=== PATIENT | male | born 1980 | race Caucasian/White ===

== ENCOUNTER 2020-10-02 09:44 | Inpatient (IN) | payer BC ==
[2020-10-02] MEDS ORDERED: ACETAMINOPHEN TAB 500 MG TAB PO STA (09:58)
--- NOTE | 2020-10-02 10:32 | ED ---
General Adult HPI - General Chief complaint: Fever Stated complaint: Fever,weakness Time Seen by Provider: 10/02/20 09:56 Source: patient Mode of arrival: wheelchair Limitations: physical limitation - History of Present Illness Initial comments: Dictation was produced using [employer] dictation software. please excuse any grammatical, word or spelling errors. This patient was cared for during a federal and state declared state of emergency secondary to Covid 19 Chief Complaint: 40-year-old malepast medical history presents to the emergency department for shortness of breath and fever History of Present Illness: 40-year-old male he states that he's been having 3-4 days of feeling weak, fever and shortness of breath. States that his recently recovered from bronchitis. Patient does not know if he's been exposed to anyone with Covid 19. Denies any medical history. Does not take any medications on a regular basis. He states that his Shortness of breath is minimal. Patient has no other complaints at this time. The ROS documented in this emergency department record has been reviewed and confirmed by me. Those systems with pertinent positive or negative responses have been documented in the HPI. All other systems are other negative and/or noncontributory. PHYSICAL EXAM: General Impression: Alert and oriented x3, not in acute distress HEENT: Normocephalic atraumatic, extra-ocular movements intact, pupils equal and reactive to light bilaterally, mucous membranes moist. Cardiovascular: Heart regular rate and rhythm Chest: Able to complete full sentences, no retractions, no tachypnea Abdomen: abdomen soft, non-tender, non-distended, no organomegaly Musculoskeletal: Pulses present and equal in all extremities, no peripheral edema Motor: no focal deficits noted Neurological: CN II-XII grossly intact, no focal motor or sensory deficits noted Skin: Intact with no visualized rashes Psych: Normal affect and mood ED course: 40-year-old male presents emergency department for fever, shortness of breath. Signs upon arrival shows temperature 1.1, heart rate of 111, oxygen saturation of 87% on room air. Clinical presentation concerning for Covid 19 Laboratory evaluation obtained. CBC, white count is unremarkable. D-dimer slightly elevated at 0.7. Psych is secondary to Covid 19 which he is positive for. No embolic panel shows mild acute kidney injury. His inflammatory markers are elevated. Chest x-ray shows by lateral infiltrates. Patient will be admitted for hypoxic respiratory failure secondary to Covid. He was given Decadron and Tylenol. She'll be admitted to [facility] hospitalist group. Case discussed with Dr. Menard that will be willing to accept patients care. EKG interpretation: Ventricular rate 106, sinus tachycardia,. Interval 134, QRS 86. No MA prolongation, no QTC prolongation, no ST or T-wave changes noted. EKG compared to 06/21/2016 showing no changes. Overall, this EKG is unremarkable - Related Data Home Medications Medication Instructions Recorded Confirmed No Known Home Medications 06/21/16 10/02/20 Allergies Allergy/AdvReac Type Severity Reaction Status Date / Time No Known Allergies Allergy Verified 10/02/20 10:31 Review of Systems ROS Statement: Those systems with pertinent positive or pertinent negative responses have been documented in the HPI. ROS Other: All systems not noted in ROS Statement are negative. Past Medical History Past Medical History: No Reported History History of Any Multi-Drug Resistant Organisms: None Reported Past Surgical History: Adenoidectomy, Tonsillectomy Past Psychological History: No Psychological Hx Reported Smoking Status: Former smoker Past Alcohol Use History: None Reported Past Drug Use History: None Reported General Exam Limitations: physical limitation Course Vital Signs 10/02/20 10/02/20 10/02/20 09:47 10:44 10:48 Temperature 103.1 F H Pulse Rate 111 H 105 H Respiratory 22 18 18 Rate Blood Pressure 117/75 132/81 O2 Sat by Pulse 87 L 92 L Oximetry 10/02/20 11:00 Temperature 102.5 F H Pulse Rate 105 H Respiratory 18 Rate Blood Pressure 124/64 O2 Sat by Pulse 92 L Oximetry Medical Decision Making - Lab Data Result diagrams: 10/02/20 10:44 10/02/20 10:44 Lab Results 10/02/20 10/02/20 10/02/20 Range/Units 10:44 10:44 10:44 WBC 5.6 (3.8-10.6) k/uL RBC 4.83 (4.30-5.90) m/uL Hgb 14.5 (13.0-17.5) gm/dL Hct 42.8 (39.0-53.0) % MCV 88.6 (80.0-100.0) fL MCH 29.9 (25.0-35.0) pg MCHC 33.8 (31.0-37.0) g/dL RDW 13.7 (11.5-15.5) % Plt Count 183 (150-450) k/uL MPV 7.0 Neutrophils % 78 % Lymphocytes % 16 % Monocytes % 4 % Eosinophils % 0 % Basophils % 0 % Neutrophils # 4.4 (1.3-7.7) k/uL Lymphocytes # 0.9 L (1.0-4.8) k/uL Monocytes # 0.3 (0-1.0) k/uL Eosinophils # 0.0 (0-0.7) k/uL Basophils # 0.0 (0-0.2) k/uL PT 10.7 (9.0-12.0) sec INR 1.0 (<1.2) APTT 24.6 (22.0-30.0) sec D-Dimer 0.70 H (<0.60) mg/L FEU Sodium 138 (137-145) mmol/L Potassium 3.7 (3.5-5.1) mmol/L Chloride 103 (98-107) mmol/L Carbon Dioxide 26 (22-30) mmol/L Anion Gap 9 mmol/L BUN 24 H (9-20) mg/dL Creatinine 1.78 H (0.66-1.25) mg/dL Est GFR (CKD-EPI)AfAm 54 (>60 ml/min/1.73 sqM) Est GFR (CKD-EPI)NonAf 47 (>60 ml/min/1.73 sqM) Glucose 140 H (74-99) mg/dL Plasma Lactic Acid Ankit (0.7-2.0) mmol/L Calcium 8.6 (8.4-10.2) mg/dL Magnesium 2.0 (1.6-2.3) mg/dL Total Bilirubin 0.5 (0.2-1.3) mg/dL AST 73 H (17-59) U/L ALT 41 (4-49) U/L Alkaline Phosphatase 103 (38-126) U/L Lactate Dehydrogenase 1420 H (313-618) U/L C-Reactive Protein 61.1 H (<10.0) mg/L Total Protein 7.0 (6.3-8.2) g/dL Albumin 4.2 (3.5-5.0) g/dL Coronavirus (PCR) (Not Detectd) 10/02/20 10/02/20 Range/Units 10:44 10:56 WBC (3.8-10.6) k/uL RBC (4.30-5.90) m/uL Hgb (13.0-17.5) gm/dL Hct (39.0-53.0) % MCV (80.0-100.0) fL MCH (25.0-35.0) pg MCHC (31.0-37.0) g/dL RDW (11.5-15.5) % Plt Count (150-450) k/uL MPV Neutrophils % % Lymphocytes % % Monocytes % % Eosinophils % % Basophils % % Neutrophils # (1.3-7.7) k/uL Lymphocytes # (1.0-4.8) k/uL Monocytes # (0-1.0) k/uL Eosinophils # (0-0.7) k/uL Basophils # (0-0.2) k/uL PT (9.0-12.0) sec INR (<1.2) APTT (22.0-30.0) sec D-Dimer (<0.60) mg/L FEU Sodium (137-145) mmol/L Potassium (3.5-5.1) mmol/L Chloride (98-107) mmol/L Carbon Dioxide (22-30) mmol/L Anion Gap mmol/L BUN (9-20) mg/dL Creatinine (0.66-1.25) mg/dL Est GFR (CKD-EPI)AfAm (>60 ml/min/1.73 sqM) Est GFR (CKD-EPI)NonAf (>60 ml/min/1.73 sqM) Glucose (74-99) mg/dL Plasma Lactic Acid Ankit 1.3 (0.7-2.0) mmol/L Calcium (8.4-10.2) mg/dL Magnesium (1.6-2.3) mg/dL Total Bilirubin (0.2-1.3) mg/dL AST (17-59) U/L ALT (4-49) U/L Alkaline Phosphatase (38-126) U/L Lactate Dehydrogenase (313-618) U/L C-Reactive Protein (<10.0) mg/L Total Protein (6.3-8.2) g/dL Albumin (3.5-5.0) g/dL Coronavirus (PCR) Detected A (Not Detectd) Disposition Clinical Impression: COVID-19 Disposition: ADMITTED IP TO THIS HOSP Condition: Fair Referrals: Kong Ring MD [Primary Care Provider] - 1-2 days Decision Time: 12:28
--- NOTE | 2020-10-02 10:37 | XR ---
EXAMINATION TYPE: XR chest 1V portable DATE OF EXAM: 10/02/2020 Comparison: 06/21/2016 Clinical History: 40-year-old male with shortness of breath, Suspected COVID-19 pneumonia Findings: The heart is borderline enlarged. Patchy right suprahilar opacity and increased diffuse interstitial patchy opacities. No sizable effusion. Impression: 1. Borderline heart size. 2. New bilateral interstitial infiltrates can be seen with COVID pneumonia.
[2020-10-02 10:59] LABS: Basophils % (A) 0 %; Eosinophils % (A) 0 %; HCT 42.8 % (39.0-53.0); HGB 14.5 gm/dL (13.0-17.5); Lymphocytes # (A) 0.9 k/uL (1.0-4.8); Lymphocytes % (A) 16 %; MCH 29.9 pg (25.0-35.0); MCHC 33.8 g/dL (31.0-37.0); MCV 88.6 fL (80.0-100.0); Monocytes # (A) 0.3 k/uL (0-1.0); Monocytes % (A) 4 %; Neutrophils # (A) 4.4 k/uL (1.3-7.7); Neutrophils % (A) 78 %; Platelet Count 183 k/uL (150-450); RBC 4.83 m/uL (4.30-5.90); RDW 13.7 % (11.5-15.5); WBC 5.6 k/uL (3.8-10.6)
[2020-10-02 11:13] LABS: Albumin 4.2 g/dL (3.5-5.0); C Reactive Protein 61.1 mg/L (<10.0); Calcium 8.6 mg/dL (8.4-10.2); Potassium 3.7 mmol/L (3.5-5.1); Total Bilirubin 0.5 mg/dL (0.2-1.3)
[2020-10-02 11:15] LABS: Partial Thromboplastin Time 24.6 sec (22.0-30.0); Prothrombin Time 10.7 sec (9.0-12.0)
[2020-10-02 11:19] LABS: D-Dimer 0.7 mg/L FEU (<0.60)
[2020-10-02] MEDS ORDERED: NALOXONE 0.4 MG/ML 1 ML VIAL IV PRN (12:05)
[2020-10-02] MEDS ORDERED: DEXAMETHASONE SOD PHOSPHATE 10 MG/ML 1 ML VIAL IV STA (12:06)
[2020-10-02] MEDS: SODIUM CHLORIDE 0.9% 1,000 ML IV SCH (12:20)
--- NOTE | 2020-10-02 14:01 | P.HPIM ---
History of Present Illness Pleasant 48-year-old male came in with complains of Bernadette's weakness fever he denied any shortness of breath patient but patient is hypoxic and requiring 4 L of oxygen patient denied any significant cough diarrhea. Patient is found to have Covid 19. Patient had a chest x-ray which is showing bilateral interstitial infiltrates. Review of Systems REVIEW OF SYSTEMS: CONSTITUTIONAL: As mentioned in HPI HEENT: No recent visual problems or hearing problems. Denied any sore throat. CARDIOVASCULAR: No chest pain, orthopnea, PND, no palpitations, no syncope. PULMONARY: No shortness of breath, no cough, no hemoptysis. GASTROINTESTINAL: No diarrhea, no nausea, no vomiting, no abdominal pain. NEUROLOGICAL: No headaches, no weakness, no numbness. HEMATOLOGICAL: Denies any bleeding or petechiae. GENITOURINARY: Denies any burning micturition, frequency, or urgency. MUSCULOSKELETAL/RHEUMATOLOGICAL: Denies any joint pain, swelling, or any muscle pain. ENDOCRINE: Denies any polyuria or polydipsia. The rest of the 14-point review of systems is negative. Past Medical History Past Medical History: No Reported History History of Any Multi-Drug Resistant Organisms: None Reported Past Surgical History: Adenoidectomy, Tonsillectomy Past Psychological History: No Psychological Hx Reported Smoking Status: Former smoker Past Alcohol Use History: None Reported Past Drug Use History: None Reported Medications and Allergies Home Medications Medication Instructions Recorded Confirmed Type No Known Home Medications 06/21/16 10/02/20 History Allergies Allergy/AdvReac Type Severity Reaction Status Date / Time No Known Allergies Allergy Verified 10/02/20 10:31 Physical Exam Vitals: Vital Signs Temp Pulse Resp BP Pulse Ox 10/02/20 13:00 100.4 F H 92 18 111/60 92 L 10/02/20 12:00 93 18 116/71 92 L 10/02/20 11:00 102.5 F H 105 H 18 124/64 92 L 10/02/20 10:48 18 10/02/20 10:44 105 H 18 132/81 92 L 10/02/20 09:47 103.1 F H 111 H 22 117/75 87 L Intake and Output 10/01/20 10/02/20 10/02/20 22:59 06:59 14:59 Other: Weight 136.078 kg PHYSICAL EXAMINATION: GENERAL: The patient is alert and oriented x3, not in any acute distress. Obese HEENT: Pupils are round and equally reacting to light. EOMI. No scleral icterus. No conjunctival pallor. Normocephalic, atraumatic. No pharyngeal erythema. No thyromegaly. CARDIOVASCULAR: S1 and S2 present. No murmurs, rubs, or gallops. PULMONARY: Chest is clear to auscultation, no wheezing or crackles. ABDOMEN: Soft, nontender, nondistended, normoactive bowel sounds. No palpable organomegaly. MUSCULOSKELETAL: No joint swelling or deformity. EXTREMITIES: No cyanosis, clubbing, or pedal edema. NEUROLOGICAL: Gross neurological examination did not reveal any focal deficits. SKIN: No rashes. Results CBC & Chem 7: 10/02/20 10:44 10/02/20 10:44 Labs: Abnormal Lab Results - Last 24 Hours (Table) 10/02/20 10/02/20 10/02/20 Range/Units 10:44 10:44 10:44 Lymphocytes # 0.9 L (1.0-4.8) k/uL D-Dimer 0.70 H (<0.60) mg/L FEU BUN 24 H (9-20) mg/dL Creatinine 1.78 H (0.66-1.25) mg/dL Glucose 140 H (74-99) mg/dL AST 73 H (17-59) U/L Lactate Dehydrogenase 1420 H (313-618) U/L C-Reactive Protein 61.1 H (<10.0) mg/L Coronavirus (PCR) (Not Detectd) 10/02/20 Range/Units 10:56 Lymphocytes # (1.0-4.8) k/uL D-Dimer (<0.60) mg/L FEU BUN (9-20) mg/dL Creatinine (0.66-1.25) mg/dL Glucose (74-99) mg/dL AST (17-59) U/L Lactate Dehydrogenase (313-618) U/L C-Reactive Protein (<10.0) mg/L Coronavirus (PCR) Detected A (Not Detectd) Assessment and Plan Plan: Covid 19 pneumonia: Was started on Decadron, multivitamins, IV fluids patient probably will benefit from Remdesivir. -Acute hypoxic respiratory failure secondary to assessment #1 -Acute renal failure creatinine 1.7 baseline is around 1.2. Patient will be started on IV fluids -GI prophylaxis with Pepcid - DVT prophylaxis with heparin as patient has renal dysfunction, patient's d- dimer is 0.7
[2020-10-02] MEDS: HEPARIN SODIUM,PORCINE/PF 5,000 UNIT/0.5 ML SYRINGE SQ SCH (14:45)
[2020-10-02] MEDS: ASCORBIC ACID 500 MG TAB PO SCH ×2 (14:45→22:31)
[2020-10-02 16:18] LABS: Ferritin 291.4 ng/mL (22.0-322.0)
[2020-10-02] MEDS ORDERED: REMDESIVIR 200 MG in SODIUM CHLORIDE 0.9% 250 ML IVPB ONE (19:00)
[2020-10-02] MEDS: FAMOTIDINE 20 MG TAB PO SCH (22:31)
[2020-10-03] MEDS: HEPARIN SODIUM,PORCINE/PF 5,000 UNIT/0.5 ML SYRINGE SQ SCH ×2 (01:39→09:36)
[2020-10-03] MEDS: ACETAMINOPHEN TAB 325 MG TAB PO PRN ×3 (03:57→18:26)
[2020-10-03] MEDS: FAMOTIDINE 20 MG TAB PO SCH ×2 (09:36→22:47)
[2020-10-03] MEDS: ASCORBIC ACID 500 MG TAB PO SCH ×2 (09:37→22:47)
[2020-10-03] MEDS: ZINC SULFATE 220 MG CAP PO SCH (09:37)
--- NOTE | 2020-10-03 09:48 | CONS ---
CONSULTATION DATE OF SERVICE: 10/02/2020 REASON FOR CONSULTATION: COVID-19 infection. HISTORY OF PRESENT ILLNESS: The patient is a 40-year-old male presenting to the ER with chief complaints of generalized weakness, fever, and shortness of breath. This patient's symptoms have been going on for about 4 days before presentation to the hospital. 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 He has been starting to get some sore throat, fever as high as 102 to 103 degrees Fahrenheit with associated chills, generalized body aches, shortness of breath on minimal exertion. He also has got cough moderate intensity but not bringing up any sputum. Did not feel nauseated, decreased oral intake. No abdominal pain and did have some diarrhea. With these symptoms, the patient was evaluated by the ER physician. On arrival to the ER, the patient did have a fever of 103 degrees Fahrenheit. The patient is also hypoxic with O2 sats of 87% on room air, currently 91% on 6 L nasal cannula. The patient did have a normal white count with lymphopenia. Elevated D-dimer is 0.70. Creatinine was 1.78. AST elevated 73. Procalcitonin 0.86. LDH is 1420. CRP 61.1. COVID test was positive. The patient did have a chest x-ray reported to bilateral interstitial infiltrate that can be seen with COVID pneumonia. The patient has been admitted to the hospital. Infectious Disease was consulted for further management. DIAGNOSTIC IMPRESSION AND PLAN: Patient admitted to the hospital with a fever, shortness of breath, cough in this patient who did have a fever of 103 degrees Fahrenheit on admission, hypoxemia with O2 sats of 86% on room air evidence of bilateral multifocal pneumonia secondary to COVID- 19 infection. With his symptoms of hypoxemia, does qualify him remdesivir therapy. PLAN: 1. The patient was started on remdesivir 200 mg x1 followed by 100 mg daily for 4 more doses. 2. Lovenox, dexamethasone, Zinc, . 3. Droplet isolation and respiratory support. 4. I will follow on clinical condition and investigations to further adjust medication if needed. Thank you for this consultation. Will follow this patient along with you. MMODL / IJN: [id number] /
--- NOTE | 2020-10-03 12:01 | XR ---
EXAMINATION TYPE: XR chest 1V portable DATE OF EXAM: 10/03/2020 Comparison: 10/02/2020 Clinical History: 40-year-old male shortness of breath, low 02 Findings: Low lung volumes. Heart borderline enlarged. Patchy bilateral airspace opacities have progressed from 10/02/2020. No pleural effusion. Impression: Hypoventilatory changes and progressive bilateral diffuse patchy airspace disease.
[2020-10-03 12:18] LABS: ABG Base Excess 0.3 mmol/L; ABG HCO3 24 mmol/L (21-25); ABG Oxygen Saturation 99.2 % (94-97); ABG PCO2 34 mmHg (35-45); ABG PH 7.46 (7.35-7.45); ABG PO2 128 mmHg (83-108); ABG TCO2 25 mmol/L (19-24); Allen Test Performed? Yes
[2020-10-03] MEDS ORDERED: LORazepam 2 MG/ML INJ IV STA (14:06)
[2020-10-03] MEDS ORDERED: DEXAMETHASONE SOD PHOSPHATE 10 MG/ML 1 ML VIAL IV STA (14:06)
[2020-10-03] MEDS: SODIUM CHLORIDE 0.9% 1,000 ML IV SCH (14:12)
[2020-10-03] MEDS: DEXAMETHASONE SOD PHOSPHATE 10 MG/ML 1 ML VIAL IV SCH (14:39)
[2020-10-03] MEDS ORDERED: ENOXAPARIN 40 MG/0.4 ML SYRINGE SQ SCH (14:45)
[2020-10-03] MEDS: CHOLECALCIFEROL 25 MCG (1000 IU) TABLET PO SCH (15:14)
[2020-10-03] MEDS ORDERED: TOCILIZUMAB 800 MG in SODIUM CHLORIDE 0.9% 60 ML IV ONE (15:15)
--- NOTE | 2020-10-03 16:54 | P.CNPUL ---
History of Present Illness Consult date: 10/03/20 Requesting physician: Amarjit Payton Reason for consult: dyspnea, cough, hypoxemia, pneumonia, abnormal CXR/CT Chief complaint: Shortness of breath. History of present illness: 40-year-old male, who has no other past medical history, who comes into the emergency room, with 3-4 days of feeling weak, fever, cough, shortness of breath, and just feeling very fatigued. His apparently recently recovered from "bronchitis". Apparently the patient tested positive for coronavirus. We saw the patient in the emergency department. It was at the request of one of the ER nurses. The patient was on BiPAP with settings of IPAP 16, EPAP 6, and 100%. The patient was getting saline at 100 mL an hour. The patient had been started on REM. Rather than continue that, we chose to give him TOCI. His D- dimer test was 0.82. His blood gases showed a pO2 of 128, pCO2 34, and a pH of 7.46. That was on 100%. His electrolytes look pretty normal. His BUN was 24, creatinine was 1.78. Pro-calcitonin level was 0.86. C-reactive protein was 65.9. The chest x-ray showed diffuse bilateral opacities. Review of Systems REVIEW OF SYSTEMS: CONSTITUTIONAL: Weakness, fatigue, fever. NEUROLOGIC: [ Negative.] HEENT: [ Negative.] CARDIAC: [Negative.] PULMONARY: Shortness of breath, cough, chest congestion. GI: [Negative.] : [Negative.] RHEUMATOLOGIC: [ Negative.] IMMUNOLOGIC: [ Negative.] ENDOCRINE: [Negative. ] DERMATOLOGIC: [Negative.] Past Medical History Past Medical History: No Reported History History of Any Multi-Drug Resistant Organisms: None Reported Past Surgical History: Adenoidectomy, Tonsillectomy Past Anesthesia/Blood Transfusion Reactions: No Reported Reaction Smoking Status: Never smoker - Past Family History Mother Additional Family Medical History / Comment(s): Obese Father Family Medical History: Myocardial Infarction ([place]) Medications and Allergies Home Medications Medication Instructions Recorded Confirmed Type No Known Home Medications 06/21/16 10/02/20 History Allergies Allergy/AdvReac Type Severity Reaction Status Date / Time No Known Allergies Allergy Verified 10/02/20 10:31 Physical Exam Osteopathic Statement: *. No significant issues noted on an osteopathic struc tural exam other than those noted in the History and Physical/Consult. Vitals: Vital Signs Temp Pulse Resp BP Pulse Ox 10/03/20 16:00 100.3 F H 112 H 31 H 129/87 88 L 10/03/20 15:00 110 H 31 H 154/82 88 L 10/03/20 14:00 108 H 41 H 143/82 88 L 10/03/20 13:43 100.3 F H 10/03/20 13:30 112 H 30 H 131/84 86 L 10/03/20 13:00 112 H 30 H 136/81 87 L 10/03/20 12:30 115 H 28 H 140/81 92 L 10/03/20 12:00 118 H 33 H 159/81 89 L 10/03/20 11:50 116 H 28 H 159/81 84 L 10/03/20 11:30 120 H 27 H 159/81 75 L 10/03/20 11:00 103.1 F H 113 H 23 159/81 75 L 10/03/20 10:00 116 H 25 H 150/86 87 L 10/03/20 09:00 109 H 29 H 146/89 87 L 10/03/20 08:19 101 H 26 H 146/89 94 L 10/03/20 08:13 98.9 F 103 H 28 H 146/89 94 L 10/03/20 08:12 83 L 10/03/20 06:39 99.2 F 103 H 20 138/90 86 L 10/03/20 05:05 102.3 F H 109 H 22 147/70 86 L 10/03/20 03:46 102.8 F H 108 H 22 147/87 89 L 10/03/20 03:00 79 L 10/03/20 01:30 100 18 85 L 10/02/20 21:39 91 L 10/02/20 20:53 85 L 10/02/20 20:32 99.3 F 98 22 124/99 88 L 10/02/20 17:00 86 18 125/78 93 L Intake and Output 10/03/20 10/03/20 10/03/20 06:59 14:59 22:59 Output Total 475 Balance -475 Output: Urine 475 Other: Weight 136.078 kg Quite tachypnea. Currently on BiPAP. Mild conversational dyspnea. Saturations 88%. HEENT examination is grossly unremarkable. Neck supple. Full range of motion. No adenopathy thyromegaly or neck vein distention. Cardiovascular examination reveals regular rhythm rate. S1-S2 normal. No S3 or S4. No discernible murmur noted. Heart rate 112. Heart sounds are distant. Lungs reveal diffuse coarse rhonchi. Bibasilar crackles are noted. Breath sounds equal bilaterally. Abdomen soft bowel sounds are heard. No masses or tenderness. Extremities are intact. No cyanosis clubbing or edema. Skin is without rash or lesion. Neurologic examination is brief but nonfocal. Results - Laboratory Findings CBC and BMP: 10/02/20 10:44 10/02/20 10:44 ABG ABG pH 7.46 (7.35-7.45) H 10/03/20 12:15 ABG pCO2 34 mmHg (35-45) L 10/03/20 12:15 ABG pO2 128 mmHg (83-108) H 10/03/20 12:15 ABG O2 Saturation 99.2 % (94-97) H 10/03/20 12:15 PT/INR, D-dimer PT 10.7 sec (9.0-12.0) 10/02/20 10:44 INR 1.0 (<1.2) 10/02/20 10:44 D-Dimer 0.82 mg/L FEU (<0.60) H 10/03/20 16:11 Abnormal lab findings: Abnormal Labs 10/02/20 10/02/20 10/02/20 10:44 10:44 10:44 Lymphocytes # 0.9 L D-Dimer 0.70 H ABG pH ABG pCO2 ABG pO2 ABG Total CO2 ABG O2 Saturation BUN 24 H Creatinine 1.78 H Glucose 140 H AST 73 H Lactate Dehydrogenase 1420 H C-Reactive Protein 61.1 H Procalcitonin Coronavirus (PCR) 10/02/20 10/02/20 10/03/20 10:44 10:56 12:15 Lymphocytes # D-Dimer ABG pH 7.46 H ABG pCO2 34 L ABG pO2 128 H ABG Total CO2 25 H ABG O2 Saturation 99.2 H BUN Creatinine Glucose AST Lactate Dehydrogenase C-Reactive Protein Procalcitonin 0.86 H Coronavirus (PCR) Detected A 10/03/20 10/03/20 16:11 16:11 Lymphocytes # D-Dimer 0.82 H ABG pH ABG pCO2 ABG pO2 ABG Total CO2 ABG O2 Saturation BUN Creatinine Glucose AST Lactate Dehydrogenase C-Reactive Protein 65.9 H Procalcitonin Coronavirus (PCR) - Diagnostic Findings Chest x-ray: image reviewed Assessment and Plan Assessment: Acute hypoxemic respiratory failure secondary to COVID 19 pneumonitis. Obesity. No significant past medical history. Plan: Plan dated 10/01/2020. The patient's REM was discontinued. We chose to give the patient TOCI. The patient should also get Decadron, Lovenox, vitamin C, vitamin D3, and zinc. The patient is currently in the emergency department. He may need to come up to the intensive care unit. Unfortunately, we do not have any ICU beds. Additional recommendations and suggestions are forthcoming. Prognosis is guarded. We also ordered 1 unit of convalescent plasma. Time with Patient: Greater than 30
[2020-10-03] MEDS ORDERED: REMDESIVIR 100 MG in SODIUM CHLORIDE 0.9% 250 ML IVPB SCH (18:00)
[2020-10-03] MEDS: LACTATED RINGERS 1,000 ML IV SCH (18:17)
--- NOTE | 2020-10-03 21:55 | P.PN ---
Progress Note - Text Progress Note Date: 10/03/20 History of Present Illness Pleasant 48-year-old male, whose PCP is Dr. Ring, came in with complains of weakness fever he denied any shortness of breath patient but patient is hypoxic and requiring 4 L of oxygen patient denied any significant cough diarrhea. Patient is found to have Covid 19. Patient had a chest x-ray which is showing bilateral interstitial infiltrates. Today-tired short of breath. Febrile. Hypoxic. Placed on BiPAP. Review of systems: Was done for constitutional, cardiovascular, GI, pulmonary. relevant finding as above Active Medications Acetaminophen (Acetaminophen Tab 325 Mg Tab) 650 mg PO Q6HR PRN PRN Reason: Mild Pain or Fever > 100.5 Last Admin: 10/03/20 18:26 Dose: 650 mg Documented by: Ascorbic Acid (Ascorbic Acid 500 Mg Tab) 500 mg PO BID [facility] Last Admin: 10/03/20 09:37 Dose: 500 mg Documented by: Cholecalciferol (Cholecalciferol 25 Mcg (1000 Iu) Tablet) 125 mcg PO DAILY [facility] Last Admin: 10/03/20 15:14 Dose: 125 mcg Documented by: Dexamethasone Sodium Phosphate (Dexamethasone Sod Phosphate 10 Mg/Ml 1 Ml Vial) 6 mg IV DAILY [facility] Last Admin: 10/03/20 14:39 Dose: Not Given Documented by: Enoxaparin Sodium (Enoxaparin 40 Mg/0.4 Ml Syringe) 40 mg SQ DAILY [facility] Last Admin: 10/03/20 15:17 Dose: 40 mg Documented by: Famotidine (Famotidine 20 Mg Tab) 20 mg PO BID [facility] Last Admin: 10/03/20 09:36 Dose: 20 mg Documented by: Lactated Ringer's (Lactated Ringers) 1,000 mls @ 125 mls/hr IV .Q8H [facility] Last Admin: 10/03/20 18:17 Dose: 125 mls/hr Documented by: Naloxone HCl (Naloxone 0.4 Mg/Ml 1 Ml Vial) 0.2 mg IV Q2M PRN PRN Reason: Opioid Reversal Zinc Sulfate (Zinc Sulfate 220 Mg Cap) 220 mg PO DAILY [facility] Last Admin: 10/03/20 09:37 Dose: 220 mg Documented by: On examination: VITAL SIGNS: 103.1, 120, 27, 159/81, 75% on high flow oxygen GENERAL APPEARANCE: BMI 41.8, laying in bed, short of breath with BiPAP . RESPIRATORY: Respiratory effort increased. NEUROLOGICAL: No facial asymmetry. Moving all 4 limbs. PSYCHIATRY: Alert and oriented x3. Mood and affect anxious. Rest of the exam as per pulmonary and nursing INVESTIGATIONS, reviewed in the clinical context: D-dimer 0.82. AB.46, pCO2 34, pO2 128 CRP 65.9 Chest x-ray film personally reviewed by me-bilateral confluent infiltrates Admission labs: Pro-calcitonin 0.86 Coronavirus [PCR]: Detected Creatinine 1.78 Assessment and Plan Covid 19 pneumonia: Not improving -on Decadron, multivitamins, Lovenox. Also on vitamin C, vitamin D, Pepcid, zinc Remdesivir, ACTEMRA given today Sepsis from COVID 19 pneumonia IV fluids. Follow clinically -Acute hypoxic respiratory failure secondary to COVID 19 pneumonia, worsening on high flow oxygen placed on BiPAP. 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 Continue with IV fluids. Follow labs. Check UA -Morbid obesity BMI 41.8 Follow weight loss diet as an outpatient and follow with PCP Care was discussed with the patient. Pulmonary and ID were consulted. Given the complexity and severity of patient's condition expect the patient to be in the hospital at least for 2 overnights
--- NOTE | 2020-10-03 23:54 | PN ---
PROGRESS NOTE DATE OF SERVICE: 10/03/2020. REASON FOR FOLLOW UP: COVID-19 pneumonia. INTERVAL HISTORY: The patient did go into respiratory distress requiring BiPAP. The patient has been spiking fever of 101-102 degrees Fahrenheit. The patient denies having any chest pain. He did have a cough, not bringing up any sputum. No vomiting or diarrhea has been reported. PHYSICAL EXAMINATION: Blood pressure 132/83 with a pulse of 90. Temperature 100.2. He is 95% on BiPAP. General description is a middle-aged male lying in bed in no distress. RESPIRATORY system: Unlabored breathing, decreased breath sounds in the base. No wheeze. HEART S1, S2. Regular rate and rhythm. ABDOMEN: Soft, no tenderness. LABS: Hemoglobin is 14.5, white count is 5.7, BUN of 24, creatinine 1.78. Did have elevated LDH and CRP. Blood culture has been negative. DIAGNOSTIC IMPRESSION AND PLAN: Patient with acute COVID-19 infection in this patient with acute respiratory failure. The patient now seems to have worsening of his clinical condition. The patient did receive a dose of Actemra. Remdesivir was discontinued even in my clinical opinion may have helped the patient if continued. The patient is currently on dexamethasone, Lovenox, zinc, ascorbic acid. Pulmonary is managing his COVID-19. Infectious Disease will sign off. Please call back with any questions arise in his infectious disease care. MMODL / IJN: [id number] /
[2020-10-04] MEDS: ENOXAPARIN 40 MG/0.4 ML SYRINGE SQ SCH ×3 (00:09→20:06)
[2020-10-04] MEDS: LACTATED RINGERS 1,000 ML IV SCH ×3 (01:59→20:06)
[2020-10-04 08:12] LABS: ABG Base Excess 3.2 mmol/L; ABG HCO3 28 mmol/L (21-25); ABG Oxygen Saturation 85.2 % (94-97); ABG PCO2 45 mmHg (35-45); ABG TCO2 29 mmol/L (19-24); Allen Test Performed? Yes
[2020-10-04 08:14] LABS: ABG PO2 50 mmHg (83-108)
--- NOTE | 2020-10-04 08:33 | XR ---
EXAMINATION TYPE: XR chest 1V DATE OF EXAM: 10/04/2020 COMPARISON: 10/03/2020 INDICATION: Short of breath TECHNIQUE: Single frontal view of the chest is obtained. FINDINGS: The heart size is normal. The pulmonary vasculature is normal. Diffuse patchy infiltrates are present bilaterally similar to prior exam. Correlate for atypical numb er IMPRESSION: 1. Stable diffuse patchy infiltrates present bilaterally
[2020-10-04 09:23] LABS: African American GFR (CKD) >90 (>60 ml/min/1.73 sqM); Anion Gap 8 mmol/L; Blood Urea Nitrogen 26 mg/dL (9-20); C Reactive Protein 81.8 mg/L (<10.0); Calcium 8.7 mg/dL (8.4-10.2); Carbon Dioxide 27 mmol/L (22-30); Chloride 108 mmol/L (98-107); Glucose 146 mg/dL (74-99); Non-African American GFR(CKD) 87 (>60 ml/min/1.73 sqM); Potassium 4.4 mmol/L (3.5-5.1); Sodium 143 mmol/L (137-145)
[2020-10-04] MEDS: DEXAMETHASONE SOD PHOSPHATE 10 MG/ML 1 ML VIAL IV SCH (09:27)
[2020-10-04] MEDS: FAMOTIDINE 20 MG TAB PO SCH ×2 (10:25→20:06)
[2020-10-04] MEDS: ASCORBIC ACID 500 MG TAB PO SCH ×2 (10:25→20:06)
[2020-10-04] MEDS: CHOLECALCIFEROL 25 MCG (1000 IU) TABLET PO SCH (10:25)
[2020-10-04] MEDS: ZINC SULFATE 220 MG CAP PO SCH (10:25)
[2020-10-04 11:58] LABS: Glucose,Whole Blood 151 mg/dL (75-99)
--- NOTE | 2020-10-04 12:15 | P.PN ---
Subjective Progress Note Date: 10/04/20 Principal diagnosis: Hypoxemic respiratory failure. 40-year-old male, who has no other past medical history, who comes into the emergency room, with 3-4 days of feeling weak, fever, cough, shortness of breath, and just feeling very fatigued. His apparently recently recovered from "bronchitis". Apparently the patient tested positive for coronavirus. We saw the patient in the emergency department. It was at the request of one of the ER nurses. The patient was on BiPAP with settings of IPAP 16, EPAP 6, and 100%. The patient was getting saline at 100 mL an hour. The patient had been started on REM. Rather than continue that, we chose to give him TOCI. His D-dimer test was 0.82. His blood gases showed a pO2 of 128, pCO2 34, and a pH of 7.46. That was on 100%. His electrolytes look pretty normal. His BUN was 24, creatinine was 1.78. Pro-calcitonin level was 0.86. C-reactive protein was 65.9. The chest x-ray showed diffuse bilateral opacities. Progress note dated 10/04/2020. The patient remains on BiPAP at 100%. His saturations are only in the low to mid 80s. For that reason, the patient will be transferred to the intensive care unit. He is getting saline at KVO. His BiPAP settings included an IPAP of 16, EPAP 6. The patient did receive TOCI. In addition, he received the COVID vitamins, Decadron, and Lovenox. Today's labs include a blood gas showing a pO2 of only 50, pCO2 45, and a pH is 7.40. That was on 100%. D-dimer today is 0. 83. Sodium 143, potassium 4.4, chlorides 108, CO2 27, anion gap 8, BUN 26, and creatinine 1.07. C-reactive protein is 81.8. Chest x-ray continues to show significant bilateral infiltrates. Objective - Vital Signs Vital signs: Vital Signs Temp 99.0 F 10/04/20 08:00 Pulse 90 10/04/20 08:00 Resp 20 10/04/20 10:05 BP 151/93 10/04/20 08:00 Pulse Ox 83 L 10/04/20 10:05 Intake & Output 04/11/1810/04/20 10/04/20 18:59 06:59 18:59 Intake Total 270 0 Output Total 50 200 Balance -50 70 0 Weight 136.078 kg 137 kg Intake: Oral 0 Blood Product 270 Ffp Convalescent Plasma 270 Cpd Unit [id number] Output: Urine 50 200 Other: Voiding Method Bedpan Urinal # Voids 1 - Exam Quite tachypnea. Currently on BiPAP. Mild conversational dyspnea. Saturations 83%. HEENT examination is grossly unremarkable. Neck supple. Full range of motion. No adenopathy thyromegaly or neck vein distention. Cardiovascular examination reveals regular rhythm rate. S1-S2 normal. No S3 or S4. No discernible murmur noted. Heart rate 99 bpm. Heart sounds are distant. Lungs reveal diffuse coarse rhonchi. Bibasilar crackles are noted. Breath sounds equal bilaterally. Abdomen soft bowel sounds are heard. No masses or tenderness. Extremities are intact. No cyanosis clubbing or edema. Skin is without rash or lesion. Neurologic examination is brief but nonfocal. - Labs CBC & Chem 7: 10/02/20 10:44 10/04/20 08:38 Labs: Abnormal Lab Results - Last 24 Hours (Table) 10/03/20 10/03/20 10/03/20 Range/Units 12:15 16:11 16:11 D-Dimer 0.82 H (<0.60) mg/L FEU ABG pH 7.46 H (7.35-7.45) ABG pCO2 34 L (35-45) mmHg ABG pO2 128 H (83-108) mmHg ABG HCO3 (21-25) mmol/L ABG Total CO2 25 H (19-24) mmol/L ABG O2 Saturation 99.2 H (94-97) % Chloride (98-107) mmol/L BUN (9-20) mg/dL Glucose (74-99) mg/dL POC Glucose (mg/dL) (75-99) mg/dL C-Reactive Protein 65.9 H (<10.0) mg/L 10/04/20 10/04/20 10/04/20 Range/Units 08:09 08:38 08:38 D-Dimer 0.83 H (<0.60) mg/L FEU ABG pH (7.35-7.45) ABG pCO2 (35-45) mmHg ABG pO2 50 L* (83-108) mmHg ABG HCO3 28 H (21-25) mmol/L ABG Total CO2 29 H (19-24) mmol/L ABG O2 Saturation 85.2 L (94-97) % Chloride 108 H (98-107) mmol/L BUN 26 H (9-20) mg/dL Glucose 146 H (74-99) mg/dL POC Glucose (mg/dL) (75-99) mg/dL C-Reactive Protein 81.8 H (<10.0) mg/L 10/04/20 Range/Units 11:55 D-Dimer (<0.60) mg/L FEU ABG pH (7.35-7.45) ABG pCO2 (35-45) mmHg ABG pO2 (83-108) mmHg ABG HCO3 (21-25) mmol/L ABG Total CO2 (19-24) mmol/L ABG O2 Saturation (94-97) % Chloride (98-107) mmol/L BUN (9-20) mg/dL Glucose (74-99) mg/dL POC Glucose (mg/dL) 151 H (75-99) mg/dL C-Reactive Protein (<10.0) mg/L Microbiology - Last 24 Hours (Table) 10/02/20 10:35 Blood Culture - Preliminary Blood No Growth after 24 hours 10/02/20 10:20 Blood Culture - Preliminary Blood No Growth after 24 hours Assessment and Plan Assessment: Acute hypoxemic respiratory failure secondary to COVID 19 pneumonitis. Obesity. No significant past medical history. Plan: Plan dated 10/01/2020. The patient's REM was discontinued. We chose to give the patient TOCI. The patient should also get Decadron, Lovenox, vitamin C, vitamin D3, and zinc. The patient is currently in the emergency department. He may need to come up to the intensive care unit. Unfortunately, we do not have any ICU beds. Additional recommendations and suggestions are forthcoming. Prognosis is guarded. We also ordered 1 unit of convalescent plasma. Plan dated 10/04/2020. Because of this increasing oxygen requirements, REM, was discontinued. We did give the patient TOCI. In addition, the patient will get Decadron, Lovenox, vitamin C, vitamin D3, and zinc. The patient was transferred to the intensive care unit for closer monitoring and observation. The patient may end up on the mechanical ventilator. We also ordered 1 unit of convalescent plasma. Additional recommendations and suggestions are forthcoming. Prognosis is very guarded. Time with Patient: Greater than 30
[2020-10-04 12:22] LABS: Glucose,Whole Blood 149 mg/dL (75-99)
[2020-10-04] MEDS: fentaNYL (PF) 50 MCG/ML 2 ML AMP IVP PRN (21:15)
--- NOTE | 2020-10-04 23:19 | P.PN ---
Progress Note - Text Progress Note Date: 10/04/20 History of Present Illness Pleasant 48-year-old male, whose PCP is Dr. Ring, came in with complains of weakness fever he denied any shortness of breath patient but patient is hypoxic and requiring 4 L of oxygen patient denied any significant cough diarrhea. Patient is found to have Covid 19. Patient had a chest x-ray which is showing bilateral interstitial infiltrates. Patient did get a dose of ACTEMRA. ID did start the patient on Remdesivir. Pulmonary did not feel the need for the same. Discontinued Today-patient remains quite short of breath. On BiPAP overnight. Tired. This morning patient being moved to the ICU. Review of systems: Was done for constitutional, cardiovascular, GI, pulmonary. relevant finding as above Active Medications Acetaminophen (Acetaminophen Tab 325 Mg Tab) 650 mg PO Q6HR PRN PRN Reason: Mild Pain or Fever > 100.5 Last Admin: 10/03/20 18:26 Dose: 650 mg Documented by: Ascorbic Acid (Ascorbic Acid 500 Mg Tab) 500 mg PO BID [facility] Last Admin: 10/04/20 20:06 Dose: 500 mg Documented by: Cholecalciferol (Cholecalciferol 25 Mcg (1000 Iu) Tablet) 125 mcg PO DAILY [facility] Last Admin: 10/04/20 10:25 Dose: Not Given Documented by: Dexamethasone Sodium Phosphate (Dexamethasone Sod Phosphate 10 Mg/Ml 1 Ml Vial) 6 mg IV DAILY [facility] Last Admin: 10/04/20 09:27 Dose: 6 mg Documented by: Enoxaparin Sodium (Enoxaparin 40 Mg/0.4 Ml Syringe) 40 mg SQ BID [facility] Last Admin: 10/04/20 20:06 Dose: 40 mg Documented by: Famotidine (Famotidine 20 Mg Tab) 20 mg PO BID [facility] Last Admin: 10/04/20 20:06 Dose: 20 mg Documented by: Fentanyl Citrate (Fentanyl (Pf) 50 Mcg/Ml 2 Ml Amp) 25 mcg IVP Q4H PRN PRN Reason: pain Last Admin: 10/04/20 21:15 Dose: 25 mcg Documented by: Lactated Ringer's (Lactated Ringers) 1,000 mls @ 20 mls/hr IV .Q24H [facility] Last Admin: 10/04/20 20:06 Dose: 20 mls/hr Documented by: Naloxone HCl (Naloxone 0.4 Mg/Ml 1 Ml Vial) 0.2 mg IV Q2M PRN PRN Reason: Opioid Reversal Zinc Sulfate (Zinc Sulfate 220 Mg Cap) 220 mg PO DAILY [facility] Last Admin: 10/04/20 10:25 Dose: Not Given Documented by: On examination: VITAL SIGNS: 100.1, 92, 27, 140 tube 100, 88% on 100% BiPAP GENERAL APPEARANCE: , laying in bed, short of breath with BiPAP . RESPIRATORY: Respiratory effort increased. NEUROLOGICAL: No facial asymmetry. Moving all 4 limbs. PSYCHIATRY: Alert and oriented x3. Mood and affect anxious. Rest of the exam as per pulmonary and nursing INVESTIGATIONS, reviewed in the clinical context: October 04: D-dimer 0.83 ABG: PO2 50 pCO2 45. Potassium 4.4 creatinine 1.07 CRP 81.8 D-dimer 0.82. AB.46, pCO2 34, pO2 128 CRP 65.9 Chest x-ray film personally reviewed by me-bilateral confluent infiltrates Admission labs: Pro-calcitonin 0.86 Coronavirus [PCR]: Detected Creatinine 1.78 Assessment and Plan Covid 19 pneumonia: Worsening -on Decadron, multivitamins, Lovenox.vitamin C, vitamin D, Pepcid, zinc (Remdesivir given 1 dose per ID. Discontinued by pulmonary.), ACTEMRA given Sepsis from COVID 19 pneumonia IV fluids. Follow clinically -Acute severe hypoxic respiratory failure secondary to COVID 19 pneumonia, worsening BiPAP. Patient being moved to the ICU today. -Acute renal failure creatinine 1.7 likely ATN.-Improving Continue with IV fluids. Creatinine 1.07 -Morbid obesity BMI 41.8 Follow weight loss diet as an outpatient and follow with PCP -Hyperglycemia secondary to steroids Follow Accu-Cheks Discussed with patient. moved to the ICU Follow with classification case manager
[2020-10-05] MEDS: fentaNYL (PF) 50 MCG/ML 2 ML AMP IVP PRN (01:52)
[2020-10-05 06:01] LABS: Basophils % (A) 0 %; Eosinophils # (A) 0.1 k/uL (0-0.7); Eosinophils % (A) 1 %; HCT 41.5 % (39.0-53.0); HGB 13.9 gm/dL (13.0-17.5); Lymphocytes # (A) 0.8 k/uL (1.0-4.8); Lymphocytes % (A) 12 %; MCH 30.5 pg (25.0-35.0); MCHC 33.6 g/dL (31.0-37.0); MCV 90.8 fL (80.0-100.0); Mean Platelet Volume 7.6; Monocytes # (A) 0.2 k/uL (0-1.0); Monocytes % (A) 4 %; Neutrophils # (A) 5.8 k/uL (1.3-7.7); Neutrophils % (A) 83 %; Platelet Count 254 k/uL (150-450); RBC 4.57 m/uL (4.30-5.90); RDW 13.6 % (11.5-15.5)
[2020-10-05 06:21] LABS: African American GFR (CKD) >90 (>60 ml/min/1.73 sqM); Anion Gap 7 mmol/L; Blood Urea Nitrogen 30 mg/dL (9-20); C Reactive Protein 53.1 mg/L (<10.0); Calcium 8.5 mg/dL (8.4-10.2); Carbon Dioxide 28 mmol/L (22-30); Chloride 107 mmol/L (98-107); Glucose 133 mg/dL (74-99); Non-African American GFR(CKD) 83 (>60 ml/min/1.73 sqM); Potassium 4.8 mmol/L (3.5-5.1); Sodium 142 mmol/L (137-145)
[2020-10-05 06:31] LABS: LDH 2858 U/L (313-618)
--- NOTE | 2020-10-05 07:45 | XR ---
Do disease in the EXAMINATION TYPE: XR chest 1V portable DATE OF EXAM: 10/05/2020 COMPARISON: The patient seems slightly HISTORY: Chest pain TECHNIQUE: Single frontal view of the chest is obtained. FINDINGS: Patchy basilar, perihilar and upper lobe and basilar infiltrates. No significant change seen. The cardiac silhouette size is within normal limits. The osseous structures are intact. IMPRESSION: 1. Patchy basilar, perihilar and upper lobe and basilar infiltrates. No significant change seen.
[2020-10-05] MEDS: ASCORBIC ACID 500 MG TAB PO SCH ×2 (08:55→21:07)
[2020-10-05] MEDS: CHOLECALCIFEROL 25 MCG (1000 IU) TABLET PO SCH (08:55)
[2020-10-05] MEDS: DEXAMETHASONE SOD PHOSPHATE 10 MG/ML 1 ML VIAL IV SCH (08:56)
[2020-10-05] MEDS: ZINC SULFATE 220 MG CAP PO SCH (08:56)
[2020-10-05] MEDS: ENOXAPARIN 40 MG/0.4 ML SYRINGE SQ SCH ×2 (08:56→20:59)
[2020-10-05] MEDS: FAMOTIDINE 20 MG TAB PO SCH ×2 (08:56→21:07)
[2020-10-05] MEDS ORDERED: LORazepam 2 MG/ML INJ IV PRN (09:50)
--- NOTE | 2020-10-05 13:22 | P.PN ---
Subjective Progress Note Date: 10/05/20 Principal diagnosis: Hypoxemic respiratory failure. 40-year-old male, who has no other past medical history, who comes into the emergency room, with 3-4 days of feeling weak, fever, cough, shortness of breath, and just feeling very fatigued. His apparently recently recovered from "bronchitis". Apparently the patient tested positive for coronavirus. We saw the patient in the emergency department. It was at the request of one of the ER nurses. The patient was on BiPAP with settings of IPAP 16, EPAP 6, and 100%. The patient was getting saline at 100 mL an hour. The patient had been started on REM. Rather than continue that, we chose to give him TOCI. His D-dimer test was 0.82. His blood gases showed a pO2 of 128, pCO2 34, and a pH of 7.46. That was on 100%. His electrolytes look pretty normal. His BUN was 24, creatinine was 1.78. Pro-calcitonin level was 0.86. C-reactive protein was 65.9. The chest x-ray showed diffuse bilateral opacities. Progress note dated 10/04/2020. The patient remains on BiPAP at 100%. His saturations are only in the low to mid 80s. For that reason, the patient will be transferred to the intensive care unit. He is getting saline at KVO. His BiPAP settings included an IPAP of 16, EPAP 6. The patient did receive TOCI. In addition, he received the COVID vitamins, Decadron, and Lovenox. Today's labs include a blood gas showing a pO2 of only 50, pCO2 45, and a pH is 7.40. That was on 100%. D-dimer today is 0. 83. Sodium 143, potassium 4.4, chlorides 108, CO2 27, anion gap 8, BUN 26, and creatinine 1.07. C-reactive protein is 81.8. Chest x-ray continues to show significant bilateral infiltrates. Progress note dated 10/05/2020. 40-year-old male with a history of acute hypoxemic respiratory failure secondary to COVID 19 pneumonitis. Currently, the patient remains on BiPAP with an IPAP of 16, EPAP of 8. FiO2 100%. Patient is getting lactated Ringer's at 20 mL an hour. We going to try him on some AIRVO today so that he can eat. White count is 7, hemoglobin 13.9, hematocrit is 41.5, and platelet count is normal. D- dimer is 0.67. Arterial blood gases yesterday showed a pO2 of 50, pCO2 45, pH is 7.40. Sodium 142, potassium 4.8, chlorides 107, CO2 28, anion gap 7, BUN 30, creatinine 1.10. LDH is 2858. C-reactive protein is 53.1. Chest x-ray shows bilateral patchy infiltrates, involving also areas of the lung, without change. Objective - Vital Signs Vital signs: Vital Signs Temp 99 F 10/05/20 04:00 Pulse 86 10/05/20 13:00 Resp 31 H 10/05/20 13:00 BP 129/76 10/05/20 13:00 Pulse Ox 87 L 10/05/20 13:00 Intake & Output 10/04/20 10/05/20 10/05/20 18:59 06:59 18:59 Intake Total 120 240 120 Output Total 460 705 300 Balance -340 -465 -180 Weight 138.4 kg Intake: IV 120 240 120 Lactated Ringers 1,000 ml 120 240 120 @ 20 mls/hr IV .Q24H [facility] Rx#:[id number] Oral 0 Output: Urine 460 705 300 Other: Voiding Method Indwelling Catheter Indwelling Catheter Indwelling Catheter - Exam Quite tachypneic. Currently on BiPAP. Mild conversational dyspnea. Saturations 89-90%.. HEENT examination is grossly unremarkable. Neck supple. Full range of motion. No adenopathy thyromegaly or neck vein distention. Cardiovascular examination reveals regular rhythm rate. S1-S2 normal. No S3 or S4. No discernible murmur noted. Heart rate 86 bpm. Heart sounds are distant. Lungs reveal diffuse coarse rhonchi. Bibasilar crackles are noted. Breath sounds equal bilaterally. Exam is unchanged. Abdomen soft bowel sounds are heard. No masses or tenderness. Extremities are intact. No cyanosis clubbing or edema. Skin is without rash or lesion. Neurologic examination is brief but nonfocal. - Labs CBC & Chem 7: 10/05/20 05:15 10/05/20 05:15 Labs: Abnormal Lab Results - Last 24 Hours (Table) 10/05/20 10/05/20 10/05/20 Range/Units 05:15 05:15 05:15 Lymphocytes # 0.8 L (1.0-4.8) k/uL D-Dimer 0.67 H (<0.60) mg/L FEU BUN 30 H (9-20) mg/dL Glucose 133 H (74-99) mg/dL Lactate Dehydrogenase 2858 H (313-618) U/L C-Reactive Protein 53.1 H (<10.0) mg/L Microbiology - Last 24 Hours (Table) 10/02/20 10:35 Blood Culture - Preliminary Blood No Growth after 72 hours 10/02/20 10:20 Blood Culture - Preliminary Blood No Growth after 72 hours Assessment and Plan Assessment: Acute hypoxemic respiratory failure secondary to COVID 19 pneumonitis. Obesity. No significant past medical history. Plan: Plan dated 10/01/2020. The patient's REM was discontinued. We chose to give the patient TOCI. The patient should also get Decadron, Lovenox, vitamin C, vitamin D3, and zinc. The patient is currently in the emergency department. He may need to come up to the intensive care unit. Unfortunately, we do not have any ICU beds. Additional recommendations and suggestions are forthcoming. Prognosis is guarded. We also ordered 1 unit of convalescent plasma. Plan dated 10/04/2020. Because of this increasing oxygen requirements, REM, was discontinued. We did give the patient TOCI. In addition, the patient will get Decadron, Lovenox, vitamin C, vitamin D3, and zinc. The patient was transferred to the intensive care unit for closer monitoring and observation. The patient may end up on the mechanical ventilator. We also ordered 1 unit of convalescent plasma. Additional recommendations and suggestions are forthcoming. Prognosis is very guarded. Plan dated 10/05/2020. The patient did receive TOCI. In addition, the patient is currently on Decadron, Lovenox, vitamin C, vitamin D3, and zinc. We transferred the patient to the intensive care unit for closer monitoring. In the end, he may require intubation and mechanical ventilation. Today we are going to attempt to use AIRVO, so that he might have something to eat. We will continue to follow. We did give him 1 unit of convalescent plasma. Prognosis is guarded. Additional recommendations and suggestions are forthcoming. Time with Patient: Greater than 30
--- NOTE | 2020-10-05 17:17 | P.PN ---
Progress Note - Text Progress Note Date: 10/05/20 History of Present Illness Pleasant 48-year-old male, whose PCP is Dr. Ring, came in with complains of weakness fever he denied any shortness of breath patient but patient is hypoxic and requiring 4 L of oxygen patient denied any significant cough diarrhea. Patient is found to have Covid 19. Patient had a chest x-ray which is showing bilateral interstitial infiltrates. Patient did get a dose of ACTEMRA. ID did start the patient on Remdesivir. Pulmonary did not feel the need for the same. Discontinued. Worsening short of breath. Placed on BiPAP October 04: being moved to the ICU. Today: In the ICU. Short of breath. On BiPAP. 16//100%. Tired. Sinus rhythm. Review of systems: Was done for constitutional, cardiovascular, GI, pulmonary. relevant finding as above Active Medications Acetaminophen (Acetaminophen Tab 325 Mg Tab) 650 mg PO Q6HR PRN PRN Reason: Mild Pain or Fever > 100.5 Last Admin: 10/03/20 18:26 Dose: 650 mg Documented by: Ascorbic Acid (Ascorbic Acid 500 Mg Tab) 500 mg PO BID [facility] Last Admin: 10/05/20 08:55 Dose: 500 mg Documented by: Cholecalciferol (Cholecalciferol 25 Mcg (1000 Iu) Tablet) 125 mcg PO DAILY [facility] Last Admin: 10/05/20 08:55 Dose: 125 mcg Documented by: Dexamethasone Sodium Phosphate (Dexamethasone Sod Phosphate 10 Mg/Ml 1 Ml Vial) 6 mg IV DAILY [facility] Last Admin: 10/05/20 08:56 Dose: 6 mg Documented by: Enoxaparin Sodium (Enoxaparin 40 Mg/0.4 Ml Syringe) 40 mg SQ BID [facility] Last Admin: 10/05/20 08:56 Dose: 40 mg Documented by: Famotidine (Famotidine 20 Mg Tab) 20 mg PO BID [facility] Last Admin: 10/05/20 08:56 Dose: 20 mg Documented by: Lactated Ringer's (Lactated Ringers) 1,000 mls @ 20 mls/hr IV .Q24H [facility] Last Admin: 10/04/20 20:06 Dose: 20 mls/hr Documented by: Lorazepam (Lorazepam 2 Mg/Ml Inj) 1 mg IV Q4HR PRN PRN Reason: Anxiety Last Admin: 10/05/20 09:56 Dose: 1 mg Documented by: Naloxone HCl (Naloxone 0.4 Mg/Ml 1 Ml Vial) 0.2 mg IV Q2M PRN PRN Reason: Opioid Reversal Zinc Sulfate (Zinc Sulfate 220 Mg Cap) 220 mg PO DAILY [facility] Last Admin: 10/05/20 08:56 Dose: 220 mg Documented by: On examination: VITAL SIGNS: Afebrile, 86, 31, 129/76, 87% on 100% BiPAP GENERAL APPEARANCE: , laying in bed, short of breath with BiPAP . RESPIRATORY: Respiratory effort increased. Accessory muscles a working NEUROLOGICAL: No facial asymmetry. Moving all 4 limbs. PSYCHIATRY: Alert and oriented x3. Mood and affect anxious. Rest of the exam as per pulmonary and nursing INVESTIGATIONS, reviewed in the clinical context: October 05: WBC 7 hemoglobin 13.9 d-dimer 0.67 CRP 53.1. Chest [id number] bibasilar. He had a little upper lobe and basilar infiltrates October 04: D-dimer 0.83 ABG: PO2 50 pCO2 45. Potassium 4.4 creatinine 1.07 CRP 81.8 D-dimer 0.82. AB.46, pCO2 34, pO2 128 CRP 65.9 Chest x-ray film personally reviewed by me-bilateral confluent infiltrates Admission labs: Pro-calcitonin 0.86 Coronavirus [PCR]: Detected Creatinine 1.78 Assessment and Plan Covid 19 pneumonia: Not improving -on Decadron, multivitamins, Lovenox.vitamin C, vitamin D, Pepcid, zinc (Remdesivir given 1 dose per ID. Discontinued by pulmonary.), ACTEMRA given Sepsis from COVID 19 pneumonia IV fluids. Follow clinically -Acute severe hypoxic respiratory failure secondary to COVID 19 pneumonia, not improving BiPAP. -100% -Acute renal failure creatinine 1.7 likely ATN.-Improving Continue with IV fluids. Creatinine 1.07 -Morbid obesity BMI 41.8 Follow weight loss diet as an outpatient and follow with PCP -Hyperglycemia secondary to steroids Follow Accu-Cheks Discussed with patient. Remains critically ill. Follow-with core feeder
[2020-10-05] MEDS: KETOROLAC 15 MG/ML 1 ML VIAL IVP PRN (18:30)
[2020-10-05] MEDS: LACTATED RINGERS 1,000 ML IV SCH (21:34)
[2020-10-06 04:59] LABS: Basophils % (A) 0 %; Eosinophils % (A) 0 %; HCT 42.5 % (39.0-53.0); HGB 14.2 gm/dL (13.0-17.5); Lymphocytes # (A) 0.8 k/uL (1.0-4.8); Lymphocytes % (A) 10 %; MCH 30.2 pg (25.0-35.0); MCHC 33.5 g/dL (31.0-37.0); MCV 90.1 fL (80.0-100.0); Mean Platelet Volume 7.5; Monocytes # (A) 0.3 k/uL (0-1.0); Monocytes % (A) 3 %; Neutrophils # (A) 6.7 k/uL (1.3-7.7); Neutrophils % (A) 85 %; Platelet Count 258 k/uL (150-450); RBC 4.71 m/uL (4.30-5.90); RDW 13.2 % (11.5-15.5); WBC 7.9 k/uL (3.8-10.6)
[2020-10-06 05:07] LABS: ALT 35 U/L (4-49); AST 73 U/L (17-59); African American GFR (CKD) >90 (>60 ml/min/1.73 sqM); Albumin 2.7 g/dL (3.5-5.0); Alkaline Phosphatase 68 U/L (38-126); Anion Gap 8 mmol/L; Blood Urea Nitrogen 28 mg/dL (9-20); C Reactive Protein 29.8 mg/L (<10.0); Calcium 8.2 mg/dL (8.4-10.2); Carbon Dioxide 26 mmol/L (22-30); Chloride 106 mmol/L (98-107); Glucose 90 mg/dL (74-99); Non-African American GFR(CKD) >90 (>60 ml/min/1.73 sqM); Potassium 4.3 mmol/L (3.5-5.1); Sodium 140 mmol/L (137-145); Total Bilirubin 0.6 mg/dL (0.2-1.3)
[2020-10-06] MEDS ORDERED: NOREPINEPHRINE 4 MG in SODIUM CHLORIDE 0.9% 250 ML IV SCH (07:45)
[2020-10-06] MEDS: ASCORBIC ACID 500 MG TAB PO SCH ×2 (09:06→20:23)
[2020-10-06] MEDS: CHOLECALCIFEROL 25 MCG (1000 IU) TABLET PO SCH (09:06)
[2020-10-06] MEDS: ZINC SULFATE 220 MG CAP PO SCH (09:07)
[2020-10-06] MEDS: FAMOTIDINE 20 MG TAB PO SCH ×2 (09:07→20:23)
[2020-10-06] MEDS: KETOROLAC 15 MG/ML 1 ML VIAL IVP PRN ×2 (09:07→21:16)
[2020-10-06] MEDS: DEXAMETHASONE SOD PHOSPHATE 10 MG/ML 1 ML VIAL IV SCH (09:07)
[2020-10-06] MEDS: ENOXAPARIN 40 MG/0.4 ML SYRINGE SQ SCH ×2 (09:07→20:23)
--- NOTE | 2020-10-06 11:10 | P.PN ---
Subjective Progress Note Date: 10/06/20 Principal diagnosis: Hypoxemic respiratory failure. 40-year-old male, who has no other past medical history, who comes into the emergency room, with 3-4 days of feeling weak, fever, cough, shortness of breath, and just feeling very fatigued. His apparently recently recovered from "bronchitis". Apparently the patient tested positive for coronavirus. We saw the patient in the emergency department. It was at the request of one of the ER nurses. The patient was on BiPAP with settings of IPAP 16, EPAP 6, and 100%. The patient was getting saline at 100 mL an hour. The patient had been started on REM. Rather than continue that, we chose to give him TOCI. His D-dimer test was 0.82. His blood gases showed a pO2 of 128, pCO2 34, and a pH of 7.46. That was on 100%. His electrolytes look pretty normal. His BUN was 24, creatinine was 1.78. Pro-calcitonin level was 0.86. C-reactive protein was 65.9. The chest x-ray showed diffuse bilateral opacities. Progress note dated 10/04/2020. The patient remains on BiPAP at 100%. His saturations are only in the low to mid 80s. For that reason, the patient will be transferred to the intensive care unit. He is getting saline at KVO. His BiPAP settings included an IPAP of 16, EPAP 6. The patient did receive TOCI. In addition, he received the COVID vitamins, Decadron, and Lovenox. Today's labs include a blood gas showing a pO2 of only 50, pCO2 45, and a pH is 7.40. That was on 100%. D-dimer today is 0. 83. Sodium 143, potassium 4.4, chlorides 108, CO2 27, anion gap 8, BUN 26, and creatinine 1.07. C-reactive protein is 81.8. Chest x-ray continues to show significant bilateral infiltrates. Progress note dated 10/05/2020. 40-year-old male with a history of acute hypoxemic respiratory failure secondary to COVID 19 pneumonitis. Currently, the patient remains on BiPAP with an IPAP of 16, EPAP of 8. FiO2 100%. Patient is getting lactated Ringer's at 20 mL an hour. We going to try him on some AIRVO today so that he can eat. White count is 7, hemoglobin 13.9, hematocrit is 41.5, and platelet count is normal. D- dimer is 0.67. Arterial blood gases yesterday showed a pO2 of 50, pCO2 45, pH is 7.40. Sodium 142, potassium 4.8, chlorides 107, CO2 28, anion gap 7, BUN 30, creatinine 1.10. LDH is 2858. C-reactive protein is 53.1. Chest x-ray shows bilateral patchy infiltrates, involving also areas of the lung, without change. Progress note dated 10/06/2020. We 1-year-old male, with history of acute hypoxemic respiratory failure, secondary to COVID 19 pneumonitis. The patient's currently on BiPAP with settings of IPAP 16, EPAP 8, INR 100%. His saturations are in the mid to high 80s. The patient is getting lactated Ringer's at 50 mL an hour. It was no chest x-ray today. Labs today include a white count 7.9, hemoglobin 14.2, hematocrit 42.5, and platelet count 258,000. D-dimer is 1.06. Sodium 140, potassium, chlorides 106, CO2 26, anion gap 8, BUN 28, and creatinine 0.95. C- reactive protein is down to 29.8 from 53.1. Objective - Vital Signs Vital signs: Vital Signs Temp 99.4 F 10/06/20 08:00 Pulse 76 10/06/20 09:00 Resp 30 H 10/06/20 09:00 BP 136/91 10/06/20 09:00 Pulse Ox 89 L 10/06/20 09:00 Intake & Output 10/05/20 10/06/20 10/06/20 18:59 06:59 18:59 Intake Total 240 720 150 Output Total 860 545 130 Balance -620 175 20 Weight 138.8 kg Intake: IV 240 240 150 Lactated Ringers 1,000 ml 240 240 150 @ 20 mls/hr IV .Q24H [facility] Rx#:[id number] Oral 480 Output: Urine 860 545 130 Other: Voiding Method Indwelling Catheter Indwelling Catheter Indwelling Catheter - Exam Quite tachypneic. Currently on BiPAP. Mild conversational dyspnea. Saturations 89-90%.. HEENT examination is grossly unremarkable. Neck supple. Full range of motion. No adenopathy thyromegaly or neck vein distention. Cardiovascular examination reveals regular rhythm rate. S1-S2 normal. No S3 or S4. No discernible murmur noted. Heart rate 76 bpm. Heart sounds are distant. Lungs reveal diffuse coarse rhonchi. Bibasilar crackles are noted. Breath sounds equal bilaterally. Exam is unchanged. Abdomen soft bowel sounds are heard. No masses or tenderness. Extremities are intact. No cyanosis clubbing or edema. Skin is without rash or lesion. Neurologic examination is brief but nonfocal. - Labs CBC & Chem 7: 10/06/20 03:56 10/06/20 03:56 Labs: Abnormal Lab Results - Last 24 Hours (Table) 10/06/20 10/06/20 10/06/20 Range/Units 03:56 03:56 03:56 Lymphocytes # 0.8 L (1.0-4.8) k/uL D-Dimer 1.06 H (<0.60) mg/L FEU BUN 28 H (9-20) mg/dL Calcium 8.2 L (8.4-10.2) mg/dL AST 73 H (17-59) U/L C-Reactive Protein 29.8 H (<10.0) mg/L Total Protein 5.0 L (6.3-8.2) g/dL Albumin 2.7 L (3.5-5.0) g/dL Microbiology - Last 24 Hours (Table) 10/02/20 10:35 Blood Culture - Preliminary Blood No Growth after 72 hours 10/02/20 10:20 Blood Culture - Preliminary Blood No Growth after 72 hours Assessment and Plan Assessment: Acute hypoxemic respiratory failure secondary to COVID 19 pneumonitis. Obesity. No significant past medical history. Plan: Plan dated 10/01/2020. The patient's REM was discontinued. We chose to give the patient TOCI. The patient should also get Decadron, Lovenox, vitamin C, vitamin D3, and zinc. The patient is currently in the emergency department. He may need to come up to the intensive care unit. Unfortunately, we do not have any ICU beds. Additional recommendations and suggestions are forthcoming. Prognosis is guarded. We also ordered 1 unit of convalescent plasma. Plan dated 10/04/2020. Because of this increasing oxygen requirements, REM, was discontinued. We did give the patient TOCI. In addition, the patient will get Decadron, Lovenox, vitamin C, vitamin D3, and zinc. The patient was transferred to the intensive care unit for closer monitoring and observation. The patient may end up on the mechanical ventilator. We also ordered 1 unit of convalescent plasma. Additional recommendations and suggestions are forthcoming. Prognosis is very guarded. Plan dated 10/05/2020. The patient did receive TOCI. In addition, the patient is currently on Dec adron, Lovenox, vitamin C, vitamin D3, and zinc. We transferred the patient to the intensive care unit for closer monitoring. In the end, he may require intubation and mechanical ventilation. Today we are going to attempt to use AIRVO, so that he might have something to eat. We will continue to follow. We did give him 1 unit of convalescent plasma. Prognosis is guarded. Additional recommendations and suggestions are forthcoming Plan dated 10/06/2020. Currently, the patient is doing about the same. He is currently on Decadron, Lovenox, vitamin C, vitamin D3, and zinc. The patient is trying to avoid intubation and mechanical ventilation. The patient did receive TOCI. The patient did not have a chest x-ray today. We will continue to watch the patient very carefully. He did get 1 unit of convalescent plasma. Prognosis is guarded. The patient in the end, may require intubation and mechanical ventilation.. Time with Patient: Greater than 30
[2020-10-06 12:53] LABS: Phosphorus 3.5 mg/dL (2.5-4.5)
[2020-10-06] MEDS: ALPRAZolam 0.25 MG TAB PO PRN ×2 (18:52→22:17)
[2020-10-06] MEDS: LACTATED RINGERS 1,000 ML IV SCH ×2 (20:25→20:30)
--- NOTE | 2020-10-06 21:21 | P.PN ---
Progress Note - Text Progress Note Date: 10/06/20 History of Present Illness Pleasant 48-year-old male, whose PCP is Dr. Ring, came in with complains of weakness fever he denied any shortness of breath patient but patient is hypoxic and requiring 4 L of oxygen patient denied any significant cough diarrhea. Patient is found to have Covid 19. Patient had a chest x-ray which is showing bilateral interstitial infiltrates. Patient did get a dose of ACTEMRA. ID did start the patient on Remdesivir. Pulmonary did not feel the need for the same. Discontinued. Worsening short of breath. Placed on BiPAP October 04: being moved to the ICU. Today: ICU. Short of breath. On BiPAP. 16//100%. Tired. Sinus rhythm. Awake Review of systems: Attempted for constitutional, cardiovascular, GI, pulmonary. relevant finding as above Active Medications Acetaminophen (Acetaminophen Tab 325 Mg Tab) 650 mg PO Q6HR PRN PRN Reason: Mild Pain or Fever > 100.5 Last Admin: 10/03/20 18:26 Dose: 650 mg Documented by: Alprazolam (Alprazolam 0.25 Mg Tab) 0.25 mg PO QID PRN PRN Reason: Anxiety Last Admin: 10/06/20 18:52 Dose: 0.25 mg Documented by: Ascorbic Acid (Ascorbic Acid 500 Mg Tab) 500 mg PO BID [facility] Last Admin: 10/06/20 20:23 Dose: 500 mg Documented by: Cholecalciferol (Cholecalciferol 25 Mcg (1000 Iu) Tablet) 125 mcg PO DAILY [facility] Last Admin: 10/06/20 09:06 Dose: 125 mcg Documented by: Dexamethasone Sodium Phosphate (Dexamethasone Sod Phosphate 10 Mg/Ml 1 Ml Vial) 6 mg IV DAILY [facility] Last Admin: 10/06/20 09:07 Dose: 6 mg Documented by: Enoxaparin Sodium (Enoxaparin 40 Mg/0.4 Ml Syringe) 40 mg SQ BID [facility] Last Admin: 10/06/20 20:23 Dose: 40 mg Documented by: Famotidine (Famotidine 20 Mg Tab) 20 mg PO BID [facility] Last Admin: 10/06/20 20:23 Dose: 20 mg Documented by: Lactated Ringer's (Lactated Ringers) 1,000 mls @ 20 mls/hr IV .Q24H [facility] Last Admin: 10/06/20 20:25 Dose: 20 mls/hr Documented by: Ketorolac Tromethamine (Ketorolac 15 Mg/Ml 1 Ml Vial) 15 mg IVP Q6HR PRN PRN Reason: Pain Stop: 10/08/20 18:04 Last Admin: 10/06/20 09:07 Dose: 15 mg Documented by: Naloxone HCl (Naloxone 0.4 Mg/Ml 1 Ml Vial) 0.2 mg IV Q2M PRN PRN Reason: Opioid Reversal Zinc Sulfate (Zinc Sulfate 220 Mg Cap) 220 mg PO DAILY [facility] Last Admin: 10/06/20 09:07 Dose: 220 mg Documented by: On examination: VITAL SIGNS: 99.5, 86, 24, 150/95, 88% on BiPAP 100% GENERAL APPEARANCE: , laying in bed, short of breath with BiPAP . Diet awake RESPIRATORY: Respiratory effort increased. Accessory muscles a working NEUROLOGICAL: No facial asymmetry. Moving all 4 limbs. PSYCHIATRY: Tired on since some questions. Mood and affect anxious. Rest of the exam as per pulmonary and nursing INVESTIGATIONS, reviewed in the clinical context: October 06: WBC 7.9 hemoglobin 14.2 platelets 258 d-dimer 1.06 potassium 4.3 creatinine 0.95 October 05: WBC 7 hemoglobin 13.9 d-dimer 0.67 CRP 53.1. Chest c-nog-lybfqo bibasilar. He had a little upper lobe and basilar infiltrates October 04: D-dimer 0.83 ABG: PO2 50 pCO2 45. Potassium 4.4 creatinine 1.07 CRP 81.8 D-dimer 0.82. AB.46, pCO2 34, pO2 128 CRP 65.9 Chest x-ray film personally reviewed by nv-bilateral confluent infiltrates Admission labs: Pro-calcitonin 0.86 Coronavirus [PCR]: Detected Creatinine 1.78 Assessment and Plan Covid 19 pneumonia: Not improving -on Decadron, multivitamins, Lovenox.vitamin C, vitamin D, Pepcid, zinc (Remdesivir given 1 dose per ID. Discontinued by pulmonary.), ACTEMRA given Sepsis from COVID 19 pneumonia IV fluids. Follow clinically -Acute severe hypoxic respiratory failure secondary to COVID 19 pneumonia, not improving BiPAP. -100% -Acute renal failure creatinine 1.7 likely ATN.-Corrected Continue with IV fluids. Creatinine 0.95 -Morbid obesity BMI 41.8 Follow weight loss diet as an outpatient and follow with PCP -Hyperglycemia secondary to steroids Follow Accu-Cheks -Hypoalbuminemia Acute phase reactant -Acute hypoxic metabolic encephalopathy Oxygen supplementation Discussed with patient. Remains critically ill. 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
[2020-10-07 04:13] LABS: D-Dimer 3.71 mg/L FEU (<0.60); Prothrombin Time 10.7 sec (9.0-12.0)
[2020-10-07 04:57] LABS: Ionized Calcium 4.8 mg/dL (4.5-5.3)
[2020-10-07] MEDS: KETOROLAC 15 MG/ML 1 ML VIAL IVP PRN (05:18)
[2020-10-07 05:44] LABS: African American GFR (CKD) >90 (>60 ml/min/1.73 sqM); Anion Gap 6 mmol/L; Blood Urea Nitrogen 32 mg/dL (9-20); Calcium 8.5 mg/dL (8.4-10.2); Carbon Dioxide 29 mmol/L (22-30); Chloride 108 mmol/L (98-107); Glucose 96 mg/dL (74-99); Magnesium 2.4 mg/dL (1.6-2.3); Non-African American GFR(CKD) 83 (>60 ml/min/1.73 sqM); Phosphorus 4.6 mg/dL (2.5-4.5); Potassium 4.1 mmol/L (3.5-5.1); Sodium 143 mmol/L (137-145)
[2020-10-07 05:49] LABS: LDH 3190 U/L (313-618)
[2020-10-07] MEDS: CHOLECALCIFEROL 25 MCG (1000 IU) TABLET PO SCH (09:25)
[2020-10-07] MEDS: DEXAMETHASONE SOD PHOSPHATE 10 MG/ML 1 ML VIAL IV SCH (09:26)
[2020-10-07] MEDS: ENOXAPARIN 40 MG/0.4 ML SYRINGE SQ SCH (09:26)
[2020-10-07] MEDS: ASCORBIC ACID 500 MG TAB PO SCH ×2 (09:26→21:00)
[2020-10-07] MEDS: FAMOTIDINE 20 MG TAB PO SCH ×2 (09:26→21:00)
[2020-10-07] MEDS: ZINC SULFATE 220 MG CAP PO SCH (09:26)
[2020-10-07] MEDS ORDERED: LIDOCAINE 1% INJ 10MG/ML (20 ML MDV) ONE (09:43)
--- NOTE | 2020-10-07 10:09 | XR ---
EXAMINATION TYPE: XR chest 1V portable DATE OF EXAM: 10/07/2020 Comparison: 10/05/2020 Clinical History: 40-year-old male covid/PNA Findings: Heart mildly enlarged. Diffuse interstitial and patchy opacities bilaterally. Aeration shows some imp rovement from prior. No pleural effusion. Impression: Improving aeration but with residual diffuse interstitial and patchy infiltrates.
[2020-10-07] MEDS ORDERED: LIDOCAINE 1% INJ 10MG/ML (20 ML MDV) SQ ONE (10:16)
--- NOTE | 2020-10-07 11:21 | XR ---
EXAMINATION TYPE: XR chest 1V portable DATE OF EXAM: 10/07/2020 Comparison: 10/07/2020, earlier today Clinical History: 40-year-old male PICC LINE Findings: Low lung volumes. Heart mildly enlarged. Diffuse interstitial changes. Some patchy density in the per iphery of the lower lung slightly increased. Right PICC tip at the lower SVC level. Impression: 1. Right PICC tip at the lower SVC level. 2. Mild cardiomegaly and continued diffuse interstitial opacities. 3. Developing patchy airspace disease versus pulmonary edema in the periphery of the lower lungs.
--- NOTE | 2020-10-07 11:41 | P.PN ---
Subjective Progress Note Date: 10/07/20 Principal diagnosis: Hypoxemic respiratory failure. 40-year-old male, who has no other past medical history, who comes into the emergency room, with 3-4 days of feeling weak, fever, cough, shortness of breath, and just feeling very fatigued. His apparently recently recovered from "bronchitis". Apparently the patient tested positive for coronavirus. We saw the patient in the emergency department. It was at the request of one of the ER nurses. The patient was on BiPAP with settings of IPAP 16, EPAP 6, and 100%. The patient was getting saline at 100 mL an hour. The patient had been started on REM. Rather than continue that, we chose to give him TOCI. His D-dimer test was 0.82. His blood gases showed a pO2 of 128, pCO2 34, and a pH of 7.46. That was on 100%. His electrolytes look pretty normal. His BUN was 24, creatinine was 1.78. Pro-calcitonin level was 0.86. C-reactive protein was 65.9. The chest x-ray showed diffuse bilateral opacities. Progress note dated 10/04/2020. The patient remains on BiPAP at 100%. His saturations are only in the low to mid 80s. For that reason, the patient will be transferred to the intensive care unit. He is getting saline at KVO. His BiPAP settings included an IPAP of 16, EPAP 6. The patient did receive TOCI. In addition, he received the COVID vitamins, Decadron, and Lovenox. Today's labs include a blood gas showing a pO2 of only 50, pCO2 45, and a pH is 7.40. That was on 100%. D-dimer today is 0. 83. Sodium 143, potassium 4.4, chlorides 108, CO2 27, anion gap 8, BUN 26, and creatinine 1.07. C-reactive protein is 81.8. Chest x-ray continues to show significant bilateral infiltrates. Progress note dated 10/05/2020. 40-year-old male with a history of acute hypoxemic respiratory failure secondary to COVID 19 pneumonitis. Currently, the patient remains on BiPAP with an IPAP of 16, EPAP of 8. FiO2 100%. Patient is getting lactated Ringer's at 20 mL an hour. We going to try him on some AIRVO today so that he can eat. White count is 7, hemoglobin 13.9, hematocrit is 41.5, and platelet count is normal. D- dimer is 0.67. Arterial blood gases yesterday showed a pO2 of 50, pCO2 45, pH is 7.40. Sodium 142, potassium 4.8, chlorides 107, CO2 28, anion gap 7, BUN 30, creatinine 1.10. LDH is 2858. C-reactive protein is 53.1. Chest x-ray shows bilateral patchy infiltrates, involving also areas of the lung, without change. Progress note dated 10/06/2020. We 1-year-old male, with history of acute hypoxemic respiratory failure, secondary to COVID 19 pneumonitis. The patient's currently on BiPAP with settings of IPAP 16, EPAP 8, INR 100%. His saturations are in the mid to high 80s. The patient is getting lactated Ringer's at 50 mL an hour. It was no chest x-ray today. Labs today include a white count 7.9, hemoglobin 14.2, hematocrit 42.5, and platelet count 258,000. D-dimer is 1.06. Sodium 140, potassium, chlorides 106, CO2 26, anion gap 8, BUN 28, and creatinine 0.95. C- reactive protein is down to 29.8 from 53.1. Progress note dated 10/07/2020. 40-year-old male with a history of acute hypoxemic respiratory failure secondary to COVID 19 pneumonitis. Currently, the patient is on BiPAP, at 16/8 and 100%. The patient is getting lactated Ringer's at 50 mL an hour. His saturations are only about 88%. The patient is trying to hold off from intubation and me chanical ventilation, as we've asked him multiple times. PT 10.7, INR 1, d- dimer 3.71, sodium 143, potassium 4.1, chlorides 108, CO2 29, anion gap 6, BUN 32, and creatinine 1.10. LDH is 3190. C-reactive protein is 19. Chest x-ray shows patchy airspace disease. Objective - Vital Signs Vital signs: Vital Signs Temp 99.0 F 10/07/20 08:00 Pulse 80 10/07/20 10:00 Resp 35 H 10/07/20 10:00 BP 146/87 04/09/21 10:00 Pulse Ox 85 L 10/07/20 10:00 Intake & Output 10/06/20 10/07/20 10/07/20 18:59 06:59 18:59 Intake Total 600 550 100 Output Total 660 705 165 Balance -60 -155 -65 Weight 138.8 kg 136.5 kg 136.5 kg Intake: IV 600 550 100 Lactated Ringers 1,000 ml 600 550 100 @ 50 mls/hr IV .Q20H [facility] Rx#:[id number] Output: Urine 660 705 165 Other: Voiding Method Indwelling Catheter Indwelling Catheter - Exam Quite tachypneic. Currently on BiPAP. Mild conversational dyspnea. Saturations 85-90%.. HEENT examination is grossly unremarkable. Neck supple. Full range of motion. No adenopathy thyromegaly or neck vein distention. Cardiovascular examination reveals regular rhythm rate. S1-S2 normal. No S3 or S4. No discernible murmur noted. Heart rate 80 bpm. Heart sounds are distant. Lungs reveal diffuse coarse rhonchi. Bibasilar crackles are noted. Breath sounds equal bilaterally. Exam is unchanged. Abdomen soft bowel sounds are heard. No masses or tenderness. Extremities are intact. No cyanosis clubbing or edema. Skin is without rash or lesion. Neurologic examination is brief but nonfocal. - Labs CBC & Chem 7: 10/06/20 03:56 10/07/20 03:45 Labs: Abnormal Lab Results - Last 24 Hours (Table) 10/06/20 10/07/20 10/07/20 Range/Units 03:56 03:45 03:45 D-Dimer 3.71 H (<0.60) mg/L FEU Chloride 108 H (98-107) mmol/L BUN 32 H (9-20) mg/dL Phosphorus 4.6 H (2.5-4.5) mg/dL Magnesium 2.4 H (1.6-2.3) mg/dL Lactate Dehydrogenase 3190 H (313-618) U/L C-Reactive Protein 19.0 H (<10.0) mg/L Triglycerides 329 H (<150) mg/dL Microbiology - Last 24 Hours (Table) 10/02/20 10:35 Blood Culture - Preliminary Blood No Growth after 96 hours 10/02/20 10:20 Blood Culture - Preliminary Blood No Growth after 96 hours Assessment and Plan Assessment: Acute hypoxemic respiratory failure secondary to COVID 19 pneumonitis. Obesity. No significant past medical history. Plan: Plan dated 10/01/2020. The patient's REM was discontinued. We chose to give the patient TOCI. The patient should also get Decadron, Lovenox, vitamin C, vitamin D3, and zinc. The patient is currently in the emergency department. He may need to come up to the intensive care unit. Unfortunately, we do not have any ICU beds. Additional re commendations and suggestions are forthcoming. Prognosis is guarded. We also ordered 1 unit of convalescent plasma. Plan dated 10/04/2020. Because of this increasing oxygen requirements, REM, was discontinued. We did give the patient TOCI. In addition, the patient will get Decadron, Lovenox, v itamin C, vitamin D3, and zinc. The patient was transferred to the intensive care unit for closer monitoring and observation. The patient may end up on the mechanical ventilator. We also ordered 1 unit of convalescent plasma. Additional recommendations and suggestions are forthcoming. Prognosis is very guarded. Plan dated 10/05/2020. The patient did receive TOCI. In addition, the patient is currently on Decadron, Lovenox, vitamin C, vitamin D3, and zinc. We transferred the patient to the intensive care unit for closer monitoring. In the end, he may require intubation and mechanical ventilation. Today we are going to attempt to use AIRVO, so that he might have something to eat. We will continue to follow. We did give him 1 unit of convalescent plasma. Prognosis is guarded. Additional recommendations and suggestions are forthcoming Plan dated 10/06/2020. Currently, the patient is doing about the same. He is currently on Decadron, Lovenox, vitamin C, vitamin D3, and zinc. The patient is trying to avoid intubation and mechanical ventilation. The patient did receive TOCI. The patient did not have a chest x-ray today. We will continue to watch the patient very carefully. He did get 1 unit of convalescent plasma. Prognosis is guarded. The patient in the end, may require intubation and mechanical ventilation.. Plan dated 10/07/2020. Currently, the patient's doing about the same. He remains on Decadron, Lovenox, vitamin C, vitamin D3, and zinc. The patient is hoping to avoid intubation and mechanical ventilation. The patient did receive TOCI and he did get convalescent plasma. His overall prognosis remains guarded. We will continue to follow the patient closely. In the end, the patient may end up on the mechanical ventilator. Again, he is hoping not to. Time with Patient: Greater than 30
--- NOTE | 2020-10-07 13:22 | IR ---
PICC LINE PLACEMENT: HISTORY: Infection requiring long-term antibiotic therapy PROCEDURE: Ultrasound guidance of PICC line placement. ADAPTIVE PHYSICAL EDUCATION SPECIALIST: Dr. Mendiola. COMPLICATIONS: None ANESTHESIA: 1. 1% Lidocaine locally. FINDINGS/TECHNIQUE: The procedure was explained to the patient. The risks, complications, benefits and alternatives were discussed and any questions were answered. Informed consent was obtained. The patient was placed supine on the fluoroscopic table and prepped and draped in the usual sterile fas ion. Utilizing a 21 gauge needle and sonographic guidance, access in the left basilic vein was achi eved and there is placement of a 0.018 guidewire. The vein is patent. A 5-F. sheath was placed over the guidewire. The guidewire and dilator were removed and a 5-F. Double lumen PICC line was placed through the sheath with the chest x-ray confirming the tip at the level of the SVC. The sheath was r emoved, the catheter was flushed and sutured into position. The patient was stable throughout the pr ocedure and remained stable upon discharge from the Department of Radiology. The vein puncture was patent under ultrasound. A mccormick scale image was obtained to document patency of the vein punctured. All elements of the maximal barrier technique were utilized. IMPRESSION: 1. Successful PICC line placement under ultrasound performed bedside within the ICU.
[2020-10-07] MEDS ORDERED: FAT EMULSION 20% 250 ML in EMPTY BAG 1 BAG IV SCH (15:00)
[2020-10-07] MEDS ORDERED: MVI, ADULT NO.4 WITH VIT K 10 ML, TRACE (CONC-1ML/DOSE) 1 ML in AMINO ACID 5%-D20W+LYTE... IV SCH ×3 (15:00)
[2020-10-07] MEDS: ALPRAZolam 0.25 MG TAB PO PRN (16:06)
--- NOTE | 2020-10-07 18:20 | P.PN ---
Progress Note - Text Progress Note Date: 10/07/20 History of Present Illness Pleasant 48-year-old male, whose PCP is Dr. Ring, came in with complains of weakness fever he denied any shortness of breath patient but patient is hypoxic and requiring 4 L of oxygen patient denied any significant cough diarrhea. Patient is found to have Covid 19. Patient had a chest x-ray which is showing bilateral interstitial infiltrates. Patient did get a dose of ACTEMRA. ID did start the patient on Remdesivir. Pulmonary did not feel the need for the same. Discontinued. Worsening short of breath. Placed on BiPAP October 04: being moved to the ICU. Today: ICU. Short of breath. On BiPAP. 16//100%. Sitting up reclining in bed. Tired. Communicating. Barely eating. Started on TPN and lipids Review of systems: Attempted for constitutional, cardiovascular, GI, pulmonary. relevant finding as above Active Medications Acetaminophen (Acetaminophen Tab 325 Mg Tab) 650 mg PO Q6HR PRN PRN Reason: Mild Pain or Fever > 100.5 Last Admin: 10/03/20 18:26 Dose: 650 mg Documented by: Alprazolam (Alprazolam 0.25 Mg Tab) 0.25 mg PO QID PRN PRN Reason: Anxiety Last Admin: 10/07/20 16:06 Dose: 0.25 mg Documented by: Ascorbic Acid (Ascorbic Acid 500 Mg Tab) 500 mg PO BID [facility] Last Admin: 10/07/20 09:26 Dose: 500 mg Documented by: Cholecalciferol (Cholecalciferol 25 Mcg (1000 Iu) Tablet) 125 mcg PO DAILY [facility] Last Admin: 10/07/20 09:25 Dose: 125 mcg Documented by: Dexamethasone Sodium Phosphate (Dexamethasone Sod Phosphate 10 Mg/Ml 1 Ml Vial) 6 mg IV DAILY [facility] Last Admin: 10/07/20 09:26 Dose: 6 mg Documented by: Enoxaparin Sodium (Enoxaparin 40 Mg/0.4 Ml Syringe) 40 mg SQ BID [facility] Last Admin: 10/07/20 09:26 Dose: 40 mg Documented by: Famotidine (Famotidine 20 Mg Tab) 20 mg PO BID [facility] Last Admin: 10/07/20 09:26 Dose: 20 mg Documented by: Lactated Ringer's (Lactated Ringers) 1,000 mls @ 50 mls/hr IV .Q20H [facility] Last Admin: 10/06/20 20:30 Dose: 50 mls/hr Documented by: Parenteral Vitamin Supplement 10 ml/ Zinc/Copper/Manganese/Selenium 1 ml/ Amino Ac/Electrol/Dextrose/Calcium 1,011 mls @ 30 mls/hr IV .Q24H [facility] Stop: 10/08/20 13:00 Last Admin: 10/07/20 15:20 Dose: 30 mls/hr Documented by: Parenteral Vitamin Supplement 10 ml/ Zinc/Copper/Manganese/Selenium 1 ml/ Amino Ac/Electrol/Dextrose/Calcium 1,011 mls @ 90 mls/hr IV .BY DURATION [facility] Amino Ac/Electrol/Dextrose/Calcium (Clinimix E 5%-20% Solution) 1,000 mls @ 90 mls/hr IV .BY DURATION [facility] Fat Emulsion Intravenous 250 (ml/ IV Solution) 250 mls @ 21 mls/hr IV [id number] [facility] Last Admin: 10/07/20 15:20 Dose: 21 mls/hr Documented by: Ketorolac Tromethamine (Ketorolac 15 Mg/Ml 1 Ml Vial) 15 mg IVP Q6HR PRN PRN Reason: Pain Stop: 10/08/20 18:04 Last Admin: 10/07/20 05:18 Dose: 15 mg Documented by: Naloxone HCl (Naloxone 0.4 Mg/Ml 1 Ml Vial) 0.2 mg IV Q2M PRN PRN Reason: Opioid Reversal Zinc Sulfate (Zinc Sulfate 220 Mg Cap) 220 mg PO DAILY [facility] Last Admin: 10/07/20 09:26 Dose: 220 mg Documented by: On examination: VITAL SIGNS: 85, 28, 143/87, 86% on BiPAP 100% GENERAL APPEARANCE: , Sitting up in bed, short of breath with BiPAP . Tired RESPIRATORY: Respiratory effort increased. Accessory muscles a working NEUROLOGICAL: No facial asymmetry. Moving all 4 limbs. PSYCHIATRY: Tired on since some questions. Mood and affect anxious. Rest of the exam as per pulmonary and nursing INVESTIGATIONS, reviewed in the clinical context: October 07: D-dimer 3.71 potassium 4.1 creatinine 1.10 October 06: WBC 7.9 hemoglobin 14.2 platelets 258 d-dimer 1.06 potassium 4.3 creatinine 0.95 October 05: WBC 7 hemoglobin 13.9 d-dimer 0.67 CRP 53.1. Chest z-xur-phxosl bibasi lar. He had a little upper lobe and basilar infiltrates October 04: D-dimer 0.83 ABG: PO2 50 pCO2 45. Potassium 4.4 creatinine 1.07 CRP 81.8 D-dimer 0.82. AB.46, pCO2 34, pO2 128 CRP 65.9 Chest x-ray film personally reviewed by me-bilateral confluent infiltrates Admission labs: Pro-calcitonin 0.86 Coronavirus [PCR]: Detected Creatinine 1.78 Assessment and Plan Covid 19 pneumonia: Not improving -on Decadron, multivitamins, Lovenox.vitamin C, vitamin D, Pepcid, zinc (Remdesivir given 1 dose per ID. Discontinued by pulmonary.), ACTEMRA given Sepsis from COVID 19 pneumonia IV fluids. Follow clinically -Acute severe hypoxic respiratory failure secondary to COVID 19 pneumonia, not improving BiPAP. -100% -Acute renal failure creatinine 1.7 likely ATN.-Corrected Continue with IV fluids. Creatinine 0.95 -Morbid obesity BMI 41.8 Follow weight loss diet as an outpatient and follow with PCP -Hyperglycemia secondary to steroids Follow Accu-Cheks -Hypoalbuminemia Acute phase reactant -Acute hypoxic metabolic encephalopathy-slow to respond Oxygen supplementation Given increasing d-dimer above 3. We'll switch to therapeutic dose of Lovenox. Given the prothrombotic nature of COVID 19 and increasing hypoxia on 100% BiPAP
[2020-10-07] MEDS: LACTATED RINGERS 1,000 ML IV SCH (19:36)
[2020-10-07] MEDS: ENOXAPARIN 120 MG/0.8 ML SYRINGE SQ SCH (21:00)
[2020-10-08] MEDS: KETOROLAC 15 MG/ML 1 ML VIAL IVP PRN (02:05)
[2020-10-08] MEDS: ALPRAZolam 0.25 MG TAB PO PRN (04:24)
[2020-10-08] MEDS: ACETAMINOPHEN TAB 325 MG TAB PO PRN (04:24)
[2020-10-08] MEDS ORDERED: ACETAMINOPHEN IV (For NPO) 1,000 MG in EMPTY BAG 1 BAG IVPB PRN (04:38)
[2020-10-08 05:18] LABS: ALT 121 U/L (4-49); AST 141 U/L (17-59); African American GFR (CKD) >90 (>60 ml/min/1.73 sqM); Albumin 3.2 g/dL (3.5-5.0); Alkaline Phosphatase 122 U/L (38-126); Anion Gap 4 mmol/L; Blood Urea Nitrogen 26 mg/dL (9-20); Calcium 8.3 mg/dL (8.4-10.2); Carbon Dioxide 27 mmol/L (22-30); Chloride 105 mmol/L (98-107); Glucose 129 mg/dL (74-99); Magnesium 2.3 mg/dL (1.6-2.3); Non-African American GFR(CKD) >90 (>60 ml/min/1.73 sqM); Phosphorus 3.9 mg/dL (2.5-4.5); Potassium 4.1 mmol/L (3.5-5.1); Sodium 136 mmol/L (137-145); Total Bilirubin 0.9 mg/dL (0.2-1.3); Total Protein 5.8 g/dL (6.3-8.2)
[2020-10-08] MEDS: FAMOTIDINE 20 MG TAB PO SCH ×2 (08:49→20:00)
[2020-10-08] MEDS: CHOLECALCIFEROL 25 MCG (1000 IU) TABLET PO SCH (08:49)
[2020-10-08] MEDS: DEXAMETHASONE SOD PHOSPHATE 10 MG/ML 1 ML VIAL IV SCH (08:49)
[2020-10-08] MEDS: ZINC SULFATE 220 MG CAP PO SCH (08:49)
[2020-10-08] MEDS: ASCORBIC ACID 500 MG TAB PO SCH ×2 (08:49→20:00)
[2020-10-08] MEDS: ENOXAPARIN 120 MG/0.8 ML SYRINGE SQ SCH ×2 (08:51→20:00)
--- NOTE | 2020-10-08 12:05 | P.PN ---
Subjective Progress Note Date: 10/08/20 Principal diagnosis: Hypoxemic respiratory failure. 40-year-old male, who has no other past medical history, who comes into the emergency room, with 3-4 days of feeling weak, fever, cough, shortness of breath, and just feeling very fatigued. His apparently recently recovered from "bronchitis". Apparently the patient tested positive for coronavirus. We saw the patient in the emergency department. It was at the request of one of the ER nurses. The patient was on BiPAP with settings of IPAP 16, EPAP 6, and 100%. The patient was getting saline at 100 mL an hour. The patient had been started on REM. Rather than continue that, we chose to give him TOCI. His D-dimer test was 0.82. His blood gases showed a pO2 of 128, pCO2 34, and a pH of 7.46. That was on 100%. His electrolytes look pretty normal. His BUN was 24, creatinine was 1.78. Pro-calcitonin level was 0.86. C-reactive protein was 65.9. The chest x-ray showed diffuse bilateral opacities. Progress note dated 10/04/2020. The patient remains on BiPAP at 100%. His saturations are only in the low to mid 80s. For that reason, the patient will be transferred to the intensive care unit. He is getting saline at KVO. His BiPAP settings included an IPAP of 16, EPAP 6. The patient did receive TOCI. In addition, he received the COVID vitamins, Decadron, and Lovenox. Today's labs include a blood gas showing a pO2 of only 50, pCO2 45, and a pH is 7.40. That was on 100%. D-dimer today is 0. 83. Sodium 143, potassium 4.4, chlorides 108, CO2 27, anion gap 8, BUN 26, and creatinine 1.07. C-reactive protein is 81.8. Chest x-ray continues to show significant bilateral infiltrates. Progress note dated 10/05/2020. 40-year-old male with a history of acute hypoxemic respiratory failure secondary to COVID 19 pneumonitis. Currently, the patient remains on BiPAP with an IPAP of 16, EPAP of 8. FiO2 100%. Patient is getting lactated Ringer's at 20 mL an hour. We going to try him on some AIRVO today so that he can eat. White count is 7, hemoglobin 13.9, hematocrit is 41.5, and platelet count is normal. D- dimer is 0.67. Arterial blood gases yesterday showed a pO2 of 50, pCO2 45, pH is 7.40. Sodium 142, potassium 4.8, chlorides 107, CO2 28, anion gap 7, BUN 30, creatinine 1.10. LDH is 2858. C-reactive protein is 53.1. Chest x-ray shows bilateral patchy infiltrates, involving also areas of the lung, without change. Progress note dated 10/06/2020. We 1-year-old male, with history of acute hypoxemic respiratory failure, secondary to COVID 19 pneumonitis. The patient's currently on BiPAP with settings of IPAP 16, EPAP 8, INR 100%. His saturations are in the mid to high 80s. The patient is getting lactated Ringer's at 50 mL an hour. It was no chest x-ray today. Labs today include a white count 7.9, hemoglobin 14.2, hematocrit 42.5, and platelet count 258,000. D-dimer is 1.06. Sodium 140, potassium, chlorides 106, CO2 26, anion gap 8, BUN 28, and creatinine 0.95. C- reactive protein is down to 29.8 from 53.1. Progress note dated 10/07/2020. 40-year-old male with a history of acute hypoxemic respiratory failure secondary to COVID 19 pneumonitis. Currently, the patient is on BiPAP, at 16/8 and 100%. The patient is getting lactated Ringer's at 50 mL an hour. His saturations are only about 88%. The patient is trying to hold off from intubation and me chanical ventilation, as we've asked him multiple times. PT 10.7, INR 1, d- dimer 3.71, sodium 143, potassium 4.1, chlorides 108, CO2 29, anion gap 6, BUN 32, and creatinine 1.10. LDH is 3190. C-reactive protein is 19. Chest x-ray shows patchy airspace disease. Progress note dated 10/08/2020. 40-year-old male with a history of acute hypoxemic respiratory failure. Currently, the patient remains on BiPAP at 16/8, and 100%. He is also getting TPN via a PICC line, and saline at 50 mL an hour. The patient will have a chest x-ray, done tomorrow morning, and a d-dimer as well. Currently, the patient is doing about the same. From today, sodium 136, potassium 4.1, chlorides 105, CO2 27, anion gap 4, BUN 26, and creatinine 0.92. AST was 141, ALT was 121. Triglycerides are 329. No chest x-ray was done today. We have offered the patient intubation and mechanical ventilation, but he would like to try to stay off the ventilator if possible. Objective - Vital Signs Vital signs: Vital Signs Temp 99.5 F 10/08/20 08:00 Pulse 79 10/08/20 10:00 Resp 22 10/08/20 10:00 BP 122/78 10/08/20 10:00 Pulse Ox 85 L 10/08/20 10:00 Intake & Output 10/07/20 10/08/20 10/08/20 18:59 06:59 18:59 Intake Total 600 600 210 Output Total 940 950 120 Balance -340 -350 90 Weight 136.5 kg Intake: IV 600 600 210 Lactated Ringers 1,000 ml 600 600 150 @ 50 mls/hr IV .Q20H [facility] Rx#:[id number] Mvi, Adult No.4 with Vit 60 K 10 ml Trace (Conc-1Ml/ Dose) 1 ml In Amino Acid 5%-D20w+Lytes*E* 1,000 ml @ 30 mls/hr IV .Q24H [facility] Rx#:[id number] Output: Urine 940 950 120 Other: Voiding Method Indwelling Catheter Indwelling Catheter - Exam Quite tachypneic. Currently on BiPAP. Mild conversational dyspnea. Saturations 85-90%.. HEENT examination is grossly unremarkable. Neck supple. Full range of motion. No adenopathy thyromegaly or neck vein distention. Cardiovascular examination reveals regular rhythm rate. S1-S2 normal. No S3 or S4. No discernible murmur noted. Heart rate 79 bpm. Heart sounds are distant. Lungs reveal diffuse coarse rhonchi. Bibasilar crackles are noted. Breath sounds equal bilaterally. Abdomen soft bowel sounds are heard. No masses or tenderness. Extremities are intact. No cyanosis clubbing or edema. Skin is without rash or lesion. Neurologic examination is brief but nonfocal. - Labs CBC & Chem 7: 10/06/20 03:56 10/08/20 04:37 Labs: Abnormal Lab Results - Last 24 Hours (Table) 10/08/20 Range/Units 04:37 Sodium 136 L (137-145) mmol/L BUN 26 H (9-20) mg/dL Glucose 129 H (74-99) mg/dL Calcium 8.3 L (8.4-10.2) mg/dL AST 141 H (17-59) U/L ALT 121 H (4-49) U/L Total Protein 5.8 L (6.3-8.2) g/dL Albumin 3.2 L (3.5-5.0) g/dL Microbiology - Last 24 Hours (Table) 10/02/20 10:35 Blood Culture - Preliminary Blood No Growth after 120 hours 10/02/20 10:20 Blood Culture - Preliminary Blood No Growth after 120 hours Assessment and Plan Assessment: Acute hypoxemic respiratory failure secondary to COVID 19 pneumonitis. Obesity. No significant past medical history. Plan: Plan dated 10/01/2020. The patient's REM was discontinued. We chose to give the patient TOCI. The patient should also get Decadron, Lovenox, vitamin C, vitamin D3, and zinc. The patient is currently in the emergency department. He may need to come up to the intensive care unit. Unfortunately, we do not have any ICU beds. Additional recommendations and suggestions are forthcoming. Prognosis is guarded. We also ordered 1 unit of convalescent plasma. Plan dated 10/04/2020. Because of this increasing oxygen requirements, REM, was discontinued. We did give the patient TOCI. In addition, the patient will get Decadron, Lovenox, vitamin C, vitamin D3, and zinc. The patient was transferred to the intensive care unit for closer monitoring and observation. The patient may end up on the mechanical ventilator. We also ordered 1 unit of convalescent plasma. Additional recommendations and suggestions are forthcoming. Prognosis is very guarded. Plan dated 10/05/2020. The patient did receive TOCI. In addition, the patient is currently on Decadron, Lovenox, vitamin C, vitamin D3, and zinc. We transferred the patient to the intensive care unit for closer monitoring. In the end, he may require intubation and mechanical ventilation. Today we are going to attempt to use AIRVO, so that he might have something to eat. We will continue to follow. We did give him 1 unit of convalescent plasma. Prognosis is guarded. Additional recommendations and suggestions are forthcoming Plan dated 10/06/2020. Currently, the patient is doing about the same. He is currently on Decadron, Lovenox, vitamin C, vitamin D3, and zinc. The patient is trying to avoid intubation and mechanical ventilation. The patient did receive TOCI. The patient did not have a chest x-ray today. We will continue to watch the patient very carefully. He did get 1 unit of convalescent plasma. Prognosis is guarded. The patient in the end, may require intubation and mechanical ventilation.. Plan dated 10/07/2020. Currently, the patient's doing about the same. He remains on Decadron, Lovenox, vitamin C, vitamin D3, and zinc. The patient is hoping to avoid intubation and mechanical ventilation. The patient did receive TOCI and he did get convalescent plasma. His overall prognosis remains guarded. We will continue to follow the patient closely. In the end, the patient may end up on the mechanical ventilator. Again, he is hoping not to. Plan dated 10/08/2020. The patient will have a chest x-ray done and a d-dimer done tomorrow. The patient remains on BiPAP, settings of IPAP 16, EPAP 8, and 100%. His saturations are running in the mid 80s or so. He is on TPN at 30 mL an hour, and saline at 50 mL an hour. Again, we did offer him intubation and mechanical ventilation, but he did not want it at this time. The patient did receive convalescent plasma, and TOCI. Prognosis is guarded. We will continue to follow the patient closely. Additional recommendations and suggestions are forthcoming. Time with Patient: Greater than 30
[2020-10-08] MEDS: LACTATED RINGERS 1,000 ML IV SCH (15:14)
[2020-10-08] MEDS: 1: MVI, ADULT NO.4 WITH VIT K 10 ML, TRACE (CONC-1ML/DOSE) 1 ML in AMINO ACID 5%-D20W+LY IV SCH ×3 (16:24)
--- NOTE | 2020-10-08 21:38 | P.PN ---
Progress Note - Text Progress Note Date: 10/08/20 History of Present Illness Pleasant 48-year-old male, whose PCP is Dr. Ring, came in with complains of weakness fever he denied any shortness of breath patient but patient is hypoxic and requiring 4 L of oxygen patient denied any significant cough diarrhea. Patient is found to have Covid 19. Patient had a chest x-ray which is showing bilateral interstitial infiltrates. Patient did get a dose of ACTEMRA. ID did start the patient on Remdesivir. Pulmonary did not feel the need for the same. Discontinued. Worsening short of breath. Placed on BiPAP October 04: being moved to the ICU. Today: ICU. Short of breath. On BiPAP. 16//100%. Sitting up reclining in bed. Tired. Communicating. Barely eating. TPN and lipids. Telemetry-sinus rhythm Review of systems: Attempted for constitutional, cardiovascular, GI, pulmonary. relevant finding as above Active Medications Acetaminophen (Acetaminophen Tab 325 Mg Tab) 650 mg PO Q6HR PRN PRN Reason: Mild Pain or Fever > 100.5 Last Admin: 10/03/20 18:26 Dose: 650 mg Documented by: Alprazolam (Alprazolam 0.25 Mg Tab) 0.25 mg PO QID PRN PRN Reason: Anxiety Last Admin: 10/07/20 16:06 Dose: 0.25 mg Documented by: Ascorbic Acid (Ascorbic Acid 500 Mg Tab) 500 mg PO BID [facility] Last Admin: 10/08/20 20:00 Dose: 500 mg Documented by: Cholecalciferol (Cholecalciferol 25 Mcg (1000 Iu) Tablet) 125 mcg PO DAILY [facility] Last Admin: 10/08/20 08:49 Dose: 125 mcg Documented by: Dexamethasone Sodium Phosphate (Dexamethasone Sod Phosphate 10 Mg/Ml 1 Ml Vial) 6 mg IV DAILY [facility] Last Admin: 10/08/20 08:49 Dose: 6 mg Documented by: Enoxaparin Sodium (Enoxaparin 120 Mg/0.8 Ml Syringe) 120 mg SQ Q12HR [facility] Last Admin: 10/08/20 20:00 Dose: 120 mg Documented by: Famotidine (Famotidine 20 Mg Tab) 20 mg PO BID [facility] Last Admin: 10/08/20 20:00 Dose: 20 mg Documented by: Lactated Ringer's (Lactated Ringers) 1,000 mls @ 50 mls/hr IV .Q20H [facility] Last Admin: 10/08/20 15:14 Dose: 50 mls/hr Documented by: Parenteral Vitamin Supplement 10 ml/ Zinc/Copper/Manganese/Selenium 1 ml/ Amino Ac/Electrol/Dextrose/Calcium 1,011 mls @ 90 mls/hr IV .BY DURATION [facility] Last Admin: 10/08/20 16:24 Dose: 90 mls/hr Documented by: Amino Ac/Electrol/Dextrose/Calcium (Clinimix E 5%-20% Solution) 1,000 mls @ 90 mls/hr IV .BY DURATION [facility] Fat Emulsion Intravenous 250 (ml/ IV Solution) 250 mls @ 21 mls/hr IV [id number]@0900 [facility] Last Admin: 10/07/20 15:20 Dose: 21 mls/hr Documented by: Acetaminophen 1,000 mg/ IV (Solution) 100 mls @ 400 mls/hr IVPB Q6HR PRN PRN Reason: Fever and/ or Pain Stop: 10/09/20 00:14 Last Admin: 10/08/20 05:00 Dose: 400 mls/hr Documented by: Dexmedetomidine HCl 400 mcg/ (IV Solution) 100 mls @ 0 mls/hr IV .Q0M [facility]; Protocol Stop: 10/09/20 21:00 Naloxone HCl (Naloxone 0.4 Mg/Ml 1 Ml Vial) 0.2 mg IV Q2M PRN PRN Reason: Opioid Reversal Zinc Sulfate (Zinc Sulfate 220 Mg Cap) 220 mg PO DAILY [facility] Last Admin: 10/08/20 08:49 Dose: 220 mg Documented by: On examination: VITAL SIGNS: 98.8, 87, 31, 130 76, 83% on 100% BiPAP GENERAL APPEARANCE: , Sitting up in bed, short of breath with BiPAP . Tired RESPIRATORY: Respiratory effort increased. Accessory muscles a working NEUROLOGICAL: No facial asymmetry. Moving all 4 limbs following commands. PSYCHIATRY:. Mood and affect anxious. Rest of the exam as per pulmonary and nursing INVESTIGATIONS, reviewed in the clinical context: October 08: Potassium 4.1 October 07: D-dimer 3.71 potassium 4.1 creatinine 1.10 October 06: WBC 7.9 hemoglobin 14.2 platelets 258 d-dimer 1.06 potassium 4.3 creatinine 0.95 October 05: WBC 7 hemoglobin 13.9 d-dimer 0.67 CRP 53.1. Chest d-lub-zijjpu bibasilar. He had a little upper lobe and basilar infiltrates October 04: D-dimer 0.83 ABG: PO2 50 pCO2 45. Potassium 4.4 creatinine 1.07 CRP 81.8 D-dimer 0.82. AB.46, pCO2 34, pO2 128 CRP 65.9 Chest x-ray film personally reviewed by me-bilateral confluent infiltrates Admission labs: Pro-calcitonin 0.86 Coronavirus [PCR]: Detected Creatinine 1.78 Assessment and Plan Covid 19 pneumonia: Not improving -on Decadron, multivitamins, Lovenox.vitamin C, vitamin D, Pepcid, zinc (Remdesivir given 1 dose per ID. Discontinued by pulmonary.), ACTEMRA given Sepsis from COVID 19 pneumonia IV fluids. Follow clinically -Acute severe hypoxic respiratory failure secondary to COVID 19 pneumonia, not improving BiPAP. -100% -Acute renal failure creatinine 1.7 likely ATN.-Corrected Continue with IV fluids. Creatinine 0.95 -Morbid obesity BMI 41.8 Follow weight loss diet as an outpatient and follow with PCP -Hyperglycemia secondary to steroids Follow Accu-Cheks -Hypoalbuminemia Acute phase reactant -Acute hypoxic metabolic encephalopathy-slow to respond Oxygen supplementation Prognosis guarded. 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
[2020-10-08] MEDS: DEXMEDETOMIDINE/0.9% NACL(PMX) 400 MCG in EMPTY BAG 1 BAG IV SCH (21:51)
[2020-10-09] MEDS ORDERED: ACETAMINOPHEN IV (For NPO) 1,000 MG in EMPTY BAG 1 BAG IVPB PRN (00:17)
[2020-10-09] MEDS: 1: MVI, ADULT NO.4 WITH VIT K 10 ML, TRACE (CONC-1ML/DOSE) 1 ML in AMINO ACID 5%-D20W+LY IV SCH ×6 (03:41→14:21)
[2020-10-09] MEDS: LACTATED RINGERS 1,000 ML IV SCH (03:43)
[2020-10-09] MEDS: DEXMEDETOMIDINE/0.9% NACL(PMX) 400 MCG in EMPTY BAG 1 BAG IV SCH ×2 (04:11→09:02)
[2020-10-09 04:52] LABS: Basophils # (A) 0.1 k/uL (0-0.2); Basophils % (A) 0 %; Eosinophils # (A) 0.3 k/uL (0-0.7); Eosinophils % (A) 2 %; Lymphocytes # (A) 0.9 k/uL (1.0-4.8); Lymphocytes % (A) 8 %; MCH 29.1 pg (25.0-35.0); Mean Platelet Volume 7.3; Monocytes # (A) 0.3 k/uL (0-1.0); Monocytes % (A) 2 %; Neutrophils # (A) 10.3 k/uL (1.3-7.7); Neutrophils % (A) 87 %; Platelet Count 192 k/uL (150-450); RBC 5.17 m/uL (4.30-5.90); RDW 13.8 % (11.5-15.5); WBC 11.9 k/uL (3.8-10.6)
[2020-10-09 05:11] LABS: African American GFR (CKD) >90 (>60 ml/min/1.73 sqM); Anion Gap 7 mmol/L; Blood Urea Nitrogen 25 mg/dL (9-20); C Reactive Protein 12.4 mg/L (<10.0); Calcium 8.3 mg/dL (8.4-10.2); Carbon Dioxide 25 mmol/L (22-30); Chloride 105 mmol/L (98-107); Glucose 190 mg/dL (74-99); Magnesium 2.3 mg/dL (1.6-2.3); Non-African American GFR(CKD) >90 (>60 ml/min/1.73 sqM); Phosphorus 3.8 mg/dL (2.5-4.5); Potassium 4.4 mmol/L (3.5-5.1); Sodium 137 mmol/L (137-145)
[2020-10-09] MEDS: ASCORBIC ACID 500 MG TAB PO SCH ×2 (09:09→20:04)
[2020-10-09] MEDS: FAMOTIDINE 20 MG TAB PO SCH ×2 (09:09→20:04)
[2020-10-09] MEDS: CHOLECALCIFEROL 25 MCG (1000 IU) TABLET PO SCH (09:09)
[2020-10-09] MEDS: ZINC SULFATE 220 MG CAP PO SCH (09:10)
--- NOTE | 2020-10-09 10:34 | XR ---
EXAMINATION TYPE: XR chest 1V portable DATE OF EXAM: 10/09/2020 COMPARISON: 10/07/2020 INDICATION: Covid pneumonia TECHNIQUE: Single frontal view of the chest is obtained. FINDINGS: The heart size is normal. The pulmonary vasculature is normal. Diffuse infiltrate is present throughout the bilateral lung dyer. Findings are worsening over the i nterval. PIC line enters on the right with the tip in the superior vena cava region. IMPRESSION: 1. Worsening bilateral lung infiltrates
[2020-10-09] MEDS ORDERED: propofoL 100 ML IV ONE (10:45)
[2020-10-09] MEDS ORDERED: MORPHINE SULFATE 2 MG/ML SYRINGE ONE (10:48)
[2020-10-09] MEDS ORDERED: ROCURONIUM 10 MG/ML (5 ML VIAL) IV ONE (11:00)
[2020-10-09] MEDS ORDERED: PROPOFOL 10 MG/ML 20 ML VIAL IV ONE (11:00)
[2020-10-09] MEDS ORDERED: SUCCINYLCHOLINE CHLORIDE VIAL 200 MG/10 ML VIAL IV ONE (11:00)
[2020-10-09] MEDS ORDERED: NOREPINEPHRIN 4 MG-0.9% NS PMX 4 MG/250 ML ML IV ONE ×2 (11:19→16:48)
[2020-10-09 11:36] LABS: ABG Base Excess -8.6 mmol/L; ABG HCO3 21 mmol/L (21-25); ABG Oxygen Saturation 27.1 % (94-97); ABG PCO2 67 mmHg (35-45); ABG TCO2 23 mmol/L (19-24)
[2020-10-09 11:37] LABS: ABG PH 7.11 (7.35-7.45); ABG PO2 27 mmHg (83-108)
[2020-10-09] MEDS: CISATRACURIUM 200 MG in SODIUM CHLORIDE 0.9% 180 ML IV SCH ×2 (12:00→18:30)
--- NOTE | 2020-10-09 12:14 | PCN ---
PROCEDURE NOTE PROCEDURE PERFORMED: Right radial arterial line. PREOP DIAGNOSIS: Frequent blood draws and blood gas monitoring. POSTOP DIAGNOSIS: Frequent blood draws and blood gas monitoring. OPERATORS: Dr. Rodriguez Valdivia. ARTERIAL LINE PLACEMENT: Indications: Hemodynamic monitoring. A time-out was completed verifying correct patient, procedure, site, positioning, and implant(s) or special equipment if applicable. Isael's test was performed to ensure adequate perfusion. The patient's right wrist was prepped and draped in sterile fashion. 1% Lidocaine was used to anesthetize the area. An 18G Arrow arterial line was introduced into the right radial artery. The catheter was threaded over the guide wire and the needle was removed with appropriate pulsatile blood return. Blood loss was minimal. The catheter was then sutured in place to the skin and a sterile dressing applied. Perfusion to the extremity distal to the point of catheter insertion was checked and found to be adequate. The patient tolerated the procedure well and there were no complications. Was informed consent and universal time-out. We used the right radial artery. There was no immediate complication. The catheter was sutured in place. Sterile dressing was applied by the nurse. The patient tolerated the procedure well. MMODL / IJN: [id number] /
--- NOTE | 2020-10-09 12:17 | PCN ---
PROCEDURE NOTE PROCEDURE: Left subclavian triple-lumen catheter. PREOP DIAGNOSIS: Administration of fluids and pressors. POSTOP DIAGNOSIS: Administration of fluids and pressors. OPERATORS: Dr. Frias and Dr. Valdivia. TRIPLE LUMEN CATHETER PLACEMENT: Indication: Hemodynamic monitoring/Intravenous access. A time-out was completed verifying correct patient, procedure, site, positioning, and implant(s) or special equipment if applicable. The patient was placed in a dependent position appropriate for triple lumen catheter placement based on the vein to be cannulated. The patient's left shoulder was prepped and draped in sterile fashion. 1% Lidocaine was used to anesthetize the surrounding skin area. A triple lumen 9F Cordis catheter was introduced into the left subclavian vein using Seldinger technique. The catheter was threaded smoothly over the guide wire and appropriate blood return was obtained. Each lumen of the catheter was evacuated of air and flushed with sterile saline. The catheter was then sutured in place to the skin and a sterile dressing applied. Perfusion to the extremity distal to the point of catheter insertion was checked and found to be adequate. There was informed consent and universal timeout. There was no immediate complication. There was good blood return from all 3 ports. The catheter was sutured in place. A sterile dressing was applied by the nurse. The x-ray was ordered. The tip of the catheter was noted to be in the right atrium. MMODL / IJN: [id number] /
--- NOTE | 2020-10-09 12:21 | XR ---
EXAMINATION TYPE: XR chest 1V portable DATE OF EXAM: 10/09/2020 COMPARISON: 10/09/2020 INDICATION: Line and tube placement TECHNIQUE: Single frontal view of the chest is obtained. FINDINGS: The heart size is normal. The pulmonary vasculature is indistinct. There is diffuse groundglass opacities in the bilateral lung dyer. Air bronchograms are present. Fi ndings are worsening over the interval. There is placement of an endotracheal tuber with tip 2.5 cm above the twin. Nasogastric transverse thorax. Left central venous catheter tip is in the superior vena cava region. No pneumothorax is evid ent. Right-sided PICC line with the tip in superior vena cava region is stable. IMPRESSION: 1. Worsening bilateral lung opacities. 2. Multiple lines and catheters discussed above.
[2020-10-09 13:14] LABS: ABG HCO3 23 mmol/L (21-25); ABG Oxygen Saturation 71.5 % (94-97); ABG PCO2 69 mmHg (35-45); ABG TCO2 25 mmol/L (19-24)
[2020-10-09 13:15] LABS: ABG PH 7.13 (7.35-7.45)
--- NOTE | 2020-10-09 13:15 | P.PN ---
Subjective Progress Note Date: 10/09/20 Principal diagnosis: Hypoxemic respiratory failure. 40-year-old male, who has no other past medical history, who comes into the emergency room, with 3-4 days of feeling weak, fever, cough, shortness of breath, and just feeling very fatigued. His apparently recently recovered from "bronchitis". Apparently the patient tested positive for coronavirus. We saw the patient in the emergency department. It was at the request of one of the ER nurses. The patient was on BiPAP with settings of IPAP 16, EPAP 6, and 100%. The patient was getting saline at 100 mL an hour. The patient had been started on REM. Rather than continue that, we chose to give him TOCI. His D-dimer test was 0.82. His blood gases showed a pO2 of 128, pCO2 34, and a pH of 7.46. That was on 100%. His electrolytes look pretty normal. His BUN was 24, creatinine was 1.78. Pro-calcitonin level was 0.86. C-reactive protein was 65.9. The chest x-ray showed diffuse bilateral opacities. Progress note dated 10/04/2020. The patient remains on BiPAP at 100%. His saturations are only in the low to mid 80s. For that reason, the patient will be transferred to the intensive care unit. He is getting saline at KVO. His BiPAP settings included an IPAP of 16, EPAP 6. The patient did receive TOCI. In addition, he received the COVID vitamins, Decadron, and Lovenox. Today's labs include a blood gas showing a pO2 of only 50, pCO2 45, and a pH is 7.40. That was on 100%. D-dimer today is 0. 83. Sodium 143, potassium 4.4, chlorides 108, CO2 27, anion gap 8, BUN 26, and creatinine 1.07. C-reactive protein is 81.8. Chest x-ray continues to show significant bilateral infiltrates. Progress note dated 10/05/2020. 40-year-old male with a history of acute hypoxemic respiratory failure secondary to COVID 19 pneumonitis. Currently, the patient remains on BiPAP with an IPAP of 16, EPAP of 8. FiO2 100%. Patient is getting lactated Ringer's at 20 mL an hour. We going to try him on some AIRVO today so that he can eat. White count is 7, hemoglobin 13.9, hematocrit is 41.5, and platelet count is normal. D- dimer is 0.67. Arterial blood gases yesterday showed a pO2 of 50, pCO2 45, pH is 7.40. Sodium 142, potassium 4.8, chlorides 107, CO2 28, anion gap 7, BUN 30, creatinine 1.10. LDH is 2858. C-reactive protein is 53.1. Chest x-ray shows bilateral patchy infiltrates, involving also areas of the lung, without change. Progress note dated 10/06/2020. We 1-year-old male, with history of acute hypoxemic respiratory failure, secondary to COVID 19 pneumonitis. The patient's currently on BiPAP with settings of IPAP 16, EPAP 8, INR 100%. His saturations are in the mid to high 80s. The patient is getting lactated Ringer's at 50 mL an hour. It was no chest x-ray today. Labs today include a white count 7.9, hemoglobin 14.2, hematocrit 42.5, and platelet count 258,000. D-dimer is 1.06. Sodium 140, potassium, chlorides 106, CO2 26, anion gap 8, BUN 28, and creatinine 0.95. C- reactive protein is down to 29.8 from 53.1. Progress note dated 10/07/2020. 40-year-old male with a history of acute hypoxemic respiratory failure secondary to COVID 19 pneumonitis. Currently, the patient is on BiPAP, at 16/8 and 100%. The patient is getting lactated Ringer's at 50 mL an hour. His saturations are only about 88%. The patient is trying to hold off from intubation and me chanical ventilation, as we've asked him multiple times. PT 10.7, INR 1, d- dimer 3.71, sodium 143, potassium 4.1, chlorides 108, CO2 29, anion gap 6, BUN 32, and creatinine 1.10. LDH is 3190. C-reactive protein is 19. Chest x-ray shows patchy airspace disease. Progress note dated 10/08/2020. 40-year-old male with a history of acute hypoxemic respiratory failure. Currently, the patient remains on BiPAP at 16/8, and 100%. He is also getting TPN via a PICC line, and saline at 50 mL an hour. The patient will have a chest x-ray, done tomorrow morning, and a d-dimer as well. Currently, the patient is doing about the same. From today, sodium 136, potassium 4.1, chlorides 105, CO2 27, anion gap 4, BUN 26, and creatinine 0.92. AST was 141, ALT was 121. Triglycerides are 329. No chest x-ray was done today. We have offered the patient intubation and mechanical ventilation, but he would like to try to stay off the ventilator if possible. Progress note dated 10/09/2020. 40-year-old male, with history of acute hypoxemic respiratory failure, secondary to COVID 19. We saw the patient this morning, he was on BiPAP, 16/8, and 100%. Mostly, his saturations are just in the low to mid 80s. He was also receiving lactated Ringer's at 50 mL an hour, TPN at 90 mL an hour with lipids, and dexmedetomidine at 0.7 mcg/kg/h. I went into the room to speak to the patient. It was clear to me, that he had enough, he was very short of breath, and did agree to intubation and mechanical ventilation. I did call and speak to his , and brother. They had a number of questions, and I answered all of them for them as best as I could. Anesthesia was called and he was intubated and placed on mechanical ventilator. In addition, we placed a central line, and an arterial line in this patient. The patient was placed on 100% oxygen, PEEP was increased to 20, rate was 30, and tidal volume was 450. Gases are pending. White count is 11.9, hemoglobin 15, hematocrit 47.0, and platelet count 192,000. A dime or was 15.2. PO2 was 27, pCO2 was 67, and pH 7.11. Changes were made. Sodium 137, potassium 4.4, chlorides 105, CO2 25, anion gap 7, BUN 25, and creatinine 0.88. C-reactive protein is 12.4. Chest x-ray reveals diffuse bilateral infiltrates. Endotracheal tube is about half centimeters above the tracheal twin. I will have them pull it back 1 cm. Objective - Vital Signs Vital signs: Vital Signs Temp 99.1 F 10/09/20 04:00 Pulse 66 10/09/20 05:00 Resp 35 H 10/09/20 05:00 BP 127/88 10/09/20 05:00 Pulse Ox 79 L 10/09/20 07:41 Intake & Output 10/08/20 10/09/20 10/09/20 18:59 06:59 18:59 Intake Total 1110 1799.400 190.113 Output Total 595 505 30 Balance 515 1294.400 160.113 Weight 134.4 kg Intake: IV 1110 1680 140 Lactated Ringers 1,000 ml 600 600 50 @ 50 mls/hr IV .Q20H [facility] Rx#:[id number] Mvi, Adult No.4 with Vit 240 K 10 ml Trace (Conc-1Ml/ Dose) 1 ml In Amino Acid 5%-D20w+Lytes*E* 1,000 ml @ 30 mls/hr IV .Q24H [facility] Rx#:[id number] Mvi, Adult No.4 with Vit 270 1080 90 K 10 ml Trace (Conc-1Ml/ Dose) 1 ml In Amino Acid 5%-D20w+Lytes*E* 1,000 ml @ 90 mls/hr IV .BY DURATION [facility] Rx#: [id number] Intake, IV Titration 119.400 50.113 Amount Dexmedetomidine/0.9% NaCl 119.400 50.113 (Pmx) 400 mcg In Empty Bag 1 bag @ Titrate IV . Q0M [facility] Rx#:[id number] Output: Urine 595 505 30 Other: Voiding Method Indwelling Catheter Indwelling Catheter - Exam Quite tachypneic. Currently on BiPAP. Mild conversational dyspnea. Sa turations mid to low 80s. The patient was seen and evaluated, prior to him being intubated. HEENT examination is grossly unremarkable. Neck supple. Full range of motion. No adenopathy thyromegaly or neck vein distention. Cardiovascular examination reveals regular rhythm rate. S1-S2 normal. No S3 or S4. No discernible murmur noted. Heart rate 66 bpm. Heart sounds are distant. Lungs reveal diffuse coarse rhonchi. Bibasilar crackles are noted. Breath sounds equal bilaterally. Abdomen soft bowel sounds are heard. No masses or tenderness. Extremities are intact. No cyanosis clubbing or edema. Skin is without rash or lesion. Neurologic examination is brief but nonfocal. - Labs CBC & Chem 7: 10/09/20 04:30 10/09/20 04:30 Labs: Abnormal Lab Results - Last 24 Hours (Table) 10/09/20 10/09/20 10/09/20 Range/Units 04:30 04:30 04:30 WBC 11.9 H (3.8-10.6) k/uL Neutrophils # 10.3 H (1.3-7.7) k/uL Lymphocytes # 0.9 L (1.0-4.8) k/uL D-Dimer 15.20 H (<0.60) mg/L FEU ABG pH (7.35-7.45) ABG pCO2 (35-45) mmHg ABG pO2 (83-108) mmHg ABG O2 Saturation (94-97) % BUN 25 H (9-20) mg/dL Glucose 190 H (74-99) mg/dL Calcium 8.3 L (8.4-10.2) mg/dL C-Reactive Protein 12.4 H (<10.0) mg/L 10/09/20 Range/Units 11:33 WBC (3.8-10.6) k/uL Neutrophils # (1.3-7.7) k/uL Lymphocytes # (1.0-4.8) k/uL D-Dimer (<0.60) mg/L FEU ABG pH 7.11 L* (7.35-7.45) ABG pCO2 67 H (35-45) mmHg ABG pO2 27 L* (83-108) mmHg ABG O2 Saturation 27.1 L (94-97) % BUN (9-20) mg/dL Glucose (74-99) mg/dL Calcium (8.4-10.2) mg/dL C-Reactive Protein (<10.0) mg/L Microbiology - Last 24 Hours (Table) 10/02/20 10:35 Blood Culture - Final Blood No Growth after 144 hours 10/02/20 10:20 Blood Culture - Final Blood No Growth after 144 hours Assessment and Plan Assessment: Acute hypoxemic respiratory failure secondary to COVID 19 pneumonitis, status post intubation and mechanical ventilation on 10/09/2020. Obesity. No significant past medical history. Plan: Plan dated 10/01/2020. The patient's REM was discontinued. We chose to give the patient TOCI. The patient should also get Decadron, Lovenox, vitamin C, vitamin D3, and zinc. The patient is currently in the emergency department. He may need to come up to the intensive care unit. Unfortunately, we do not have any ICU beds. Additional recommendations and suggestions are forthcoming. Prognosis is guarded. We also ordered 1 unit of convalescent plasma. Plan dated 10/04/2020. Because of this increasing oxygen requirements, REM, was discontinued. We did give the patient TOCI. In addition, the patient will get Decadron, Lovenox, vitamin C, vitamin D3, and zinc. The patient was transferred to the intensive care unit for closer monitoring and observation. The patient may end up on the mechanical ventilator. We also ordered 1 unit of convalescent plasma. Additional recommendations and suggestions are forthcoming. Prognosis is very guarded. Plan dated 10/05/2020. The patient did receive TOCI. In addition, the patient is currently on Decadron, Lovenox, vitamin C, vitamin D3, and zinc. We transferred the patient to the intensive care unit for closer monitoring. In the end, he may require intubation and mechanical ventilation. Today we are going to attempt to use AIRVO, so that he might have something to eat. We will continue to follow. We did give him 1 unit of convalescent plasma. Prognosis is guarded. Additional recommendations and suggestions are forthcoming Plan dated 10/06/2020. Currently, the patient is doing about the same. He is currently on Decadron, Lovenox, vitamin C, vitamin D3, and zinc. The patient is trying to avoid intubation and mechanical ventilation. The patient did receive TOCI. The patient did not have a chest x-ray today. We will continue to watch the patient very carefully. He did get 1 unit of convalescent plasma. Prognosis is guarded. The patient in the end, may require intubation and mechanical ventilation.. Plan dated 10/07/2020. Currently, the patient's doing about the same. He remains on Decadron, Lovenox, vitamin C, vitamin D3, and zinc. The patient is hoping to avoid intubation and mechanical ventilation. The patient did receive TOCI and he did get convalescent plasma. His overall prognosis remains guarded. We will continue to follow the patient closely. In the end, the patient may end up on the mechanical ventilator. Again, he is hoping not to. Plan dated 10/08/2020. The patient will have a chest x-ray done and a d-dimer done tomorrow. The patient remains on BiPAP, settings of IPAP 16, EPAP 8, and 100%. His saturations are running in the mid 80s or so. He is on TPN at 30 mL an hour, and saline at 50 mL an hour. Again, we did offer him intubation and mechanical ventilation, but he did not want it at this time. The patient did receive convalescent plasma, and TOCI. Prognosis is guarded. We will continue to follow the patient closely. Additional recommendations and suggestions are forthcoming. Plan dated 10/09/2020. The patient was intubated and mechanically ventilated on October 09. I had a long conversation with him, as well as his , and brother. Previously, he was on BiPAP. His saturations were not improving. He was starting to fatigue. We will DC the TPN and start him on enteral nutrition. In addition, the patient's labs and x-rays and medications are all reviewed. Prognosis is guarded. We will attempt to prone him today. Additional recommendations and suggestions are forthcoming. The patient did receive convalescent plasma, and TOCI. A central line was placed as was an arterial line. Time with Patient: Greater than 30
[2020-10-09 13:16] LABS: ABG PO2 52 mmHg (83-108)
[2020-10-09] MEDS: fentaNYL (PF) 1,000 MCG in SODIUM CHLORIDE 0.9% 80 ML IV SCH ×3 (14:00→20:49)
[2020-10-09] MEDS: ENOXAPARIN 120 MG/0.8 ML SYRINGE SQ SCH (14:52)
[2020-10-09] MEDS: DEXAMETHASONE SOD PHOSPHATE 10 MG/ML 1 ML VIAL IV SCH (14:52)
[2020-10-09] MEDS: ARTIFICIAL TEARS OINTMENT 3.5 GM TUBE BOTH EYES SCH ×4 (15:00→23:12)
[2020-10-09 15:30] LABS: ABG Base Excess -4.2 mmol/L; ABG HCO3 24 mmol/L (21-25); ABG Oxygen Saturation 86.8 % (94-97); ABG PCO2 63 mmHg (35-45); ABG PO2 66 mmHg (83-108); ABG TCO2 26 mmol/L (19-24)
[2020-10-09 15:33] LABS: ABG PH 7.19 (7.35-7.45)
[2020-10-09] MEDS: methylPREDNISolone SOD SUCCI 125 MG/2 ML VIAL IV SCH ×2 (17:53→23:10)
--- NOTE | 2020-10-09 18:05 | P.PN ---
Progress Note - Text Progress Note Date: 10/09/20 Presenting complaint Short of breath History of Present Illness Pleasant 48-year-old male, whose PCP is Dr. Ring, came in with complains of weakness fever he denied any shortness of breath patient but patient is hypoxic and requiring 4 L of oxygen patient denied any significant cough diarrhea. Patient is found to have Covid 19. Patient had a chest x-ray which is showing bilateral interstitial infiltrates. Patient did get a dose of ACTEMRA. ID did start the patient on Remdesivir. Pulmonary did not feel the need for the same. Discontinued. Worsening short of breath. Placed on BiPAP October 04: being moved to the ICU. Today: A year intubated. Currently on propofol, Nimbex, fentanyl. Ventilator: FiO2 100 and a PEEP of 20. Telemetry: Sinus rhythm. Patient is in prone position Review of systems: Patient intubated Active Medications Acetaminophen (Acetaminophen Tab 325 Mg Tab) 650 mg PO Q6HR PRN PRN Reason: Mild Pain or Fever > 100.5 Last Admin: 10/03/20 18:26 Dose: 650 mg Documented by: Ascorbic Acid (Ascorbic Acid 500 Mg Tab) 500 mg PO BID [facility] Last Admin: 10/09/20 09:09 Dose: Not Given Documented by: Chlorhexidine Gluconate (Chlorhexidine Gluconate 15 Ml Cup) 15 ml MUCOUS MEM BID [facility] Cholecalciferol (Cholecalciferol 25 Mcg (1000 Iu) Tablet) 125 mcg PO DAILY [facility] Last Admin: 10/09/20 09:09 Dose: Not Given Documented by: Enoxaparin Sodium (Enoxaparin 60 Mg/0.6 Ml Syringe) 60 mg SQ Q12HR [facility] Famotidine (Famotidine 20 Mg Tab) 20 mg PO BID [facility] Last Admin: 10/09/20 09:09 Dose: Not Given Documented by: Lactated Ringer's (Lactated Ringers) 1,000 mls @ 50 mls/hr IV .Q20H [facility] Last Admin: 10/09/20 03:43 Dose: 50 mls/hr Documented by: Parenteral Vitamin Supplement 10 ml/ Zinc/Copper/Manganese/Selenium 1 ml/ Amino Ac/Electrol/Dextrose/Calcium 1,011 mls @ 90 mls/hr IV .BY DURATION [facility] Last Admin: 10/09/20 14:21 Dose: Not Given Documented by: Amino Ac/Electrol/Dextrose/Calcium (Clinimix E 5%-20% Solution) 1,000 mls @ 90 mls/hr IV .BY DURATION [facility] Last Admin: 10/09/20 03:41 Dose: 90 mls/hr Documented by: Cisatracurium Besylate 200 mg/ (Sodium Chloride) 200 mls @ 8.064 mls/hr IV .Q24H [facility]; Protocol Last Admin: 10/09/20 12:00 Dose: 1 mcg/kg/min, 8.064 mls/hr Documented by: Propofol 1,000 mg/ IV Solution 100 mls @ 0 mls/hr IV .Q0M [facility]; Protocol Last Admin: 10/09/20 17:03 Dose: 75 mcg/kg/min, 60.48 mls/hr Documented by: Fentanyl Citrate 1,000 mcg/ (Sodium Chloride) 100 mls @ 0 mls/hr IV .Q0M [facility]; Protocol Last Admin: 10/09/20 17:50 Dose: 0.2 mcg/hr, 0.02 mls/hr Documented by: Methylprednisolone Sodium Succinate (Methylprednisolone Sod Succi 125 Mg/2 Ml Vial) 60 mg IV Q6HR [facility] Last Admin: 10/09/20 17:53 Dose: 60 mg Documented by: Multi-Ingred Cream/Lotion/Oil/Oint (Artificial Tears Ointment 3.5 Gm Tube) 1 applic BOTH EYES Q4HR [facility] Last Admin: 10/09/20 17:53 Dose: 1 applic Documented by: Naloxone HCl (Naloxone 0.4 Mg/Ml 1 Ml Vial) 0.2 mg IV Q2M PRN PRN Reason: Opioid Reversal Zinc Sulfate (Zinc Sulfate 220 Mg Cap) 220 mg PO DAILY [facility] Last Admin: 10/09/20 09:10 Dose: Not Given Documented by: On examination: VITAL SIGNS: 99.6, 120, 36, 74/57, 86% on the ventilator GENERAL APPEARANCE: , Prone position, intubated RESPIRATORY: Respiratory effort increased. Accessory muscles are working Rest of the exam as per pulmonary and nursing INVESTIGATIONS, reviewed in the clinical context: October 09: WBC 11.9 hemoglobin 15 platelets 192 d-dimer 15.2 potassium 4.4 creatinine 0.88 CRP 12.4 pro-calcitonin 0.2 to October 08: Potassium 4.1 October 07: D-dimer 3.71 potassium 4.1 creatinine 1.10 October 06: WBC 7.9 hemoglobin 14.2 platelets 258 d-dimer 1.06 potassium 4.3 creatinine 0.95 October 05: WBC 7 hemoglobin 13.9 d-dimer 0.67 CRP 53.1. Chest z-bif-bganez bibasilar. He had a little upper lobe and basilar infiltrates October 04: D-dimer 0.83 ABG: PO2 50 pCO2 45. Potassium 4.4 creatinine 1.07 CRP 81.8 D-dimer 0.82. AB.46, pCO2 34, pO2 128 CRP 65.9 Chest x-ray film personally reviewed by me-bilateral confluent infiltrates Admission labs: Pro-calcitonin 0.86 Coronavirus [PCR]: Detected Creatinine 1.78 Assessment and Plan Covid 19 pneumonia: Not improving -on Decadron, multivitamins, Lovenox.vitamin C, vitamin D, Pepcid, zinc (Remdesivir given 1 dose per ID. Discontinued by pulmonary.), ACTEMRA given Sepsis from COVID 19 pneumonia IV fluids. Follow clinically -Acute severe hypoxic respiratory failure secondary to COVID 19 pneumonia, - worsening BiPAP. -100%. Patient intubated today on October 09 -Acute renal failure creatinine 1.7 likely ATN.-Corrected Continue with IV fluids. Creatinine 0.95 -Morbid obesity BMI 41.8 Follow weight loss diet as an outpatient and follow with PCP -Hyperglycemia secondary to steroids Follow Accu-Cheks -Hypoalbuminemia Acute phase reactant -Acute hypoxic metabolic encephalopathy-slow to respond Oxygen supplementation Patient critically ill. 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
[2020-10-09] MEDS: NOREPINEPHRINE 32 MG in SODIUM CHLORIDE 0.9% 218 ML IV SCH (18:28)
[2020-10-09] MEDS: CHLORHEXIDINE GLUCONATE 15 ML CUP MUCOUS MEM SCH (20:04)
[2020-10-09] MEDS: ENOXAPARIN 60 MG/0.6 ML SYRINGE SQ SCH (20:05)
[2020-10-09] MEDS ORDERED: SODIUM CHLORIDE 0.9% 1,000 ML IV ONE (20:25)
[2020-10-09] MEDS ORDERED: FUROSEMIDE 10 MG/ML 4 ML VIAL IV STA (21:03)
[2020-10-09] MEDS: fentaNYL (PF) 2,500 MCG in SODIUM CHLORIDE 0.9% 200 ML IV SCH (23:59)
[2020-10-10] MEDS ORDERED: FUROSEMIDE 10 MG/ML 4 ML VIAL IV STA (01:25)
[2020-10-10] MEDS: ACETAMINOPHEN TAB 325 MG TAB PO PRN (02:02)
--- NOTE | 2020-10-10 02:25 | XR ---
EXAM: XR Chest, 1 View CLINICAL HISTORY: ITS.REASON XR Reason: hypoxia TECHNIQUE: Frontal view of the chest. COMPARISON: 07/11/2020 IMPRESSION: ET tube terminates 8 cm from the twin. NG tube terminates in the proximal stomach. Bilateral central lines unchanged. Persistent opacities but improved aeration of the lungs.
[2020-10-10] MEDS: ARTIFICIAL TEARS OINTMENT 3.5 GM TUBE BOTH EYES SCH ×6 (04:56→23:45)
[2020-10-10 05:03] LABS: Basophils # (A) 0.2 k/uL (0-0.2); Basophils % (A) 1 %; Eosinophils # (A) 0.1 k/uL (0-0.7); Eosinophils % (A) 0 %; HCT 52.3 % (39.0-53.0); HGB 16.7 gm/dL (13.0-17.5); Hypochromasia Marked; Lymphocytes # (A) 1.4 k/uL (1.0-4.8); Lymphocytes % (A) 5 %; MCH 30.9 pg (25.0-35.0); MCHC 31.9 g/dL (31.0-37.0); Monocytes # (A) 0.7 k/uL (0-1.0); Monocytes % (A) 2 %; Neutrophils # (A) 27.8 k/uL (1.3-7.7); Neutrophils % (A) 92 %; Platelet Count 130 k/uL (150-450); RBC 5.38 m/uL (4.30-5.90); RDW 13.9 % (11.5-15.5); WBC 30.4 k/uL (3.8-10.6)
[2020-10-10 05:04] LABS: MCV 97.1 fL (80.0-100.0)
--- NOTE | 2020-10-10 05:57 | P.PN ---
Subjective Progress Note Date: 10/10/20 On 10/10/2020, I am seeing this 40-year-old male patient is currently being treated in the intensive care unit for Covid 19 related pneumonia respiratory failure. The patient is currently intubated on a mechanical ventilator. The patient was intubated on 10/09/2020. He is morbidly obese with a BMI 41.3. Note that the patient was given Decadron, Lovenox, vitamin C, vitamin D, zinc and the patient was also given a dose of tocilizumab regarding his respiratory failure. Note that earlier to intubation, the patient was given BiPAP for respiratory support. He was unable to tolerate any diet and the patient was given TPN for nutritional support and he was also on Precedex and throat is restlessness and agitation. Subsequently, the patient decompensated. The patient was accordingly intubated and placed on a mechanical ventilator. Currently is on propofol which is running at 75 mics per kilogram per minute, the patient is also paralyzed with Nimbex at 2 mcg/kg per minute. The patient is also prone due to severe hypoxemia. The patient is also on an assist-control mode of ventilation at the rate of 36 with a tidal volume of 500 and PEEP is at 24 and an FiO2 of 100%. Chest x-ray from today was noted. Blood gases was noted. Chest x-ray showing diffuse bilaterally pulmonary infiltrates. ET tube is in a good location. The blood gases post intubation showed vascular acidosis and permissive hypercapnia with low tidal volume ventilation. The patient's pro calcitonin level was 0.22. The patient's LDH level was 3190 with a CRP level of 12.4. Triple-lumen catheter and arterial line was also established. The blood gases from yesterday showed a pH of 7.19 with a pCO2 of 63 and pO2 of 66 and this was done and 100% FiO2, his current pulse ox is in the order of 82% and a follow-up blood gases will be needed. The chest x-ray is showing bilateral pulmonary infiltrates perihilar and lower lobes. ET tube is sitting kind the trachea is to be advanced. The patient has a PICC line in the right upper extremity and the triple-lumen catheter in the left IJ. As far as his white c ount, it's up to 30.4 with a hemoglobin of 16, thefluid balance has been +1.8 L over the past 24 hours. The patient remains on Lovenox 60 mg every 12 hours, the patient is also on IV Solu-Medrol at 60 mg every 6 hours. TPN has been off for now. The patient is receiving lactated Ringer's at the rate of 50 mL an hour. Objective - Vital Signs Vital signs: Vital Signs Temp 102.2 F H 10/10/20 04:00 Pulse 126 H 10/10/20 05:00 Resp 24 10/10/20 05:00 BP 68/49 10/09/20 11:00 Pulse Ox 90 L 10/10/20 05:00 Intake & Output 10/09/20 10/09/20 10/10/20 06:59 18:59 06:59 Intake Total 4236.787 0280.575 2115.868 Output Total 505 504 90 Balance 2303.460 8916.575 2025.868 Weight 134.4 kg Intake: IV 1680 1344 1554 .9 pressure bag 24 54 Lactated Ringers 1,000 ml 600 600 500 @ 50 mls/hr IV .Q20H [facility] Rx#:[id number] Mvi, Adult No.4 with Vit 1080 720 K 10 ml Trace (Conc-1Ml/ Dose) 1 ml In Amino Acid 5%-D20w+Lytes*E* 1,000 ml @ 90 mls/hr IV .BY DURATION [facility] Rx#: [id number] Sodium Chloride 0.9% 1, 1000 000 ml @ 999 mls/hr IV . Q1H1M ONE Rx#:[id number] Intake, IV Titration 106.470 3792.575 561.868 Amount Cisatracurium 200 mg In 52.416 22.714 Sodium Chloride 0.9% 180 ml @ 1 MCG/KG/MIN 8.064 mls/hr IV .Q24H [facility] Rx#: [id number] Dexmedetomidine/0.9% NaCl 119.400 50.113 (Pmx) 400 mcg In Empty Bag 1 bag @ Titrate IV . Q0M [facility] Rx#:[id number] Norepinephrine 32 mg In 25.253 Sodium Chloride 0.9% 218 ml @ 0.05 MCG/KG/MIN 3.15 mls/hr IV .Q24H [facility] Rx#: [id number] Sodium Chloride 0.9% 1, 2000 000 ml @ 100 mls/hr IV . Q10H [facility] Rx#:[id number] fentaNYL (PF) 1,000 mcg 0.038 43.549 In Sodium Chloride 0.9% 80 ml @ Per Protocol IV . Q0M [facility] Rx#:[id number] propofoL 1,000 mg In 201.008 470.352 Empty Bag 1 bag @ Titrate IV .Q0M [facility] Rx#: [id number] Output: Urine 505 504 90 Other: Voiding Method Indwelling Catheter Indwelling Catheter Indwelling Catheter ABP, PAP, CO, CI - Last Documented Arterial Blood Pressure 105/70 - Exam Gen. appearance the patient is sedated, comfortable intubated on mechanical ventilator. Orogastric and orotracheal tube are both in place. Patient is currently in a prone body positioning. The patient is on a mechanical ventilator, sedated and paralyzed. HEENT examination is grossly unremarkable. Neck supple. Full range of motion. No adenopathy thyromegaly or neck vein distention. Cardiovascular examination reveals regular rhythm rate. S1-S2 normal. No S3 or S4. No discernible murmur noted. Heart rate 66 bpm. Heart sounds are distant. Lungs reveal diffuse coarse rhonchi. Bibasilar crackles are noted. Breath sounds equal bilaterally. Abdomen soft bowel sounds are heard. No masses or tenderness. Extremities are intact. No cyanosis clubbing or edema. Skin is without rash or lesion. Neurologic examination is brief but nonfocal. The patient is currently sedated, the patient is also paralyzed. - Labs CBC & Chem 7: 10/10/20 04:35 10/09/20 04:30 Labs: Abnormal Lab Results - Last 24 Hours (Table) 10/09/20 10/09/20 10/09/20 Range/Units 04:38 11:33 13:12 WBC (3.8-10.6) k/uL Plt Count (150-450) k/uL Neutrophils # (1.3-7.7) k/uL ABG pH 7.11 L* 7.13 L* (7.35-7.45) ABG pCO2 67 H 69 H (35-45) mmHg ABG pO2 27 L* 52 L* (83-108) mmHg ABG Total CO2 25 H (19-24) mmol/L ABG O2 Saturation 27.1 L 71.5 L (94-97) % Procalcitonin 0.22 H (0.02-0.09) ng/mL 10/09/20 10/10/20 Range/Units 15:28 04:35 WBC 30.4 H (3.8-10.6) k/uL Plt Count 130 L (150-450) k/uL Neutrophils # 27.8 H (1.3-7.7) k/uL ABG pH 7.19 L* (7.35-7.45) ABG pCO2 63 H (35-45) mmHg ABG pO2 66 L (83-108) mmHg ABG Total CO2 26 H (19-24) mmol/L ABG O2 Saturation 86.8 L (94-97) % Procalcitonin (0.02-0.09) ng/mL Assessment and Plan Plan: 1 Acute hypoxemic respiratory failure secondary to COVID 19 pneumonitis, status post intubation and mechanical ventilation on 10/09/2020. The patient was i nitially on high flow oxygen, transitioned to BiPAP and subsequently the patient had to be intubated and placed on a mechanical ventilator. The patient is currently on IV Solu-Medrol . Patient is also on Lovenox. Inflammatory markers are quite elevated and the chest x-ray showing diffuse but the pulmonary infiltrates. The P/F ratio low. The patient has has respiratory acidosis with low tidal volume ventilation and permissive hypercapnia. The patient is currently sedated and paralyzed and the patient is also prone because of severe hypoxemia that involved post intubation. Events post intubation was noted. The patient became profoundly hypoxic and he had some hemodynamic instability wit hout cardiac arrest. Currently prone on a mechanical ventilator, sedated and paralyzed. The peak air pressures around 40 with a static pressure of 42. This is while being in a supine body position. We'll do this 70 ventilator changes and without the tidal volume once ABGs available. 2 Obesity BMI of , BMI of 41 3 elevated inflammatory markers secondary to above-mentioned infection with an e levated d-dimer at 15.2 yesterday Plan: Continue ventilator support obtain a blood gas in the necessity ventilator changes will be done The patient hasn't prone for at least 16 hours. We will which and back supine and monitor his blood gases and chest x-ray The patient is currently sedated with propofol and will continue sedation for now, The patient is also paralyzed and will continue dialysis for now Chest x-ray was noted and it showed diffuse but the pulmonary infiltrates consistent with pneumonia/ARDS Continue steroidsAnd the patient is on IV Solu-Medrol Patient has completed Tocilizumab and a unit of high dose convalescent plasma We'll initiate enteral feeding for nutritional support and stop TPN, And after feeding will be started once the patient is back and a supine body position Continue multivitamin supplements Condition is critical we'll continue to follow make further recommendations based on her progress. Critically care evaluation more than 30 minutes. Time with Patient: Greater than 30
[2020-10-10 06:04] LABS: Calcium 7.8 mg/dL (8.4-10.2); Magnesium 2.2 mg/dL (1.6-2.3); Total Protein 6.3 g/dL (6.3-8.2)
[2020-10-10 06:05] LABS: Albumin 3.5 g/dL (3.5-5.0); Total Bilirubin 1.8 mg/dL (0.2-1.3)
[2020-10-10 06:06] LABS: ABG Base Excess -12.6 mmol/L; ABG HCO3 18 mmol/L (21-25); ABG Oxygen Saturation 94.1 % (94-97); ABG PCO2 63 mmHg (35-45); ABG PO2 86 mmHg (83-108); ABG TCO2 20 mmol/L (19-24); Allen Test Performed? Yes
[2020-10-10 06:08] LABS: Phosphorus 9.2 mg/dL (2.5-4.5)
[2020-10-10 06:10] LABS: Potassium 8.3 mmol/L (3.5-5.1)
[2020-10-10] MEDS ORDERED: SODIUM BICARB 8.4% 50 ML SYR (1 MEQ/ML) IV STA ×3 (06:22→16:36)
[2020-10-10] MEDS ORDERED: DEXTROSE 50% SYRINGE 50 ML IVP STA (06:23)
[2020-10-10] MEDS ORDERED: INSULIN REGULAR 100 UNIT/ML VIAL IV ONE (06:23)
[2020-10-10] MEDS ORDERED: SODIUM BICARB 8.4% 50 ML SYR (1 MEQ/ML) ONE (06:26)
[2020-10-10] MEDS: 1: MVI, ADULT NO.4 WITH VIT K 10 ML, TRACE (CONC-1ML/DOSE) 1 ML in AMINO ACID 5%-D20W+LY IV SCH ×3 (06:28)
[2020-10-10 06:32] LABS: ABG PH 7.06 (7.35-7.45)
[2020-10-10] MEDS: CISATRACURIUM 200 MG in SODIUM CHLORIDE 0.9% 180 ML IV SCH ×2 (06:36→14:16)
[2020-10-10] MEDS: LACTATED RINGERS 1,000 ML IV SCH ×2 (06:40→21:18)
[2020-10-10] MEDS: methylPREDNISolone SOD SUCCI 125 MG/2 ML VIAL IV SCH ×4 (06:51→23:06)
--- NOTE | 2020-10-10 07:51 | XR ---
EXAMINATION TYPE: XR chest 1V portable DATE OF EXAM: 10/10/2020 CLINICAL HISTORY: Difficulty breathing progress study. COVID positive. TECHNIQUE: Single AP portable upright view of the chest is obtained. COMPARISON: Chest x-ray from earlier today and older studies. FINDINGS: Stable endotracheal and orogastric tubes. Stable left subclavian central venous catheter. Persistent bilateral multifocal increased opacities. Cardiac silhouette size stable and within normal limits. Osseous structures are intact. IMPRESSION: Persistent bilateral multifocal opacities consistent with covid-19 infection. No signific ant change from most recent x-ray.
[2020-10-10] MEDS: DEXTROSE 5% IN WATER 1,000 ML with SODIUM BICARB (1 MEQ/ML) 150 ML IV SCH ×2 (08:00→19:08)
[2020-10-10] MEDS: fentaNYL (PF) 2,500 MCG in SODIUM CHLORIDE 0.9% 200 ML IV SCH ×2 (08:01→17:30)
[2020-10-10] MEDS: FAMOTIDINE 20 MG TAB PO SCH (08:10)
[2020-10-10] MEDS: CHOLECALCIFEROL 25 MCG (1000 IU) TABLET PO SCH (08:10)
[2020-10-10] MEDS: CHLORHEXIDINE GLUCONATE 15 ML CUP MUCOUS MEM SCH ×2 (08:10→21:38)
[2020-10-10] MEDS: ZINC SULFATE 220 MG CAP PO SCH (08:10)
[2020-10-10] MEDS: ASCORBIC ACID 500 MG TAB PO SCH ×2 (08:10→21:38)
[2020-10-10 08:29] LABS: ABG Base Excess -9.8 mmol/L; ABG HCO3 21 mmol/L (21-25); ABG Oxygen Saturation 93.2 % (94-97); ABG PO2 83 mmHg (83-108); ABG TCO2 23 mmol/L (19-24); Allen Test Performed? Yes
[2020-10-10 08:32] LABS: ABG PCO2 73 mmHg (35-45); ABG PH 7.06 (7.35-7.45)
[2020-10-10] MEDS ORDERED: INSULIN REGULAR BOLUS (FROM DRIP BAG) IV PRN (09:23)
[2020-10-10] MEDS ORDERED: CALCIUM GLUCONATE 1 GM in SODIUM CHLORIDE 0.9% 100 ML IVPB ONE ×3 (09:25→22:00)
[2020-10-10] MEDS: ENOXAPARIN 60 MG/0.6 ML SYRINGE SQ SCH (10:13)
[2020-10-10] MEDS: INSULIN REGULAR 100 UNIT in SODIUM CHLORIDE 0.9% 100 ML IV SCH ×2 (10:14→18:13)
[2020-10-10 10:25] LABS: Glucose,Whole Blood 359 mg/dL (75-99)
[2020-10-10] MEDS: NOREPINEPHRINE 32 MG in SODIUM CHLORIDE 0.9% 218 ML IV SCH ×3 (10:31→21:18)
[2020-10-10 10:51] LABS: Glucose,Whole Blood 370 mg/dL (75-99)
[2020-10-10 11:12] LABS: ABG Base Excess -5.1 mmol/L; ABG HCO3 24 mmol/L (21-25); ABG Oxygen Saturation 90.7 % (94-97); ABG PO2 69 mmHg (83-108); ABG TCO2 27 mmol/L (19-24); Allen Test Performed? Yes
[2020-10-10 11:15] LABS: ABG PCO2 75 mmHg (35-45); ABG PH 7.12 (7.35-7.45)
[2020-10-10] MEDS ORDERED: SODIUM POLYSTYRENE SULFONATE 15 GM/60 ML BOTTLE PO STA (11:16)
[2020-10-10 11:47] VITALS: BMI 41.3
[2020-10-10 12:23] LABS: Glucose,Whole Blood 300 mg/dL (75-99)
[2020-10-10] MEDS ORDERED: propofoL 100 ML IV ONE (13:18)
[2020-10-10 14:19] LABS: Glucose,Whole Blood 275 mg/dL (75-99)
[2020-10-10 14:40] LABS: Potassium 7.3 mmol/L (3.5-5.1)
[2020-10-10 15:41] LABS: Glucose,Whole Blood 296 mg/dL (75-99)
[2020-10-10] MEDS ORDERED: VANCOMYCIN IV PER PHARMACY 1 EACH MISC MISCELLANE PRN (16:14)
[2020-10-10] MEDS ORDERED: FUROSEMIDE 10 MG/ML 10 ML VIAL IV STA (16:36)
[2020-10-10] MEDS: SODIUM CHLORIDE 0.9% 150 ML with VASOPRESSIN 60 UNIT IV SCH ×2 (16:43)
[2020-10-10] MEDS ORDERED: VANCOMYCIN 2,000 MG in SODIUM CHLORIDE 0.9% 500 ML 500 ML IVPB ONE (16:45)
[2020-10-10] MEDS: ACETAMINOPHEN IV (For NPO) 1,000 MG in EMPTY BAG 1 BAG IVPB PRN ×2 (16:45→22:21)
[2020-10-10] MEDS ORDERED: PIPERACILLIN-TAZOBACTAM 3.375 GM in SODIUM CHLORIDE 0.9% 100 ML IVPB SCH (17:00)
--- NOTE | 2020-10-10 17:01 | ECHOF ---
Referral Reason:hemodynamic instability MEASUREMENTS -------- HEIGHT: 180.3 cm WEIGHT: 134.3 kg BP: 65/42 IVSd: 1.4 cm (0.6 - 1.1) LVIDd: 3.0 cm (3.9 - 5.3) LVPWd: 1.5 cm (0.6 - 1.1) EDV(Teich): 36 ml RVIDd: 4.3 cm (< 3.3) AV Vmax: 1.44 m/s AV maxP.24 mmHg TR Vmax: 3.05 m/s TR maxP.26 mmHg RAP: 5.00 mmHg RVSP: 42.26 mmHg FINDINGS -------- Resting tachycardia (HR>100bpm). This was a technically difficult study with suboptimal views. Pt. on a vent. Unable to coment on EF very TDS and tachycardia. The right ventricle is severely enlarged. 5.0mg of Lumason was utilized for enhancement of images The aortic valve was not well visualized. The mitral valve was not well visualized. Moderate tricuspid regurgitation present. There is moderate pulmonary hypertension. The right jose tricular systolic pressure, as measured by Doppler, is 42.26mmHg. The pulmonic valve was not well visualized. There is no pericardial effusion. CONCLUSIONS -------- 1. Unable to coment on EF very TDS and tachycardia. 2. The right ventricle is severely enlarged. 3. Moderate tricuspid regurgitation present. 4. There is moderate pulmonary hypertension. 5. The right ventricular systolic pressure, as measured by Doppler, is 42.26mmHg. [employer] REFINISHER: Jessica Shay RDCS
[2020-10-10 17:25] LABS: Glucose,Whole Blood 273 mg/dL (75-99)
[2020-10-10 17:46] LABS: Glucose,Whole Blood 314 mg/dL (75-99)
[2020-10-10] MEDS ORDERED: LIDOCAINE 1% INJ 10MG/ML (20 ML MDV) ONE (20:00)
--- NOTE | 2020-10-10 20:32 | PCN ---
PROCEDURE NOTE PREOPERATIVE DIAGNOSIS: Acute on chronic renal failure, positive COVID, on ventilator. PROCEDURE PERFORMED: Ultrasound-guided dialysis catheter placement via anterior approach. PROCEDURE DESCRIPTION: Right side of the neck and chest was prepped and draped in usual sterile manner. Ultrasound-guided micropuncture was introduced in the right jugular vein. Micropuncture guidewire was passed and 4-[place] dilator advanced. Then we passed a regular guidewire, and dilator was advanced, and dialysis catheter was advanced on top of the guidewire, flushed with heparin saline and secured with 3-0 nylon. Dressing was applied. Patient tolerated the procedure well. MMODL / IJN: [id number] /
--- NOTE | 2020-10-10 20:34 | XR ---
EXAMINATION TYPE: XR chest 1V portable DATE OF EXAM: 10/10/2020 COMPARISON: Today HISTORY: Catheter placement. TECHNIQUE: Single view FINDINGS: There is left subclavian catheter with tip in the superior vena cava. There is right jugula r catheter with the tip in superior vena cava. There is right subclavian catheter with tip in the sup erior vena cava. There is nasogastric tube with the tip over the gastric fundus. There is coarse pulm onary interstitial infiltrates. Heart size is normal. IMPRESSION: Bilateral pulmonary interstitial infiltrates appears slightly worse than exam this altagracia arreguin. Endotracheal tube is not seen.
[2020-10-10] MEDS: IVERMECTIN 3 MG TABLET PO SCH (21:03)
[2020-10-10] MEDS: SODIUM BICARB 8.4% 50 ML SYR (1 MEQ/ML) ONE (21:28)
[2020-10-10] MEDS: PIPERACILLIN-TAZOBACTAM 3.375 GM in SODIUM CHLORIDE 0.9% 100 ML IVPB SCH (21:37)
--- NOTE | 2020-10-10 21:49 | P.PN ---
Progress Note - Text Progress Note Date: 10/10/20 Presenting complaint Short of breath History of Present Illness Pleasant 48-year-old male, whose PCP is Dr. Ring, came in with complains of weakness fever he denied any shortness of breath patient but patient is hypoxic and requiring 4 L of oxygen patient denied any significant cough diarrhea. Patient is found to have Covid 19. Patient had a chest x-ray which is showing bilateral interstitial infiltrates. Patient did get a dose of ACTEMRA. ID did start the patient on Remdesivir. Pulmonary did not feel the need for the same. Discontinued. Worsening short of breath. Placed on BiPAP October 04: being moved to the ICU. Patient intubated on October 09 Today: ICU: Not doing well. Ventilator: FiO2 100% and PEEP of 24. Drips included propofol, Nimbex, fentanyl, norepinephrine, insulin. High fevers Review of systems: Patient intubated Active Medications Acetaminophen (Acetaminophen Tab 325 Mg Tab) 650 mg PO Q6HR PRN PRN Reason: Mild Pain or Fever > 100.5 Last Admin: 10/10/20 02:02 Dose: 650 mg Documented by: Ascorbic Acid (Ascorbic Acid 500 Mg Tab) 500 mg PO BID [facility] Last Admin: 10/10/20 21:38 Dose: 500 mg Documented by: Chlorhexidine Gluconate (Chlorhexidine Gluconate 15 Ml Cup) 15 ml MUCOUS MEM BID [facility] Last Admin: 10/10/20 21:38 Dose: 15 ml Documented by: Cholecalciferol (Cholecalciferol 25 Mcg (1000 Iu) Tablet) 125 mcg PO DAILY [facility] Last Admin: 10/10/20 08:10 Dose: 125 mcg Documented by: Enoxaparin Sodium (Enoxaparin 80 Mg/0.8 Ml Syringe) 70 mg SQ Q24HR [facility] Famotidine (Famotidine 20 Mg Tab) 20 mg PO DAILY [facility] Lactated Ringer's (Lactated Ringers) 1,000 mls @ 50 mls/hr IV .Q20H [facility] Last Admin: 10/10/20 21:18 Dose: 50 mls/hr Documented by: Cisatracurium Besylate 200 mg/ (Sodium Chloride) 200 mls @ 8.064 mls/hr IV .Q24H [facility]; Protocol Last Admin: 10/10/20 14:16 Dose: 2 mcg/kg/min, 16.128 mls/hr Documented by: Propofol 1,000 mg/ IV Solution 100 mls @ 0 mls/hr IV .Q0M [facility]; Protocol Last Admin: 10/10/20 17:31 Dose: 75 mcg/kg/min, 60.48 mls/hr Documented by: Norepinephrine Bitartrate 32 (mg/ Sodium Chloride) 250 mls @ 3.15 mls/hr IV .Q24H [facility]; Protocol Last Admin: 10/10/20 21:18 Dose: 0.9 mcg/kg/min, 56.7 mls/hr Documented by: Fentanyl Citrate 2,500 mcg/ (Sodium Chloride) 250 mls @ 0 mls/hr IV .Q0M [facility]; Protocol Last Admin: 10/10/20 17:30 Dose: 240 mcg/hr, 24 mls/hr Documented by: Sodium Bicarbonate 150 ml/ (Dextrose/Water) 1,150 mls @ 100 mls/hr IV .[id number] [facility] Last Admin: 10/10/20 19:08 Dose: 100 mls/hr Documented by: Insulin Human Regular 100 unit (/ Sodium Chloride) 101 mls @ 0 mls/hr IV .Q0M [facility]; Protocol Last Admin: 10/10/20 18:13 Dose: 13 ml/hr, 13 mls/hr Documented by: Acetaminophen 1,000 mg/ IV (Solution) 100 mls @ 400 mls/hr IVPB Q6HR PRN PRN Reason: Fever Stop: 10/11/20 12:14 Last Admin: 10/10/20 16:45 Dose: 400 mls/hr Documented by: Vasopressin 60 unit/ Sodium (Chloride) 153 mls @ 4.59 mls/hr IV .Q24H [facility] Last Admin: 10/10/20 16:43 Dose: 4.59 mls/hr Documented by: Vancomycin HCl 2,000 mg/ (Sodium Chloride) 500 mls @ 167 mls/hr IVPB ONCE ONE Stop: 10/11/20 14:59 Piperacillin Sod/Tazobactam (Sod 3.375 gm/ Sodium Chloride) 100 mls @ 25 mls/hr IVPB Q8H [facility] Last Admin: 10/10/20 21:37 Dose: 25 mls/hr Documented by: Ivermectin (Ivermectin 3 Mg Tablet) 27 mg PO DAILY [facility] Stop: 10/14/20 09:01 Last Admin: 10/10/20 21:03 Dose: 27 mg Documented by: Methylprednisolone Sodium Succinate (Methylprednisolone Sod Succi 125 Mg/2 Ml Vial) 60 mg IV Q6HR [facility] Last Admin: 10/10/20 18:40 Dose: 60 mg Documented by: Miscellaneous Information ([facility] each MISCELLANE DIRECTED PRN; Protocol PRN Reason: Per Protocol Multi-Ingred Cream/Lotion/Oil/Oint (Artificial Tears Ointment 3.5 Gm Tube) 1 applic BOTH EYES Q4HR [facility] Last Admin: 10/10/20 21:35 Dose: 1 applic Documented by: Naloxone HCl (Naloxone 0.4 Mg/Ml 1 Ml Vial) 0.2 mg IV Q2M PRN PRN Reason: Opioid Reversal Zinc Sulfate (Zinc Sulfate 220 Mg Cap) 220 mg PO DAILY [facility] Last Admin: 10/10/20 08:10 Dose: 220 mg Documented by: On examination: VITAL SIGNS: 13.1, 141, 36, 100/64, 88% on the ventilator GENERAL APPEARANCE: , Laying in bed intubated RESPIRATORY: Respiratory effort increased. Accessory muscles are working Rest of the exam as per pulmonary and nursing INVESTIGATIONS, reviewed in the clinical context: October 10: WBC 30.4 hemoglobin 16.7 platelets 1:30 ABG pH 7.06 pCO2 63 pO2 86 potassium 8.3 bun 41 and creatinine 3.68 October 09: WBC 11.9 hemoglobin 15 platelets 192 d-dimer 15.2 potassium 4.4 creatinine 0.88 CRP 12.4 pro-calcitonin 0.2 to October 08: Potassium 4.1 October 07: D-dimer 3.71 potassium 4.1 creatinine 1.10 October 06: WBC 7.9 hemoglobin 14.2 platelets 258 d-dimer 1.06 potassium 4.3 creatinine 0.95 October 05: WBC 7 hemoglobin 13.9 d-dimer 0.67 CRP 53.1. Chest v-xti-alupoh bibasilar. He had a little upper lobe and basilar infiltrates October 04: D-dimer 0.83 ABG: PO2 50 pCO2 45. Potassium 4.4 creatinine 1.07 CRP 81.8 D-dimer 0.82. AB.46, pCO2 34, pO2 128 CRP 65.9 Chest x-ray film personally reviewed by ct-bilateral confluent infiltrates Admission labs: Pro-calcitonin 0.86 Coronavirus [PCR]: Detected Creatinine 1.78 Assessment and Plan Covid 19 pneumonia: Worsening -on Decadron, multivitamins, Lovenox.vitamin C, vitamin D, Pepcid, zinc (Remdesivir given 1 dose per ID. Discontinued by pulmonary.), ACTEMRA given Sepsis from COVID 19 pneumonia-worsening IV fluids. Follow clinically -Acute severe hypoxic respiratory failure secondary to COVID 19 pneumonia, - worsening BiPAP. -100%. Patient intubated today on October 09 -Acute renal failure creatinine 1.7 likely ATN.-Worsening Continue with IV fluids. Creatinine-3.68 -Severe hyperkalemia secondary to acute kidney injury For urgent hemodialysis -Morbid obesity BMI 41.8 Follow weight loss diet as an outpatient and follow with PCP -Hyperglycemia secondary to steroids Follow Accu-Cheks -Hypoalbuminemia Acute phase reactant -Acute hypoxic metabolic encephalopathy-slow to respond Oxygen supplementation Patient remains critically ill. Dr. Fields was consulted for dialysis catheter.. Prognosis is poor. Nephrology consulted. Patient will need urgent hemodialysis
[2020-10-10 21:53] LABS: Glucose,Whole Blood 255 mg/dL (75-99)
[2020-10-10 23:26] LABS: Glucose,Whole Blood 208 mg/dL (75-99)
[2020-10-11] MEDS: SODIUM BICARB 8.4% 50 ML SYR (1 MEQ/ML) ONE (00:35)
[2020-10-11] MEDS: NOREPINEPHRINE 32 MG in SODIUM CHLORIDE 0.9% 218 ML IV SCH ×7 (00:54→22:25)
[2020-10-11 01:04] LABS: Glucose,Whole Blood 165 mg/dL (75-99)
[2020-10-11 03:06] LABS: Glucose,Whole Blood 117 mg/dL (75-99)
[2020-10-11] MEDS: PIPERACILLIN-TAZOBACTAM 3.375 GM in SODIUM CHLORIDE 0.9% 100 ML IVPB SCH (04:17)
[2020-10-11 04:58] LABS: Glucose,Whole Blood 128 mg/dL (75-99)
[2020-10-11] MEDS: ARTIFICIAL TEARS OINTMENT 3.5 GM TUBE BOTH EYES SCH ×6 (05:06→23:43)
[2020-10-11] MEDS: methylPREDNISolone SOD SUCCI 125 MG/2 ML VIAL IV SCH ×4 (05:10→23:43)
[2020-10-11 05:26] LABS: Potassium 5.2 mmol/L (3.5-5.1)
[2020-10-11 05:26] LABS: ABG Base Excess -4.8 mmol/L; ABG HCO3 24 mmol/L (21-25); ABG Oxygen Saturation 96.5 % (94-97); ABG PCO2 65 mmHg (35-45); ABG PO2 105 mmHg (83-108); ABG TCO2 26 mmol/L (19-24)
[2020-10-11 05:28] LABS: ABG PH 7.17 (7.35-7.45)
[2020-10-11 05:41] LABS: C Reactive Protein 39.9 mg/L (<10.0)
[2020-10-11 05:47] LABS: Creatine Kinase 2246 U/L (55-170)
--- NOTE | 2020-10-11 05:49 | P.PN ---
Subjective Progress Note Date: 10/11/20 On 10/10/2020, I am seeing this 40-year-old male patient is currently being treated in the intensive care unit for Covid 19 related pneumonia respiratory failure. The patient is currently intubated on a mechanical ventilator. The patient was intubated on 10/09/2020. He is morbidly obese with a BMI 41.3. Note that the patient was given Decadron, Lovenox, vitamin C, vitamin D, zinc and the patient was also given a dose of tocilizumab regarding his respiratory failure. Note that earlier to intubation, the patient was given BiPAP for respiratory support. He was unable to tolerate any diet and the patient was given TPN for nutritional support and he was also on Precedex and throat is restlessness and agitation. Subsequently, the patient decompensated. The patient was accordingly intubated and placed on a mechanical ventilator. Currently is on propofol which is running at 75 mics per kilogram per minute, the patient is also paralyzed with Nimbex at 2 mcg/kg per minute. The patient is also prone due to severe hypoxemia. The patient is also on an assist-control mode of ventilation at the rate of 36 with a tidal volume of 500 and PEEP is at 24 and an FiO2 of 100%. Chest x-ray from today was noted. Blood gases was noted. Chest x-ray showing diffuse bilaterally pulmonary infiltrates. ET tube is in a good location. The blood gases post intubation showed vascular acidosis and permissive hypercapnia with low tidal volume ventilation. The patient's pro calcitonin level was 0.22. The patient's LDH level was 3190 with a CRP level of 12.4. Triple-lumen catheter and arterial line was also established. The blood gases from yesterday showed a pH of 7.19 with a pCO2 of 63 and pO2 of 66 and this was done and 100% FiO2, his current pulse ox is in the order of 82% and a follow-up blood gases will be needed. The chest x-ray is showing bilateral pulmonary infiltrates perihilar and lower lobes. ET tube is sitting kind the trachea is to be advanced. The patient has a PICC line in the right upper extremity and the triple-lumen catheter in the left IJ. As far as his white c ount, it's up to 30.4 with a hemoglobin of 16, thefluid balance has been +1.8 L over the past 24 hours. The patient remains on Lovenox 60 mg every 12 hours, the patient is also on IV Solu-Medrol at 60 mg every 6 hours. TPN has been off for now. The patient is receiving lactated Ringer's at the rate of 50 mL an hour. 10/11/2020 the patient is being seen for a follow-up. This is a 40-year-old male patient with Covid 19 related pneumonia respiratory failure. The patient's condition has significant decompensated since intubation and mechanical ventilation. The patient has subsequently become hypotensive requiring high doses of pressors and the patient also ended up in acute renal failure, and oriented and in severe hemodynamic collapse post respiratory failure. In summary, the patient is morning remains on a mechanical ventilator. The patient is sedated with propofol which is running at 50 mics for respiratory kilogram per minute and the patient is also on Nimbex at 2 mcg/kg per minute. The patient remains on a mechanical ventilator. This morning, he is an assist- control mode with a tidal volume of 36 and FiO2 of 20% with a tidal volume of 500 and respiratory rate of 36. Blood gases from today shows a pH of 7.17 with a pCO2 of 65 and pO2 of 105. The chest x-ray from today is still pending. Nevertheless, her chest x-ray from yesterday showed diffuse bilateral pulmonary infiltrates consistent with Covid 19 related pneumonia. In terms of his overall hemodynamics, the patient has required significant amount of pressors. Post intubation, the patient placed on pressors and he continued to be quite hypotensive and currently is on a combination of norepinephrine infusion running at 1 mcg/kg per minute and his vasopressin is running at 0.05 units per hour. He had issues with hyperkalemia and the potassium level was at 7.3 and the patient also developed acute kidney injury. Based on this issue, nephrology was consulted and based on his underlying acidosis and hyperkalemia and renal failure, we attempted dialysis. Breasts catheter was inserted in his right IJ. Within 30 minutes into his dialysis, the patient was unable to tolerate because of hypotension and massive hemodynamic instability. Based on that, the dialysis was discontinued. He has not produced any urine output since. In terms of his vitals, the patient was having mics of fever throughout the night yesterday and currently he is afebrile. His cultures are negative. Blood cultures were sent and the patient was covered with empiric antibiotics including a combination of Zosyn and he was also given a dose of vancomycin. He remains on a bicarb infusion at the rate of 100 mL an hour. Most recent potassium level is down to 4.2. His cardiac rhythm is sinus. His white cell count was on the rise from yesterday. Awaiting labs from today. The peak airway pressures around 41. Static pressure is 37. He remains on volume cycle assist-control mode. Condition is extremely critical. is at the bedside. The family has been cold and as the patient had significant episodes of hypotension yesterday. His CODE STATUS is DO NOT RESUSCITATE. Objective - Vital Signs Vital signs: Vital Signs Temp 98.7 F 10/11/20 04:30 Pulse 135 H 10/11/20 05:00 Resp 36 H 10/11/20 05:00 BP 85/48 10/10/20 21:24 Pulse Ox 87 L 10/11/20 05:00 Intake & Output 10/10/20 10/10/20 10/11/20 06:59 18:59 06:59 Intake Total 2555.990 3750.186 2416.017 Output Total 95 10 10 Balance 2460.990 3740.186 2406.017 Weight 134.4 kg Intake: IV 1610 2455 1738 .9 pressure bag 60 45 33 Calcium Gluconate 1 gm In 100 Sodium Chloride 0.9% 100 ml @ 100 mls/hr IVPB ONCE ONE Rx#:[id number] Calcium Gluconate 1 gm In 100 100 Sodium Chloride 0.9% 100 ml @ 100 mls/hr IVPB ONCE ONE Rx#:[id number] Dextrose 5% in Water 1, 1100 1100 000 ml @ 100 mls/hr IV . [id number] [facility] with Sodium Bicarb (1 Meq/ml) 150 ml Rx#:[id number] Lactated Ringers 1,000 ml 550 600 500 @ 50 mls/hr IV .Q20H [facility] Rx#:[id number] Sodium Chloride 0.9% 1, 1000 000 ml @ 999 mls/hr IV . Q1H1M ONE Rx#:[id number] Sodium Chloride 0.9% 150 10 5 ml @ 0.03 UNITS/MIN 4.59 mls/hr IV .Q24H [facility] with Vasopressin 60 unit Rx#: [id number] Vancomycin 2,000 mg In 500 Sodium Chloride 0.9% 500 ml 500 ml @ 167 mls/hr IVPB ONCE ONE Rx#: [id number] Intake, IV Titration 754.150 6926.186 678.017 Amount Cisatracurium 200 mg In 172.436 123.648 Sodium Chloride 0.9% 180 ml @ 1 MCG/KG/MIN 8.064 mls/hr IV .Q24H [facility] Rx#: [id number] Insulin Regular 100 unit 79.733 88.950 In Sodium Chloride 0.9% 100 ml @ Per Protocol IV .Q0M [facility] Rx#:[id number] Norepinephrine 32 mg In 159.653 317.121 388.395 Sodium Chloride 0.9% 218 ml @ 0.05 MCG/KG/MIN 3.15 mls/hr IV .Q24H [facility] Rx#: [id number] fentaNYL (PF) 1,000 mcg 43.549 In Sodium Chloride 0.9% 80 ml @ Per Protocol IV . Q0M [facility] Rx#:[id number] fentaNYL (PF) 2,500 mcg 476.3 In Sodium Chloride 0.9% 200 ml @ Per Protocol IV .Q0M [facility] Rx#:[id number] propofoL 1,000 mg In 570.352 248.384 200.672 Empty Bag 1 bag @ Titrate IV .Q0M [facility] Rx#: [id number] Tube Feeding 50 Output: Urine 95 10 10 Other: Voiding Method Indwelling Catheter Indwelling Catheter Indwelling Catheter ABP, PAP, CO, CI - Last Documented Arterial Blood Pressure 78/58 - Exam Gen. appearance the patient is sedated, comfortable intubated on mechanical ventilator. Orogastric and orotracheal tube are both in place. Patient is currently in a supine body positioning. The patient is on a mechanical ventilator, sedated and paralyzed. HEENT examination is grossly unremarkable. Neck supple. Full range of motion. No adenopathy thyromegaly or neck vein distention. Cardiovascular examination reveals regular rhythm rate. S1-S2 normal. No S3 or S4. No discernible murmur noted. Heart rate 66 bpm. Heart sounds are distant. Lungs reveal diffuse coarse rhonchi. Bibasilar crackles are noted. Breath sounds equal bilaterally. Abdominal exam revealed normal bowel sounds. The abdomen was soft, non-tender, and without masses, organomegaly, or appreciable enlargement of the abdominal aorta. Extremities are intact. No cyanosis clubbing and the patient's edema in all 4 extremities. Skin is without rash or lesion. Neurologic examination is brief but nonfocal. The patient is currently sedated, the patient is also paralyzed. - Labs CBC & Chem 7: 10/10/20 04:35 10/11/20 01:00 Labs: Abnormal Lab Results - Last 24 Hours (Table) 10/10/20 10/10/20 10/10/20 Range/Units 04:35 06:12 08:22 ABG pH 7.06 L* 7.06 L* (7.35-7.45) ABG pCO2 63 H 73 H* (35-45) mmHg ABG pO2 (83-108) mmHg ABG HCO3 18 L (21-25) mmol/L ABG Total CO2 (19-24) mmol/L ABG O2 Saturation 93.2 L (94-97) % Sodium 136 L (137-145) mmol/L Potassium 8.3 H* (3.5-5.1) mmol/L Carbon Dioxide 11 L (22-30) mmol/L BUN 41 H (9-20) mg/dL Creatinine 3.68 H (0.66-1.25) mg/dL Glucose 316 H (74-99) mg/dL POC Glucose (mg/dL) (75-99) mg/dL Calcium 7.8 L (8.4-10.2) mg/dL Phosphorus 9.2 H* (2.5-4.5) mg/dL Total Bilirubin 1.8 H (0.2-1.3) mg/dL AST 161 H (17-59) U/L ALT 167 H (4-49) U/L Alkaline Phosphatase 212 H (38-126) U/L 10/10/20 10/10/20 10/10/20 Range/Units 08:45 10:18 10:47 ABG pH (7.35-7.45) ABG pCO2 (35-45) mmHg ABG pO2 (83-108) mmHg ABG HCO3 (21-25) mmol/L ABG Total CO2 (19-24) mmol/L ABG O2 Saturation (94-97) % Sodium (137-145) mmol/L Potassium 8.0 H* (3.5-5.1) mmol/L Carbon Dioxide (22-30) mmol/L BUN (9-20) mg/dL Creatinine (0.66-1.25) mg/dL Glucose (74-99) mg/dL POC Glucose (mg/dL) 359 H 370 H (75-99) mg/dL Calcium (8.4-10.2) mg/dL Phosphorus (2.5-4.5) mg/dL Total Bilirubin (0.2-1.3) mg/dL AST (17-59) U/L ALT (4-49) U/L Alkaline Phosphatase (38-126) U/L 10/10/20 10/10/20 10/10/20 Range/Units 11:06 12:12 14:08 ABG pH 7.12 L* (7.35-7.45) ABG pCO2 75 H* (35-45) mmHg ABG pO2 69 L (83-108) mmHg ABG HCO3 (21-25) mmol/L ABG Total CO2 27 H (19-24) mmol/L ABG O2 Saturation 90.7 L (94-97) % Sodium (137-145) mmol/L Potassium (3.5-5.1) mmol/L Carbon Dioxide (22-30) mmol/L BUN (9-20) mg/dL Creatinine (0.66-1.25) mg/dL Glucose (74-99) mg/dL POC Glucose (mg/dL) 300 H 275 H (75-99) mg/dL Calcium (8.4-10.2) mg/dL Phosphorus (2.5-4.5) mg/dL Total Bilirubin (0.2-1.3) mg/dL AST (17-59) U/L ALT (4-49) U/L Alkaline Phosphatase (38-126) U/L 10/10/20 10/10/20 10/10/20 Range/Units 14:15 14:15 15:39 ABG pH (7.35-7.45) ABG pCO2 (35-45) mmHg ABG pO2 (83-108) mmHg ABG HCO3 (21-25) mmol/L ABG Total CO2 (19-24) mmol/L ABG O2 Saturation (94-97) % Sodium (137-145) mmol/L Potassium 7.3 H* (3.5-5.1) mmol/L Carbon Dioxide (22-30) mmol/L BUN 50 H (9-20) mg/dL Creatinine 4.75 H (0.66-1.25) mg/dL Glucose 293 H (74-99) mg/dL POC Glucose (mg/dL) 296 H (75-99) mg/dL Calcium 7.0 L (8.4-10.2) mg/dL Phosphorus 9.3 H* (2.5-4.5) mg/dL Total Bilirubin (0.2-1.3) mg/dL AST (17-59) U/L ALT (4-49) U/L Alkaline Phosphatase (38-126) U/L 10/10/20 10/10/20 10/10/20 Range/Units 17:14 17:44 19:00 ABG pH (7.35-7.45) ABG pCO2 (35-45) mmHg ABG pO2 (83-108) mmHg ABG HCO3 (21-25) mmol/L ABG Total CO2 (19-24) mmol/L ABG O2 Saturation (94-97) % Sodium (137-145) mmol/L Potassium 6.9 H* (3.5-5.1) mmol/L Carbon Dioxide (22-30) mmol/L BUN (9-20) mg/dL Creatinine (0.66-1.25) mg/dL Glucose (74-99) mg/dL POC Glucose (mg/dL) 273 H 314 H (75-99) mg/dL Calcium (8.4-10.2) mg/dL Phosphorus (2.5-4.5) mg/dL Total Bilirubin (0.2-1.3) mg/dL AST (17-59) U/L ALT (4-49) U/L Alkaline Phosphatase (38-126) U/L 10/10/20 10/10/20 10/11/20 Range/Units 21:52 23:23 01:03 ABG pH (7.35-7.45) ABG pCO2 (35-45) mmHg ABG pO2 (83-108) mmHg ABG HCO3 (21-25) mmol/L ABG Total CO2 (19-24) mmol/L ABG O2 Saturation (94-97) % Sodium (137-145) mmol/L Potassium (3.5-5.1) mmol/L Carbon Dioxide (22-30) mmol/L BUN (9-20) mg/dL Creatinine (0.66-1.25) mg/dL Glucose (74-99) mg/dL POC Glucose (mg/dL) 255 H 208 H 165 H (75-99) mg/dL Calcium (8.4-10.2) mg/dL Phosphorus (2.5-4.5) mg/dL Total Bilirubin (0.2-1.3) mg/dL AST (17-59) U/L ALT (4-49) U/L Alkaline Phosphatase (38-126) U/L 10/11/20 10/11/20 10/11/20 Range/Units 03:05 04:56 05:22 ABG pH 7.17 L* (7.35-7.45) ABG pCO2 65 H (35-45) mmHg ABG pO2 (83-108) mmHg ABG HCO3 (21-25) mmol/L ABG Total CO2 26 H (19-24) mmol/L ABG O2 Saturation (94-97) % Sodium (137-145) mmol/L Potassium (3.5-5.1) mmol/L Carbon Dioxide (22-30) mmol/L BUN (9-20) mg/dL Creatinine (0.66-1.25) mg/dL Glucose (74-99) mg/dL POC Glucose (mg/dL) 117 H 128 H (75-99) mg/dL Calcium (8.4-10.2) mg/dL Phosphorus (2.5-4.5) mg/dL Total Bilirubin (0.2-1.3) mg/dL AST (17-59) U/L ALT (4-49) U/L Alkaline Phosphatase (38-126) U/L Assessment and Plan Plan: 1 Acute hypoxemic respiratory failure secondary to COVID 19 pneumonitis, status post intubation and mechanical ventilation on 10/09/2020. The patient was initially on high flow oxygen, transitioned to BiPAP and subsequently the patient had to be intubated and placed on a mechanical ventilator. The patient is currently on IV Solu-Medrol . Patient is also on Lovenox. Inflammatory markers are quite elevated and the chest x-ray showing diffuse but the pulmonary infiltrates. The P/F ratio low. The patient has has respiratory acidosis with low tidal volume ventilation and permissive hypercapnia. The patient is currently sedated and paralyzed and the patient is also prone because of severe hypoxemia that involved post intubation. Events post intubation was noted. The patient became profoundly hypoxic and he had some hemodynamic instability without cardiac arrest. Currently prone on a mechanical ventilator, sedated and paralyzed. The peak air pressures around 40 with a static pressure of 42. This is while being in a supine body position. W On 10/11/2020, the patient is being seen for a follow-up. The patient is currently in a supine body position. He remains on assist control mode of ventilation, volume cycle. Chest x-ray showing diffuse but the pulmonary infiltrates. Blood gas was noted. There has been some improvement in his acid base status as the patient is receiving bicarb infusion. PO2 from this morning is 105 and this was done and it PEEP of 24 and FiO2 of 100%. We may be able to wean his FiO2 down 2 Obesity BMI of , BMI of 41 3 elevated inflammatory markers secondary to above 4 shock with massive hypotension, consider underlying sepsis. A stat echocardiogram was done yesterday and it was somewhat limited as the patient's ejection fraction could not be adequately estimated. There was moderate degree of pulmonary hypertension based on echocardiogram with a PA pressure of 42. His RV was dilated. The patient is co-also covered with broad-spectrum antibiotics and the patient is currently on examination Zosyn and vancomycin. He is on high-dose pressors including norepinephrine infusion and the patient is also on physiologic dose of vasopressin 5 acute kidney injury, dialysis catheter has been inserted, unable to tolerate dialysis because of hypotension and hemodynamic instability, the patient a producing any urine output 6 acute hyperkalemia, improved 7 episodic fever secondary to above 8 acute leukocytosis 9 Thrombocytopenia 10 acute rhabdomyolysis Plan: Continue ventilator support, wean down the FiO2 as tolerated to 10% and attempt to maintain a saturation above 90% Keep the patient supine The patient is currently sedated with propofol and will continue sedation for now, The patient is also paralyzed Chest x-ray was noted and it showed diffuse but the pulmonary infiltrates consistent with pneumonia/ARDS Continue steroids, IV Solu-Medrol Patient has completed Tocilizumab and a unit of high dose convalescent plasma Monitor acid-base status. Potassium level is improved. Continue the bicarb infusion for now Nephrology is on the case and the patient may be given another attempt of hemodialysis Gradually wean off the pressors if possible. Echocardiogram was done and unable to obtain adequate left ventricular ejection fraction read Continue IV Solu-Medrol Continue Zosyn and vancomycin Monitor white cell count Monitor renal function and electrolytes We'll initiate enteral feeding for nutritional support and stop TPN, And after feeding will be started once the patient is back and a supine body position Continue multivitamin supplements Condition is critical we'll continue to follow make further recommendations based on her progress. DNR/DNI status per family. We'll continue medical treatment for now Condition is critical and this evaluation was on a more than 30 minutes.
[2020-10-11 05:50] LABS: Calcium 6.4 mg/dL (8.4-10.2)
[2020-10-11] MEDS ORDERED: CALCIUM GLUCONATE 1 GM in SODIUM CHLORIDE 0.9% 100 ML IVPB ONE (06:00)
[2020-10-11 06:03] LABS: HGB 16.1 gm/dL (13.0-17.5); MCH 34.1 pg (25.0-35.0); MCHC 36.7 g/dL (31.0-37.0); Mean Platelet Volume 9.6; Platelet Count 66 k/uL (150-450); RBC 4.73 m/uL (4.30-5.90); RDW 14.7 % (11.5-15.5)
[2020-10-11] MEDS: DEXTROSE 5% IN WATER 1,000 ML with SODIUM BICARB (1 MEQ/ML) 150 ML IV SCH ×2 (06:23→17:19)
[2020-10-11 06:29] LABS: LDH >21500 U/L (313-618)
[2020-10-11 06:53] LABS: Glucose,Whole Blood 145 mg/dL (75-99)
[2020-10-11 06:54] LABS: MCV 92.9 fL (80.0-100.0)
[2020-10-11 08:58] LABS: D-Dimer 32.45 mg/L FEU (<0.60)
[2020-10-11] MEDS ORDERED: FAMOTIDINE 20 MG TAB PO SCH (09:00)
[2020-10-11] MEDS ORDERED: ENOXAPARIN 80 MG/0.8 ML SYRINGE SQ SCH (09:00)
[2020-10-11 09:07] LABS: Glucose,Whole Blood 123 mg/dL (75-99)
--- NOTE | 2020-10-11 09:11 | XR ---
EXAMINATION TYPE: XR chest 1V portable DATE OF EXAM: 10/11/2020 Comparison: 10/10/2020 Clinical History: 40-year-old male Tube placement Findings: NG tube courses below the diaphragm. Question visualization of an ET tube tip at the level of the tho racic inlet. Left subclavian CVC tip at the mid SVC. Right-sided hemodialysis catheter tip at the low er SVC. Right PICC tip at the upper SVC. Heart normal size. Diffuse interstitial opacities persist. W orsening consolidation at the right greater than left lower lungs. Impression: 1. Query presence of ET tube. If an ET tube is present, the tip may be high at the thoracic inlet lev el. It should be advanced further. 2. Worsening lower lung airspace disease, right greater than left.
[2020-10-11] MEDS: fentaNYL (PF) 2,500 MCG in SODIUM CHLORIDE 0.9% 200 ML IV SCH (10:01)
[2020-10-11] MEDS: SODIUM CHLORIDE 0.9% 150 ML with VASOPRESSIN 60 UNIT IV SCH ×2 (10:03)
[2020-10-11] MEDS: CHOLECALCIFEROL 25 MCG (1000 IU) TABLET PO SCH (10:07)
[2020-10-11] MEDS: CHLORHEXIDINE GLUCONATE 15 ML CUP MUCOUS MEM SCH ×2 (10:07→23:14)
[2020-10-11] MEDS: ASCORBIC ACID 500 MG TAB PO SCH ×2 (10:07→22:45)
[2020-10-11] MEDS: IVERMECTIN 3 MG TABLET PO SCH (10:08)
[2020-10-11] MEDS: ZINC SULFATE 220 MG CAP PO SCH (10:08)
--- NOTE | 2020-10-11 10:40 | P.NPCON ---
History of Present Illness - Reason for Consult acute renal failure, hyperkalemia - History of Present Illness Reason for consultation: Acute kidney injury and hyperkalemia History of present illness: Patient is a 40-year-old male seen in renal consultation for acute kidney injury and hyperkalemia. Patient presented to the hospital on 10/02/2020 due to generalized weakness, fever and shortness of breath. He did test positive for cold in 19 on admission. Patient became progressively short of breath and was requiring BiPAP. He was subsequently intubated for worsening respiratory distress. Patient's baseline creatinine is near 1 and is up to 6.85 today. Yesterday the patient's potassium got as high as 8.3 which was medically treated multiple times. Patient is currently on maximum dose of Levophed as well as vasopressin. He is also on an insulin drip. Renal replacement therapy in the form of SLED was attempted yesterday and the patient could not tolerated. His blood pressure dropped down in the systolic 50s to 60s in the treatment had to be terminated within 15 minutes. I saw him during SLED this morning and again his hemodynamics worsened in the treatment had to be terminated. Potassium level this morning was 5.2. He remains oliguric. He is maintained on bicarb drip. Vital signs: Blood pressure in the systolic 90s despite high-dose vasopressor support. Tachycardic. General: The patient appeared well nourished and normally developed. HEENT: Intubated. LUNGS: Breath sounds decreased. HEART: Tachycardic. ABDOMEN: Soft, obese. EXTREMITITES: No edema. Past Medical History Past Medical History: No Reported History History of Any Multi-Drug Resistant Organisms: None Reported Past Surgical History: Adenoidectomy, Tonsillectomy Past Anesthesia/Blood Transfusion Reactions: No Reported Reaction Smoking Status: Never smoker - Past Family History Mother Additional Family Medical History / Comment(s): Obese Father Family Medical History: Myocardial Infarction ([place]) Medications and Allergies Home Medications Medication Instructions Recorded Confirmed Type No Known Home Medications 06/21/16 10/02/20 History Allergies Allergy/AdvReac Type Severity Reaction Status Date / Time No Known Allergies Allergy Verified 10/02/20 10:31 Physical Exam Vitals: Vital Signs Temp Pulse Pulse Resp BP Pulse Ox 10/11/20 09:31 97.0 F L 125 H 35 H 117/83 10/11/20 09:00 129 H 36 H 94 L 10/11/20 08:45 133 H 36 H 93 L 10/11/20 08:30 133 H 36 H 92 L 10/11/20 08:15 117 H 36 H 89 L 10/11/20 08:00 96.5 F L 131 H 36 H 91 L 10/11/20 07:45 131 H 36 H 92 L 10/11/20 07:30 130 H 36 H 94 L 10/11/20 07:15 131 H 36 H 94 L 10/11/20 07:00 129 H 36 H 95 10/11/20 06:45 133 H 36 H 94 L 10/11/20 06:30 134 H 36 H 87 L 10/11/20 06:15 134 H 36 H 87 L 10/11/20 06:00 126 H 36 H 88 L 10/11/20 05:45 134 H 36 H 88 L 10/11/20 05:30 135 H 36 H 89 L 10/11/20 05:15 135 H 36 H 88 L 10/11/20 05:00 135 H 36 H 87 L 10/11/20 04:45 135 H 36 H 88 L 10/11/20 04:30 98.7 F 135 H 29 H 87 L 10/11/20 04:15 135 H 36 H 87 L 10/11/20 04:00 135 H 36 H 87 L 10/11/20 03:45 137 H 29 H 87 L 10/11/20 03:30 137 H 36 H 86 L 10/11/20 03:15 137 H 36 H 86 L 10/11/20 03:00 137 H 36 H 85 L 10/11/20 02:45 137 H 23 85 L 10/11/20 02:30 137 H 36 H 85 L 10/11/20 02:00 137 H 36 H 84 L 10/11/20 01:45 138 H 36 H 84 L 10/11/20 01:30 138 H 36 H 84 L 10/11/20 01:15 138 H 36 H 85 L 10/11/20 01:00 138 H 37 H 85 L 10/11/20 00:45 137 H 36 H 86 L 10/11/20 00:30 138 H 36 H 87 L 10/11/20 00:15 141 H 34 H 85 L 10/11/20 00:00 101.8 F H 140 H 22 84 L 10/10/20 23:45 140 H 36 H 84 L 10/10/20 23:30 142 H 36 H 84 L 10/10/20 23:15 144 H 36 H 85 L 10/10/20 23:00 144 H 36 H 87 L 10/10/20 22:45 144 H 23 87 L 10/10/20 22:30 144 H 36 H 86 L 10/10/20 22:15 146 H 36 H 87 L 10/10/20 22:00 149 H 40 H 85 L 10/10/20 21:45 149 H 36 H 85 L 10/10/20 21:30 152 H 36 H 85 L 10/10/20 21:24 103.9 F H 156 H 36 H 85/48 10/10/20 21:15 152 H 36 H 88 L 10/10/20 21:00 160 H 36 H 82 L 10/10/20 20:45 165 H 36 H 84 L 10/10/20 20:30 161 H 36 H 76 L 10/10/20 20:15 103 F H 160 H 37 H 79 L 10/10/20 20:00 149 H 36 H 78 L 10/10/20 19:45 170 H 34 H 72 L 10/10/20 19:30 158 H 24 84 L 10/10/20 19:15 156 H 36 H 84 L 10/10/20 19:00 154 H 36 H 87 L 10/10/20 18:45 154 H 35 H 87 L 10/10/20 18:30 149 H 36 H 87 L 10/10/20 18:15 149 H 36 H 87 L 10/10/20 18:00 104.2 F H 144 H 36 H 85 L 10/10/20 17:45 144 H 36 H 84 L 10/10/20 17:30 138 H 36 H 82 L 10/10/20 17:15 160 H 36 H 93 L 10/10/20 17:00 104.5 F H 146 H 36 H 92 L 10/10/20 16:45 142 H 36 H 90 L 10/10/20 16:30 128 H 36 H 88 L 10/10/20 16:15 140 H 36 H 90 L 10/10/20 16:00 103.4 F H 140 H 36 H 90 L 10/10/20 15:45 141 H 36 H 89 L 10/10/20 15:30 103.1 F H 141 H 36 H 88 L 10/10/20 15:15 141 H 36 H 78 L 10/10/20 15:00 140 H 36 H 80 L 10/10/20 14:45 140 H 36 H 81 L 10/10/20 14:30 137 H 36 H 81 L 10/10/20 14:15 135 H 36 H 82 L 10/10/20 14:00 133 H 36 H 82 L 10/10/20 13:45 133 H 36 H 85 L 10/10/20 13:30 130 H 36 H 85 L 10/10/20 13:15 130 H 36 H 85 L 10/10/20 13:00 142 H 36 H 84 L 10/10/20 12:45 141 H 36 H 84 L 10/10/20 12:30 130 H 36 H 87 L 10/10/20 12:15 142 H 36 H 78 L 10/10/20 12:00 101 F H 131 H 36 H 79 L 10/10/20 11:45 135 H 36 H 84 L 10/10/20 11:30 130 H 36 H 83 L 10/10/20 11:15 133 H 36 H 82 L 10/10/20 11:00 134 H 36 H 84 L 10/10/20 10:45 140 H 36 H 85 L 10/10/20 10:30 125 H 36 H 88 L Intake and Output 10/10/20 10/11/20 10/11/20 22:59 06:59 14:59 Intake Total 2877.035 1879.105 780.824 Output Total 5 10 0 Balance 2872.035 1869.105 780.824 Intake: IV 1939 1174 469 .9 pressure bag 24 24 9 Calcium Gluconate 1 gm In 200 Sodium Chloride 0.9% 100 ml @ 100 mls/hr IVPB ONCE ONE Rx#:[id number] Dextrose 5% in Water 1, 800 800 300 000 ml @ 100 mls/hr IV . [id number] [facility] with Sodium Bicarb (1 Meq/ml) 150 ml Rx#:[id number] Lactated Ringers 1,000 ml 400 350 150 @ 50 mls/hr IV .Q20H [facility] Rx#:[id number] Sodium Chloride 0.9% 150 15 10 ml @ 0.03 UNITS/MIN 4.59 mls/hr IV .Q24H [facility] with Vasopressin 60 unit Rx#: [id number] Vancomycin 2,000 mg In 500 Sodium Chloride 0.9% 500 ml 500 ml @ 167 mls/hr IVPB ONCE ONE Rx#: [id number] Intake, IV Titration 928.035 705.105 311.824 Amount Insulin Regular 100 unit 83.200 41.283 0 In Sodium Chloride 0.9% 100 ml @ Per Protocol IV .Q0M [facility] Rx#:[id number] Norepinephrine 32 mg In 399.651 213.15 250 Sodium Chloride 0.9% 218 ml @ 0.05 MCG/KG/MIN 3.15 mls/hr IV .Q24H [facility] Rx#: [id number] fentaNYL (PF) 2,500 mcg 196.8 250 In Sodium Chloride 0.9% 200 ml @ Per Protocol IV .Q0M [facility] Rx#:[id number] propofoL 1,000 mg In 248.384 200.672 61.824 Empty Bag 1 bag @ Titrate IV .Q0M [facility] Rx#: [id number] Tube Feeding 10 Output: Urine 5 10 0 Hemodialysis 0 Other: Voiding Method Indwelling Catheter Indwelling Catheter Indwelling Catheter ABP, PAP, CO, CI - Last 8 Hours Arterial Blood Pressure 68/50 Arterial Blood Pressure 94/68 Arterial Blood Pressure 94/66 Arterial Blood Pressure 51/38 Arterial Blood Pressure 94/64 Arterial Blood Pressure 87/63 Arterial Blood Pressure 93/69 Arterial Blood Pressure 97/71 Arterial Blood Pressure 98/69 Arterial Blood Pressure 95/70 Arterial Blood Pressure 94/66 Arterial Blood Pressure 86/64 Arterial Blood Pressure 84/63 Arterial Blood Pressure 83/59 Arterial Blood Pressure 83/61 Arterial Blood Pressure 78/58 Arterial Blood Pressure 78/58 Arterial Blood Pressure 74/56 Arterial Blood Pressure 71/53 Arterial Blood Pressure 72/52 Arterial Blood Pressure 72/51 Arterial Blood Pressure 69/49 Arterial Blood Pressure 66/47 Arterial Blood Pressure 66/46 Arterial Blood Pressure 65/46 Arterial Blood Pressure 62/45 Arterial Blood Pressure 60/43 Results - Lab Results Most recent lab results ABG pH 7.17 (7.35-7.45) L* 10/11/20 05:22 ABG pCO2 65 mmHg (35-45) H 10/11/20 05:22 ABG pO2 105 mmHg (83-108) 10/11/20 05:22 ABG HCO3 24 mmol/L (21-25) 10/11/20 05:22 ABG O2 Saturation 96.5 % (94-97) 10/11/20 05:22 Calcium 6.4 mg/dL (8.4-10.2) L* 10/11/20 05:00 Phosphorus 9.3 mg/dL (2.5-4.5) H* 10/10/20 14:15 Magnesium 2.2 mg/dL (1.6-2.3) 10/10/20 04:35 10/11/20 05:00 10/11/20 05:00 Assessment and Plan Plan: Assessment: 1. Acute kidney injury secondary to ATN secondary to septic shock. Baseline creatinine near 1 and is up to 6.85 today. 2. Acute hypoxic respiratory failure, currently intubated. 3. Septic shock secondary to covid-19 pneumonia maintained on Levophed and vasopressin. 4. Metabolic acidosis secondary to acute kidney injury maintain on bicarb drip. Better. 5. Hyperkalemia secondary to acute kidney injury, metabolic acidosis and hyperglycemia. 6. Moderate tricuspid regurgitation and pulmonary hypertension. 7. Obesity. 8. Hypocalcemia secondary to acute kidney injury. Replaced. 9. Hyperphosphatemia secondary to acute kidney injury. Plan: Stop renal replacement therapy (SLED) due to worsening hemodynamics. Tight blood sugar control. Maintain bicarb drip. Maintain tube feeding. Add PhosLo. Wean FiO2 and vasopressors as able. Continue to assess on daily basis. Repeat labs this afternoon. Overall prognosis guarded. Thank you for the consultation. I will continue to follow patient with rachna lugo uring his hospital stay.
[2020-10-11 10:45] LABS: Glucose,Whole Blood 123 mg/dL (75-99)
[2020-10-11 11:17] LABS: ABG Base Excess -7.8 mmol/L; ABG HCO3 21 mmol/L (21-25); ABG PCO2 64 mmHg (35-45); ABG PO2 77 mmHg (83-108); ABG TCO2 23 mmol/L (19-24); Allen Test Performed? Yes
[2020-10-11 11:19] LABS: Band Neutrophils % 10 %; Eosinophils # (M) 0.27 k/uL (0-0.7); Lymphocytes # (M) 1.33 k/uL (1.0-4.8); Metamyelocytes % 3 %; Monocytes # (M) 0.53 k/uL (0-1.0); Neutrophils % (M) 80 %; Nucleated Red Blood Cells 2 /100 WBC (0-0); Polychromasia Present; Total Cells Counted 200; WBC 26.5 k/uL (3.8-10.6)
[2020-10-11 11:19] LABS: ABG PH 7.13 (7.35-7.45)
[2020-10-11 11:20] LABS: Anisocytosis (M) Present; Poikilocytosis (M) Present
[2020-10-11] MEDS ORDERED: VANCOMYCIN 2,000 MG in SODIUM CHLORIDE 0.9% 500 ML 500 ML IVPB ONE (12:00)
[2020-10-11 13:18] LABS: Glucose,Whole Blood 125 mg/dL (75-99)
[2020-10-11 14:06] LABS: Hepatitis B Surface Antibody Non-Reactive (Non-Reactive); Hepatitis B Surface Antigen Non-Reactive (Non-Reactive)
--- NOTE | 2020-10-11 14:22 | CONS ---
DATE OF CONSULTATION: 10/10/2020 This is a 40-year-old gentleman. I was consulted for urgent dialysis catheter placement. The patient is a 40-year-old gentleman who is COVID positive. He had acute chronic renal failure and the patient has been intubated. PERSONAL HISTORY: Nonsmoker. ALLERGIES: No known allergies. PHYSICAL EXAMINATION: The patient was seen in the intensive care unit. Patient has been intubated. CARDIOVASCULAR: Patient has tachycardic. CHEST: Has bilateral rhonchi and crackles. ABDOMEN: Is nontender. Femorals are 1+. PLAN: Placement of dialysis catheter jugular approach. Risks and complications discussed. MMODL / IJN: [id number] / MTDD
[2020-10-11] MEDS: CALCIUM ACETATE 667 MG TAB PO SCH ×2 (14:33→18:43)
[2020-10-11] MEDS: CISATRACURIUM 200 MG in SODIUM CHLORIDE 0.9% 180 ML IV SCH (14:42)
[2020-10-11 16:25] LABS: Glucose,Whole Blood 110 mg/dL (75-99)
[2020-10-11 16:54] LABS: Ferritin >16500.0 ng/mL (10.0-291.0)
[2020-10-11 17:13] LABS: Magnesium 2.2 mg/dL (1.6-2.3)
[2020-10-11 17:29] LABS: Phosphorus 13.5 mg/dL (2.5-4.5)
[2020-10-11] MEDS ORDERED: SODIUM BICARB 8.4% 50 ML SYR (1 MEQ/ML) IV STA (18:25)
[2020-10-11 19:21] VITALS: BP 83/54
[2020-10-11] MEDS ORDERED: CALCIUM GLUCONATE 2 GM in SODIUM CHLORIDE 0.9% 100 ML IVPB ONE (19:30)
--- NOTE | 2020-10-11 20:30 | P.PN ---
Progress Note - Text Progress Note Date: 10/11/20 Presenting complaint Short of breath History of Present Illness Pleasant 48-year-old male, whose PCP is Dr. Ring, came in with complains of weakness fever he denied any shortness of breath patient but patient is hypoxic and requiring 4 L of oxygen patient denied any significant cough diarrhea. Patient is found to have Covid 19. Patient had a chest x-ray which is showing bilateral interstitial infiltrates. Patient did get a dose of ACTEMRA. ID did start the patient on Remdesivir. Pulmonary did not feel the need for the same. Discontinued. Worsening short of breath. Placed on BiPAP October 04: being moved to the ICU. Patient intubated on October 09. Worsening renal function. Dialysis catheter was placed on October 10. Unsuccessful hemodialysis. Today: ICU: .: FiO2 19 a PEEP of 24. Drips included propofol, Nimbex, fentanyl, norepinephrine, insulin, vasopressin. Heart rate in the 120s. Seen by nephrology today. Because of poor hemodynamics not for any further hemodialysis Review of systems: Patient intubated Active Medications Acetaminophen (Acetaminophen Tab 325 Mg Tab) 650 mg PO Q6HR PRN PRN Reason: Mild Pain or Fever > 100.5 Last Admin: 10/10/20 02:02 Dose: 650 mg Documented by: Ascorbic Acid (Ascorbic Acid 500 Mg Tab) 500 mg PO BID [facility] Last Admin: 10/11/20 10:07 Dose: 500 mg Documented by: Calcium Acetate (Calcium Acetate 667 Mg Tab) 667 mg PO TID-W/MEALS [facility] Last Admin: 10/11/20 18:43 Dose: 667 mg Documented by: Chlorhexidine Gluconate (Chlorhexidine Gluconate 15 Ml Cup) 15 ml MUCOUS MEM BID [facility] Last Admin: 10/11/20 10:07 Dose: 15 ml Documented by: Cholecalciferol (Cholecalciferol 25 Mcg (1000 Iu) Tablet) 125 mcg PO DAILY [facility] Last Admin: 10/11/20 10:07 Dose: 125 mcg Documented by: Enoxaparin Sodium (Enoxaparin 80 Mg/0.8 Ml Syringe) 70 mg SQ Q24HR [facility] Last Admin: 10/11/20 10:07 Dose: 70 mg Documented by: Famotidine (Famotidine 20 Mg Tab) 20 mg PO DAILY [facility] Last Admin: 10/11/20 10:08 Dose: 20 mg Documented by: Cisatracurium Besylate 200 mg/ (Sodium Chloride) 200 mls @ 8.064 mls/hr IV .Q24H [facility]; Protocol Last Admin: 10/11/20 14:42 Dose: 2 mcg/kg/min, 16.128 mls/hr Documented by: Propofol 1,000 mg/ IV Solution 100 mls @ 0 mls/hr IV .Q0M [facility]; Protocol Last Admin: 10/11/20 10:06 Dose: 50 mcg/kg/min, 40.32 mls/hr Documented by: Norepinephrine Bitartrate 32 (mg/ Sodium Chloride) 250 mls @ 3.15 mls/hr IV .Q24H [facility]; Protocol Last Admin: 10/11/20 18:44 Dose: 1 mcg/kg/min, 63 mls/hr Documented by: Fentanyl Citrate 2,500 mcg/ (Sodium Chloride) 250 mls @ 0 mls/hr IV .Q0M [facility]; Protocol Last Admin: 10/11/20 10:01 Dose: 120 mcg/hr, 12 mls/hr Documented by: Sodium Bicarbonate 150 ml/ (Dextrose/Water) 1,150 mls @ 100 mls/hr IV .Q14P27B [facility] Last Admin: 10/11/20 17:19 Dose: 100 mls/hr Documented by: Insulin Human Regular 100 unit (/ Sodium Chloride) 101 mls @ 0 mls/hr IV .Q0M [facility]; Protocol Last Titration: 10/11/20 07:11 Dose: 3.5 ml/hr, 3.5 mls/hr Documented by: Vasopressin 60 unit/ Sodium (Chloride) 153 mls @ 4.59 mls/hr IV .Q24H [facility] Last Admin: 10/11/20 10:03 Dose: 4.59 mls/hr Documented by: Piperacillin Sod/Tazobactam (Sod 3.375 gm/ Sodium Chloride) 100 mls @ 25 mls/hr IVPB Q12HR [facility] Calcium Gluconate 2 gm/ Sodium (Chloride) 120 mls @ 100 mls/hr IVPB ONCE ONE Stop: 10/11/20 20:41 Last Admin: 10/11/20 18:44 Dose: 100 mls/hr Documented by: Ivermectin (Ivermectin 3 Mg Tablet) 27 mg PO DAILY [facility] Stop: 10/14/20 09:01 Last Admin: 10/11/20 10:08 Dose: 27 mg Documented by: Methylprednisolone Sodium Succinate (Methylprednisolone Sod Succi 125 Mg/2 Ml Vial) 60 mg IV Q6HR [facility] Last Admin: 10/11/20 18:43 Dose: 60 mg Documented by: Miscellaneous Information (Vancomycin Iv Per Pharmacy 1 Each Misc) 1 each MISCELLANE DIRECTED PRN; Protocol PRN Reason: Per Protocol Multi-Ingred Cream/Lotion/Oil/Oint (Artificial Tears Ointment 3.5 Gm Tube) 1 applic BOTH EYES Q4HR [facility] Last Admin: 10/11/20 17:20 Dose: 1 applic Documented by: Naloxone HCl (Naloxone 0.4 Mg/Ml 1 Ml Vial) 0.2 mg IV Q2M PRN PRN Reason: Opioid Reversal Zinc Sulfate (Zinc Sulfate 220 Mg Cap) 220 mg PO DAILY [facility] Last Admin: 10/11/20 10:08 Dose: 220 mg Documented by: On examination: VITAL SIGNS: 96.9, 128, 36, 85 x 65, 66% on 90% FiO2 GENERAL APPEARANCE: , Laying in bed intubated RESPIRATORY: Respiratory effort increased. Accessory muscles are working Rest of the exam as per pulmonary and nursing INVESTIGATIONS, reviewed in the clinical context: October 11: WBC 26.5 hemoglobin 16.1 platelets 66 potassium 5.2 bun 57 creatinine 6.85 calcium 6.4 CPK 2246 LDH 68237 CRP 39.9. ABG show pH of 7.17 October 10: WBC 30.4 hemoglobin 16.7 platelets 1:30 ABG pH 7.06 pCO2 63 pO2 86 potassium 8.3 bun 41 and creatinine 3.68 October 09: WBC 11.9 hemoglobin 15 platelets 192 d-dimer 15.2 potassium 4.4 creatinine 0.88 CRP 12.4 pro-calcitonin 0.2 to October 08: Potassium 4.1 October 07: D-dimer 3.71 potassium 4.1 creatinine 1.10 October 06: WBC 7.9 hemoglobin 14.2 platelets 258 d-dimer 1.06 potassium 4.3 creatinine 0.95 October 05: WBC 7 hemoglobin 13.9 d-dimer 0.67 CRP 53.1. Chest o-kzj-subdic bibasilar. He had a little upper lobe and basilar infiltrates October 04: D-dimer 0.83 ABG: PO2 50 pCO2 45. Potassium 4.4 creatinine 1.07 CRP 81.8 D-dimer 0.82. AB.46, pCO2 34, pO2 128 CRP 65.9 Chest x-ray film personally reviewed by me-bilateral confluent infiltrates Admission labs: Pro-calcitonin 0.86 Coronavirus [PCR]: Detected Creatinine 1.78 Assessment and Plan Covid 19 pneumonia: Worsening -on Decadron, multivitamins, Lovenox.vitamin C, vitamin D, Pepcid, zinc (Remdesivir given 1 dose per ID. Discontinued by pulmonary.), ACTEMRA given Sepsis from COVID 19 pneumonia-worsening IV fluids. Follow clinically -Acute severe hypoxic respiratory failure secondary to COVID 19 pneumonia, - worsening BiPAP. -100%. Patient intubated today on October 09 -Acute renal failure creatinine 1.7 likely ATN.-Worsening Continue with IV fluids. Creatinine-3.68 -Severe hyperkalemia secondary to acute kidney injury For urgent hemodialysis -Morbid obesity BMI 41.8 Follow weight loss diet as an outpatient and follow with PCP -Hyperglycemia secondary to steroids Follow Accu-Cheks -Hypoalbuminemia Acute phase reactant -Acute hypoxic metabolic encephalopathy-slow to respond Oxygen supplementation Patient did not tolerate hemodialysis. Currently held. On multiple drips for support. Prognosis not good. Nurse has spoken to the family.
[2020-10-11] MEDS ORDERED: PIPERACILLIN-TAZOBACTAM 3.375 GM in SODIUM CHLORIDE 0.9% 100 ML IVPB SCH (21:00)
[2020-10-11] MEDS ORDERED: SODIUM BICARB 8.4% 50 ML SYR (1 MEQ/ML) ONE ×3 (23:00→23:17)
[2020-10-11] MEDS ORDERED: MORPHINE SULFATE 4 MG/ML SYRINGE IV PRN (23:35)
[2020-10-11] MEDS ORDERED: MORPHINE SULFATE 2 MG/ML SYRINGE IV PRN (23:35)
[2020-10-12] MEDS ORDERED: SCOPOLAMINE 1.5MG/72HR PATCH TRANSDERM SCH
[2020-10-12 00:25] VITALS: PULSE 126; RESP 30; TEMP 98
--- NOTE | 2020-10-12 22:54 | P.DS ---
Providers Date of admission: 10/02/20 12:05 Expected date of discharge: 10/12/20 (Patient ) Attending physician: Amarjit Payton Consults: 10/02/20 14:31 Consult Physician Routine Consulting Provider: Maria Luz Nuñez Consult Reason/Comments: Covid Do you want consulting provider notified?: Yes 10/03/20 11:49 Consult Physician Stat Consulting Provider: Guille Frias Consult Reason/Comments: low oxygen Do you want consulting provider notified?: Yes 10/10/20 16:09 Consult Physician Stat Consulting Provider: Sarah Lambert Consult Reason/Comments: acute renal failure Do you want consulting provider notified?: Yes 10/10/20 16:11 Consult Physician Stat Consulting Provider: Elver Fields Consult Reason/Comments: placement of temp hemodialysis cath Do you want consulting provider notified?: Yes Primary care physician: [facility] Course: Presenting complaint Short of breath History of Present Illness Pleasant 48-year-old male, whose PCP is Dr. Ring, came in with complains of weakness fever he denied any shortness of breath patient but patient is hypoxic and requiring 4 L of oxygen patient denied any significant cough diarrhea. Patient is found to have Covid 19. Patient had a chest x-ray which is showing bilateral interstitial infiltrates. Patient did get a dose of ACTEMRA. ID did start the patient on Remdesivir. Pulmonary did not feel the need for the same. Discontinued. Worsening short of breath. Placed on BiPAP October 04: being moved to the ICU. Patient intubated on October 09. Worsening renal function. Dialysis catheter was placed on October 10. Unsuccessful hemodialysis. Patient had been responding poorly. Gastric laying down. With increasing oxygen requirements. Today: ICU: Early hours of this morning patient succumbed underlying condition. Consultation: Dr. Holman from vascular surgery Dr. Stewart from nephrology Dr. Sharlene cano from critical care INVESTIGATIONS, reviewed in the clinical context: October 11: WBC 26.5 hemoglobin 16.1 platelets 66 potassium 5.2 bun 57 creatinine 6.85 calcium 6.4 CPK 2246 LDH 77988 CRP 39.9. ABG show pH of 7.17 October 10: WBC 30.4 hemoglobin 16.7 platelets 1:30 ABG pH 7.06 pCO2 63 pO2 86 potassium 8.3 bun 41 and creatinine 3.68 October 09: WBC 11.9 hemoglobin 15 platelets 192 d-dimer 15.2 potassium 4.4 creatinine 0.88 CRP 12.4 pro-calcitonin 0.2 to October 08: Potassium 4.1 October 07: D-dimer 3.71 potassium 4.1 creatinine 1.10 October 06: WBC 7.9 hemoglobin 14.2 platelets 258 d-dimer 1.06 potassium 4.3 creatinine 0.95 October 05: WBC 7 hemoglobin 13.9 d-dimer 0.67 CRP 53.1. Chest q-pfe-dystol bibasilar. He had a little upper lobe and basilar infiltrates October 04: D-dimer 0.83 ABG: PO2 50 pCO2 45. Potassium 4.4 creatinine 1.07 CRP 81.8 D-dimer 0.82. AB.46, pCO2 34, pO2 128 CRP 65.9 Chest x-ray film personally reviewed by me-bilateral confluent infiltrates Admission labs: Pro-calcitonin 0.86 Coronavirus [PCR]: Detected Creatinine 1.78 Cause of : COVID 19 pneumonia Other medical problems Covid 19 pneumonia: Worsening -on Decadron, multivitamins, Lovenox.vitamin C, vitamin D, Pepcid, zinc (Remdesivir given 1 dose per ID. Discontinued by pulmonary.), ACTEMRA given Sepsis from COVID 19 pneumonia-worsening IV fluids. Follow clinically -Acute severe hypoxic respiratory failure secondary to COVID 19 pneumonia, - worsening BiPAP. -100%. Patient intubated today on October 09 -Acute renal failure creatinine 1.7 likely ATN.-Worsening Continue with IV fluids. Creatinine-3.68 -Severe hyperkalemia secondary to acute kidney injury For urgent hemodialysis -Morbid obesity BMI 41.8 Follow weight loss diet as an outpatient and follow with PCP -Hyperglycemia secondary to steroids Follow Accu-Cheks -Hypoalbuminemia Acute phase reactant -Acute hypoxic metabolic encephalopathy-slow to respond Oxygen supplementation Disposition: Patient Patient Condition at Discharge: Fair Plan - Discharge Summary Discharge Rx Participant: No New Discharge Prescriptions: No Action No Known Home Medications Discharge Medication List No Known Home Medications 06/21/16 [History] Follow up Appointment(s)/Referral(s): Kong Ring MD [Primary Care Provider] - 1-2 days Discharge Disposition: - Preliminary Cause of Preliminary Cause of : COVID 19 pneumonia
== END 2020-10-12 05:30 | disposition expired | DRG 871 ==
LOC: EC 09:44 → 4SSUR 12:05 → 2SICU 10-03 12:40 → 4SSUR 10-03 13:53 → 3SCARD 10-03 15:53 → 2SICU 10-04 12:25
PROVIDERS: ADMIT Hospitalist; ATTEND Hospitalist
PROC: XW033E5 Introduction of Remdesivir Anti-infective into Peripheral Vein, Percutaneous Approach, New Technology Group 5 (ICD-10-PCS; 2020-10-02)
PROC: XW033H5 Introduction of Tocilizumab into Peripheral Vein, Percutaneous Approach, New Technology Group 5 (ICD-10-PCS; 2020-10-03)
PROC: XW13325 Transfusion of Convalescent Plasma (Nonautologous) into Peripheral Vein, Percutaneous Approach, New Technology Group 5 (ICD-10-PCS; 2020-10-03)
PROC: 5A0935A Assistance with Respiratory Ventilation, Less than 24 Consecutive Hours, High Flow/Velocity Cannula (ICD-10-PCS; 2020-10-03)
PROC: 5A09457 Assistance with Respiratory Ventilation, 24-96 Consecutive Hours, Continuous Positive Airway Pressure (ICD-10-PCS; 2020-10-03)
PROC: 02HV33Z Insertion of Infusion Device into Superior Vena Cava, Percutaneous Approach (ICD-10-PCS; 2020-10-07)
PROC: 3E0436Z Introduction of Nutritional Substance into Central Vein, Percutaneous Approach (ICD-10-PCS; 2020-10-07)
PROC: 5A1945Z Respiratory Ventilation, 24-96 Consecutive Hours (ICD-10-PCS; principal; 2020-10-09)
PROC: 0BH17EZ Insertion of Endotracheal Airway into Trachea, Via Natural or Artificial Opening (ICD-10-PCS; principal; 2020-10-09)
PROC: 03HY32Z Insertion of Monitoring Device into Upper Artery, Percutaneous Approach (ICD-10-PCS; 2020-10-09)
PROC: 4A133B1 Monitoring of Arterial Pressure, Peripheral, Percutaneous Approach (ICD-10-PCS; 2020-10-09)
PROC: 4A133J1 Monitoring of Arterial Pulse, Peripheral, Percutaneous Approach (ICD-10-PCS; 2020-10-09)
PROC: 02HV33Z Insertion of Infusion Device into Superior Vena Cava, Percutaneous Approach (ICD-10-PCS; 2020-10-09)
PROC: 3E033XZ Introduction of Vasopressor into Peripheral Vein, Percutaneous Approach (ICD-10-PCS; 2020-10-09)
PROC: 0D9670Z Drainage of Stomach with Drainage Device, Via Natural or Artificial Opening (ICD-10-PCS; 2020-10-09)
PROC: 02HV33Z Insertion of Infusion Device into Superior Vena Cava, Percutaneous Approach (ICD-10-PCS; 2020-10-10)
PROC: 5A1D70Z Performance of Urinary Filtration, Intermittent, Less than 6 Hours Per Day (ICD-10-PCS; 2020-10-10)
PROC: 3E0G76Z Introduction of Nutritional Substance into Upper GI, Via Natural or Artificial Opening (ICD-10-PCS; 2020-10-10)
DX: A41.89 Other specified sepsis (principal); U07.1 COVID-19; J96.01 Acute respiratory failure with hypoxia; N17.0 Acute kidney failure with tubular necrosis; R65.21 Severe sepsis with septic shock; G93.41 Metabolic encephalopathy; J12.82 Pneumonia due to coronavirus disease 2019; Z68.41 Body mass index [BMI] 40.0-44.9, adult; E87.2 Acidosis; M62.82 Rhabdomyolysis; D69.6 Thrombocytopenia, unspecified; I27.20 Pulmonary hypertension, unspecified; E83.39 Other disorders of phosphorus metabolism; E83.51 Hypocalcemia; E88.09 Other disorders of plasma-protein metabolism, not elsewhere classified; E66.01 Morbid (severe) obesity due to excess calories; Z66 Do not resuscitate; Z51.5 Encounter for palliative care; D72.810 Lymphocytopenia; I07.1 Rheumatic tricuspid insufficiency; E87.5 Hyperkalemia; R73.9 Hyperglycemia, unspecified; R19.7 Diarrhea, unspecified; Z90.89 Acquired absence of other organs; Z98.890 Other specified postprocedural states; Z87.891 Personal history of nicotine dependence; Z71.3 Dietary counseling and surveillance; Z82.49 Family history of ischemic heart disease and other diseases of the circulatory system; T38.0X5A Adverse effect of glucocorticoids and synthetic analogues, initial encounter
CPT/HCPCS: 36415; 36573; 36600; 71045; 80048; 80053; 82330; 82550; 82728; 82805; 83605; 83615; 83735; 84100; 84132; 84145; 84478; 85025; 85379; 85384; 85610; 85730; 86140; 86706; 86850; 86900; 86901; 87040; 87077; 87186; 87340; 87635; 90935; 93005; 93306; 94002; 94003; 94660; 96374; 99285